=== PATIENT | female | born 1980 | race Caucasian/White ===

== ENCOUNTER → 2021-02-18 | Day surgery (SDC) | payer BC ==
[2011-12-23 09:42] VITALS: BP 127/77
--- NOTE | 2021-02-18 12:31 | RAD REPORT ---
EXAM DESCRIPTION: US - Breast Core BX w/US Guidance - 02/18/2021 10:53 am CLINICAL HISTORY: ICD N63.10, R92.8 COMPARISON: ultrasound February 14, 2021 TECHNIQUE: The risks, benefits alternatives to the procedure were explained to the patient and infor med consent obtained. Skin, subcutaneous and breast tissues anesthetized with lidocaine. Under sonographic guidance, two 14 gauge vacuum assisted core biopsies of the mass within the outer r ight breast performed. 2 centimeter specimens obtained. Tissue given to pathology. Subsequently a localizing clip was placed into the mass. Patient experienced no immediate complication IMPRESSION: Vacuum assisted core biopsies of the right breast mass
== END ==
LOC: DS 10:30
PROVIDERS: ATTEND Physician Assistant
DX: N63.10 Unspecified lump in the right breast, unspecified quadrant (principal); R92.8 Other abnormal and inconclusive findings on diagnostic imaging of breast
CPT/HCPCS: 19083; 88305

== ENCOUNTER 2022-03-30 14:25 | Emergency (ER) | payer BC, OTHER ==
--- OUTSIDE RECORDS SUMMARY | 2022-03-30 14:39 | XMS REPORT | Continuity of Care Document ---
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 times Medicin daily. e famotidine 2021-0 Yes [id number] 20mg Take 1 [facility] (PEPCID) 20 1-28 Tablet by Col lege MG tablet 00:00: mouth two of 00 times Medicin daily. e famotidine 2021-0 Yes [id number] 20mg Take 1 [facility] (PEPCID) 20 1-28 Tablet by Col lege MG tablet 00:00: mouth two of 00 times Medicin daily. e famotidine 2021-0 Yes [id number] 20mg Take 1 [facility] (PEPCID) 20 1-28 Tablet by Col lege MG tablet 00:00: mouth two of 00 times Medicin daily. e famotidine 2-0 Yes [id number] 20mg Take 1 [facility] (PEPCID) 20 1-28 Tablet by Col [facility]ge MG tablet 00:00: mouth two of 00 times Medicin daily. e famotidine 2-0 Yes [id number] 20mg Take 1 [facility] (PEPCID) 20 1-28 Tablet by Col [facility]ge MG tablet 00:00: mouth two of 00 times Medicin daily. e famotidine 2022-0 Yes [id number] 20mg Take 1 [facility] (PEPCID) 20 1-28 Tablet by Col lege MG tablet 00:00: mouth two of 00 times Medicin daily. e famotidine 2-0 Yes [id number] 20mg Take 1 [facility] (PEPCID) 20 1-28 Tablet by Col [facility]ge MG tablet 00:00: mouth two of 00 times Medicin daily. e famotidine Yes [id number] 20mg Take 1 [facility] (PEPCID) 20 - Tablet by Col lege MG tablet 00:00: mouth two of 00 times Medicin daily. e famotidine Yes [id number] 20mg Take 1 [facility] (PEPCID) 20 - Tablet by Col lege MG tablet 00:00: mouth two of 00 times Medicin daily. e venlafaxine 2021- No 50mg Take 1 [facility] (EFFEXOR) 1-28 -19 Tablet by [facility] 50 MG 00:00: 00:00 mouth 3 of tablet 00 :00 times Medicin daily. e venlafaxine Yes [id number] 37.5mg Take 1 [facility] (EFFEXOR) 1-26 Tablet by Colle ge 37.5 MG 00:00: mouth of tablet 00 daily. Medicin e venlafaxine Yes [id number] 37.5mg Take 1 [facility] (EFFEXOR) 1-26 Tablet by Colle ge 37.5 MG 00:00: mouth of tablet 00 daily. Medicin e Letrozole 2021- No TAKE 1 [facility] 2.5 MG TABS 1-18 06-27 TABLET BY Co llege 00:00: 00:00 MOUTH of 00 :00 EVERY DAY Medicin e Letrozole Yes TAKE 1 [facility] 2.5 MG TABS 1-13 TABLET BY Col lege 00:00: MOUTH of 00 EVERY DAY Medicin e Letrozole Yes TAKE 1 [facility] 2.5 MG TABS 1-13 TABLET BY Col lege 00:00: MOUTH of 00 EVERY DAY Medicin e Letrozole 2021-0 2021- No TAKE 1 [facility] 2.5 MG TABS 1-13 - TABLET BY Co llege 00:00: 00:00 MOUTH of 00 :00 EVERY DAY Medicin e VENLAFAXINE 2020-05 Yes [id number] 37.5mg TAKE 1 [facility] XR 37.5 mg 2-23 CAPSULE BY ity of 24 hr 00:00: MOUTH [place] capsule 00 DAILY WITH Medica l BREAKFAST. Branch VENLAFAXINE 2020-05 Yes [id number] 37.5mg TAKE 1 [facility] XR 37.5 mg 2-23 CAPSULE BY ity of 24 hr 00:00: MOUTH [place] capsule 00 DAILY WITH Medica l BREAKFAST. Branch VENLAFAXINE 2020-05 Yes [id number] 37.5mg TAKE 1 [facility] XR 37.5 mg 2-23 CAPSULE BY ity of 24 hr 00:00: MOUTH [place] capsule 00 DAILY WITH Medica l BREAKFAST. Branch VENLAFAXINE 2020-05 Yes [id number] 37.5mg TAKE 1 [facility] XR 37.5 mg 2-23 CAPSULE BY ity of 24 hr 00:00: MOUTH [place] capsule 00 DAILY WITH Medica l BREAKFAST. Branch VENLAFAXINE 2020-05 Yes [id number] 37.5mg TAKE 1 [facility] XR 37.5 mg 2-23 CAPSULE BY ity of 24 hr 00:00: MOUTH [place] capsule 00 DAILY WITH Medica l BREAKFAST. Branch VENLAFAXINE 2020-05 Yes [id number] 37.5mg TAKE 1 [facility] XR 37.5 mg 2-23 CAPSULE BY ity of 24 hr 00:00: MOUTH [place] capsule 00 DAILY WITH Medica l BREAKFAST. [place] Cyanocobala 2020-05 Yes Take by [facility] min 2-03 mouth. [place] (VITAMIN 13:54: of B12 OR) 59 Medicin e Cholecalcif 2020-05 Yes Take by [facility] nicol 2-03 mouth. [place] (VITAMIN 13:54: of D-3 OR) 59 Medicin e VITAMIN A 2020-05 Yes Take by [facility] [place] 2-03 mouth. [place] 13:54: of 59 Medicin e CRANBERRY 2020-[address] [facility] r OR 2-03 mouth. [place] 13:54: of 59 Medicin e Ascorbic 2020-05 Yes Take by [facility] Acid 2-03 mouth. [place] (VITAMIN C 13:54: of OR) 59 Medicin e Continuous 2020-05 Yes [facility] Blood Gluc 1-24 College Sensor 00:00: of (DEXCOM G6 00 Medicin SENSOR) e MISC Continuous 2020-05 Yes [facility] Blood Gluc 1-24 College Sensor 00:00: of (DEXCOM G6 00 Medicin SENSOR) e MISC Continuous 2020-05 Yes [facility] Blood Gluc 1-24 College Sensor 00:00: of (DEXCOM G6 00 Medicin SENSOR) e MISC Continuous 2020-05 Yes [facility] Blood Gluc 1-24 College Sensor 00:00: of (DEXCOM G6 00 Medicin SENSOR) e MISC Continuous 2020-05 Yes [facility] Blood Gluc 1-24 College Sensor 00:00: of (DEXCOM G6 00 Medicin SENSOR) e MISC Continuous 2020-05 Yes [facility] Blood Gluc 1-24 College Sensor 00:00: of (DEXCOM G6 00 Medicin SENSOR) e MISC Continuous 2020-05 Yes [facility] Blood Gluc 1-24 College Sensor 00:00: of (DEXCOM G6 00 Medicin SENSOR) e MISC Continuous 2020-05 Yes [facility] Blood Gluc 1-24 College Sensor 00:00: of (DEXCOM G6 00 Medicin SENSOR) e MISC Continuous 2020-05 Yes [facility] Blood Gluc 1-24 College Sensor 00:00: of (DEXCOM G6 00 Medicin SENSOR) e MISC Continuous 2020-05 Yes [facility] Blood Gluc 1-24 College Sensor 00:00: of (DEXCOM G6 00 Medicin SENSOR) e MISC Continuous 2020-05 Yes [facility] Blood Gluc 1-24 College Sensor 00:00: of (DEXCOM G6 00 Medicin SENSOR) e MISC Continuous 2020-05 Yes [facility] Blood Gluc 1-24 College Sensor 00:00: of (DEXCOM G6 00 Medicin SENSOR) e MISC Continuous 2020-05 Yes [facility] Blood Gluc 1-23 College Transmit 00:00: of (DEXCOM G6 00 Medicin TRANSMITTER e ) MISC Continuous 2020-05 Yes [facility] Blood Gluc 1-23 College Transmit 00:00: of (DEXCOM G6 00 Medicin TRANSMITTER e ) MISC Continuous 2020-05 Yes [facility] Blood Gluc 1-23 College Transmit 00:00: of (DEXCOM G6 00 Medicin TRANSMITTER e ) MISC Continuous 2020-05 Yes [facility] Blood Gluc 1-23 College Transmit 00:00: of (DEXCOM G6 00 Medicin TRANSMITTER e ) MISC Continuous 2020-05 Yes [facility] Blood Gluc 1-23 College Transmit 00:00: of (DEXCOM G6 00 Medicin TRANSMITTER e ) MISC Continuous 2020-05 Yes [facility] Blood Gluc 1-23 College Transmit 00:00: of (DEXCOM G6 00 Medicin TRANSMITTER e ) MISC Continuous 2020-05 Yes [facility] Blood Gluc 1-23 College Transmit 00:00: of (DEXCOM G6 00 Medicin TRANSMITTER e ) MISC Continuous 2020-05 Yes [facility] Blood Gluc 06-22 College Transmit 00:00: of (DEXCOM G6 00 Medicin TRANSMITTER e ) MISC Continuous 2020-05 Yes [facility] Blood Gluc 06-22 College Transmit 00:00: of (DEXCOM G6 00 Medicin TRANSMITTER e ) MISC Continuous 2020-05 Yes [facility] Blood Gluc 06-22 College Transmit 00:00: of (DEXCOM G6 00 Medicin TRANSMITTER e ) MISC Continuous 2020-05 Yes [facility] Blood Gluc 06-22 College Transmit 00:00: of (DEXCOM G6 00 Medicin TRANSMITTER e ) MISC Continuous 2020-05 Yes [facility] Blood Gluc 06-22 College Transmit 00:00: of (DEXCOM G6 00 Medicin TRANSMITTER e ) MISC Cyanocobala 2020-05 Yes Take by [facility] min 1-02 mouth. [place] (VITAMIN 13:28: of B12 OR) 38 Medicin e Cholecalcif 2020-05 Yes Take by [facility] nicol 1-02 mouth. [place] (VITAMIN 13:28: of D-3 OR) 38 Medicin e VITAMIN A 2020-05 Yes Take by [facility] OR 1-02 mouth. [place] 13:28: of 38 Medicin e CRANBERRY 2020-05 Yes Take by [facility] OR 1-02 mouth. [place] 13:28: of 38 Medicin e Ascorbic 2020-05 Yes Take by [facility] Acid 1-02 mouth. [place] (VITAMIN C 13:28: of OR) 38 Medicin e Cholecalcif 2020-05 Yes Take by [facility] nicol 0-15 mouth. [place] (VITAMIN 14:50: of D-3 OR) 13 Medicin e VITAMIN A 2020-05 Yes Take by [facility] OR 0-15 mouth. [place] 14:50: of 13 Medicin e CRANBERRY 2020-05 Yes Take by [facility] OR 0-15 mouth. [place] 14:50: of 13 Medicin e Ascorbic 2020-05 Yes Take by [facility] Acid 0-15 mouth. [place] (VITAMIN C 14:50: of OR) 13 Medicin e Cyanocobala 2020-05 Yes Take by [facility] min 0-15 mouth. [place] (VITAMIN 14:50: of B12 OR) 13 Medicin e Letrozole 2020-05 Yes 2.5mg Take 2.5 [facility] 2.5 MG TABS 0-15 mg by [place] 00:00: mouth of 00 daily. Medicin e Letrozole 2020-05 Yes 2.5mg Take 2.5 [facility] 2.5 MG TABS 0-15 mg by [place] 00:00: mouth of 00 daily. Medicin e Letrozole 2020-05 Yes 2.5mg Take 2.5 [facility] 2.5 MG TABS 0-15 mg by [place] 00:00: mouth of 00 daily. Medicin e Cyanocobala 2020-05 Yes Take by [facility] min 0-05 mouth. [place] (VITAMIN 14:56: of B12 OR) 39 Medicin e Cholecalcif 2020-05 Yes Take by [facility] nicol 0-05 mouth. [place] (VITAMIN 14:56: of D-3 OR) 39 Medicin e VITAMIN A 2020-05 Yes Take by [facility] OR 0-05 mouth. [place] 14:56: of 39 Medicin e CRANBERRY 2020-05 Yes Take by [facility] OR 0-05 mouth. [place] 14:56: of 39 Medicin e Ascorbic 2020-05 Yes Take by [facility] Acid 0-05 mouth. [place] (VITAMIN C 14:56: of OR) 39 Medicin e Cyanocobala 2020-05 Yes Take by [facility] min 0-05 mouth. [place] (VITAMIN 14:56: of B12 OR) 39 Medicin e Cholecalcif 2020-05 Yes Take by [facility] nicol 0-05 mouth. [place] (VITAMIN 14:56: of D-3 OR) 39 Medicin e VITAMIN A 2020-05 Yes Take by [facility] OR 0-05 mouth. [place] 14:56: of 39 Medicin e CRANBERRY 2020-05 Yes Take by [facility] OR 0-05 mouth. [place] 14:56: of 39 Medicin e Ascorbic 2020-05 Yes Take by [facility] Acid 0-05 mouth. [place] (VITAMIN C 14:56: of OR) 39 Medicin e famotidine 2020-05- No [id number] 20mg Take 1 [facility] (PEPCID) 20 0-05 10-05 Tablet by Co llege MG tablet 00:00: 00:00 mouth two of 00 :00 times Medicin daily. e metoprolol Yes TAKE 1 [facility] (TOPROL-XL) 8-01 TABLET BY Col [facility]ge 50 MG XL 00:00: MOUTH of tablet 00 EVERY DAY Medicin e metoprolol Yes TAKE 1 [facility] (TOPROL-XL) 8-01 TABLET BY Col [facility] 50 MG XL 00:00: MOUTH of tablet 00 EVERY DAY Medicin e metoprolol 0 Yes TAKE 1 [facility] (TOPROL-XL) 8-01 TABLET BY Col [facility] 50 MG XL 00:00: MOUTH of tablet 00 EVERY DAY Medicin e metoprolol Yes TAKE 1 [facility] (TOPROL-XL) 8-01 TABLET BY Col [facility] 50 MG XL 00:00: MOUTH of tablet 00 EVERY DAY Medicin e metoprolol Yes TAKE 1 [facility] (TOPROL-XL) 8-01 TABLET BY Col [facility]ge 50 MG XL 00:00: MOUTH of tablet 00 EVERY DAY Medicin e metoprolol Yes TAKE 1 [facility] (TOPROL-XL) 8-01 TABLET BY Col [facility] 50 MG XL 00:00: MOUTH of tablet 00 EVERY DAY Medicin e metoprolol Yes TAKE 1 [facility] (TOPROL-XL) 8-01 TABLET BY Col [facility] 50 MG XL 00:00: MOUTH of tablet 00 EVERY DAY Medicin e metoprolol Yes TAKE 1 [facility] (TOPROL-XL) 8-01 TABLET BY Col [facility] 50 MG XL 00:00: MOUTH of tablet 00 EVERY DAY Medicin e metoprolol Yes TAKE 1 [facility] (TOPROL-XL) 8-01 TABLET BY Col [facility] 50 MG XL 00:00: MOUTH of tablet 00 EVERY DAY Medicin e metoprolol Yes TAKE 1 [facility] (TOPROL-XL) 8-01 TABLET BY Col [facility] 50 MG XL 00:00: MOUTH of tablet 00 EVERY DAY Medicin e metoprolol 0 Yes TAKE 1 [facility] (TOPROL-XL) 8-01 TABLET BY Col [facility] 50 MG XL 00:00: MOUTH of tablet 00 EVERY DAY Medicin e metoprolol 0 Yes TAKE 1 [facility] (TOPROL-XL) 8-01 TABLET BY Col [facility] 50 MG XL 00:00: MOUTH of tablet 00 EVERY DAY Medicin e metoprolol Yes TAKE 1 [facility] (TOPROL-XL) 8-01 TABLET BY [facility] 50 MG XL 00:00: MOUTH of tablet 00 EVERY DAY Medicin e metoprolol Yes TAKE 1 [facility] (TOPROL-XL) 8-01 TABLET BY [facility] 50 MG XL 00:00: MOUTH of tablet 00 EVERY DAY Medicin e metoprolol Yes TAKE 1 [facility] (TOPROL-XL) 8-01 TABLET BY Col [facility] 50 MG XL 00:00: MOUTH of tablet 00 EVERY DAY Medicin e metoprolol Yes TAKE 1 [facility] (TOPROL-XL) 8-01 TABLET BY Col [facility] 50 MG XL 00:00: MOUTH of tablet 00 EVERY DAY Medicin e metoprolol Yes TAKE 1 [facility] (TOPROL-XL) 8-01 TABLET BY Col [facility] 50 MG XL 00:00: MOUTH of tablet 00 EVERY DAY Medicin e lisinopril Yes TAKE 1 [facility] (PRINIVIL, 7-28 TABLET BY [facility] ZESTRIL) 10 00:00: MOUTH of MG tablet 00 EVERY DAY Medic in e lisinopril Yes TAKE 1 [facility] (PRINIVIL, 7-28 TABLET BY [facility] ZESTRIL) 10 00:00: MOUTH of MG tablet 00 EVERY DAY Medic in e lisinopril Yes TAKE 1 [facility] (PRINIVIL, 7-28 TABLET BY [facility] ZESTRIL) 10 00:00: MOUTH of MG tablet 00 EVERY DAY Medic in e lisinopril Yes TAKE 1 [facility] (PRINIVIL, 7-28 TABLET BY [facility] ZESTRIL) 10 00:00: MOUTH of MG tablet 00 EVERY DAY Medic in e lisinopril Yes TAKE 1 [facility] (PRINIVIL, 7-28 TABLET BY [facility] ZESTRIL) 10 00:00: MOUTH of MG tablet 00 EVERY DAY Medic in e lisinopril Yes TAKE 1 [facility] (PRINIVIL, 7-28 TABLET BY [facility] ZESTRIL) 10 00:00: MOUTH of MG tablet 00 EVERY DAY Medic in e lisinopril Yes TAKE 1 [facility] (PRINIVIL, 7-28 TABLET BY [facility] ZESTRIL) 10 00:00: MOUTH of MG tablet 00 EVERY DAY Medic in e lisinopril Yes TAKE 1 [facility] (PRINIVIL, 7-28 TABLET BY [facility] ZESTRIL) 10 00:00: MOUTH of MG tablet 00 EVERY DAY Medic in e lisinopril Yes TAKE 1 [facility] (PRINIVIL, 7-28 TABLET BY [facility] ZESTRIL) 10 00:00: MOUTH of MG tablet 00 EVERY DAY Medic in e lisinopril Yes TAKE 1 [facility] (PRINIVIL, 7-28 TABLET BY [facility] ZESTRIL) 10 00:00: MOUTH of MG tablet 00 EVERY DAY Medic in e lisinopril Yes TAKE 1 [facility] (PRINIVIL, 7-28 TABLET BY [facility] ZESTRIL) 10 00:00: MOUTH of MG tablet 00 EVERY DAY Medic in e lisinopril Yes TAKE 1 [facility] (PRINIVIL, 7-28 TABLET BY [facility] ZESTRIL) 10 00:00: MOUTH of MG tablet 00 EVERY DAY Medic in e lisinopril Yes TAKE 1 [facility] (PRINIVIL, 7-28 TABLET BY [facility] ZESTRIL) 10 00:00: MOUTH of MG tablet 00 EVERY DAY Medic in e lisinopril Yes TAKE 1 [facility] (PRINIVIL, 7-28 TABLET BY [facility] ZESTRIL) 10 00:00: MOUTH of MG tablet 00 EVERY DAY Medic in e lisinopril Yes TAKE 1 [facility] (PRINIVIL, 7-28 TABLET BY [facility] ZESTRIL) 10 00:00: MOUTH of MG tablet 00 EVERY DAY Medic in e lisinopril Yes TAKE 1 [facility] (PRINIVIL, 7-28 TABLET BY [facility] ZESTRIL) 10 00:00: MOUTH of MG tablet 00 EVERY DAY Medic in e lisinopril Yes TAKE 1 [facility] (PRINIVIL, 7-28 TABLET BY [facility] ZESTRIL) 10 00:00: MOUTH of MG tablet 00 EVERY DAY Medic in e VENLAFAXINE Yes [id number] 37.5mg TAKE 1 [facility] XR 37.5 mg 6-29 CAPSULE BY ity of 24 hr 00:00: MOUTH [place] capsule 00 DAILY WITH Medica l BREAKFAST. Branch VENLAFAXINE 0 Yes [id number] 37.5mg TAKE 1 [facility] XR 37.5 mg 6-29 CAPSULE BY ity of 24 hr 00:00: MOUTH [place] capsule 00 DAILY WITH Medica l BREAKFAST. Branch VENLAFAXINE 0 Yes [id number] 37.5mg TAKE 1 [facility] XR 37.5 mg 6-29 CAPSULE BY ity of 24 hr 00:00: MOUTH [place] capsule 00 DAILY WITH Medica l BREAKFAST. Branch VENLAFAXINE 2020- No [id number] 37.5mg TAKE 1 [facility] XR 37.5 mg 6-29 12-23 CAPSULE BY it y of 24 hr 00:00: 00:00 MOUTH [place] capsule 00 :00 DAILY WITH Medica l BREAKFAST. Branch ergocalcife Yes [id number] Take 1 [facility] rol, 1-18 capsule by ity of vitamin d2, 00:00: mouth [place] 1,250 mcg 00 weekly. Medical (50,000 Branch unit) capsule ergocalcife 0 Yes [id number] Take 1 [facility] rol, 1-18 capsule by ity of vitamin d2, 00:00: mouth [place] 1,250 mcg 00 weekly. Medical (50,000 Branch unit) capsule calcium 0 Yes [id number] 500mg Take 1 [facility] carbonate 1-18 tablet by ity o f (CALCIUM 00:00: mouth [place] 500) 500 mg 00 daily. Medica l calcium Branch (1,250 mg) tablet ergocalcife 0 Yes [id number] Take 1 [facility] rol, 1-18 capsule by ity of vitamin d2, 00:00: mouth [place] 1,250 mcg 00 weekly. Medical (50,000 Branch unit) capsule calcium 0 Yes [id number] 500mg Take 1 [facility] carbonate 1-18 tablet by ity o f (CALCIUM 00:00: mouth [place] 500) 500 mg 00 daily. Medica l calcium Branch (1,250 mg) tablet ergocalcife 0 Yes [id number] Take 1 [facility] rol, 1-18 capsule by ity of vitamin d2, 00:00: mouth [place] 1,250 mcg 00 weekly. Medical (50,000 Branch unit) capsule calcium 2020-0 Yes [id number] 500mg Take 1 [facility] carbonate 1-18 tablet by ity o f (CALCIUM 00:00: mouth [place] 500) 500 mg 00 daily. Medica l calcium Branch (1,250 mg) tablet ergocalcife 2020-0 Yes [id number] Take 1 [facility] rol, 1-18 capsule by ity of vitamin d2, 00:00: mouth [place] 1,250 mcg 00 weekly. Medical (50,000 Branch unit) capsule calcium 2020-0 Yes [id number] 500mg Take 1 [facility] carbonate 1-18 tablet by ity o f (CALCIUM 00:00: mouth [place] 500) 500 mg 00 daily. Medica l calcium Branch (1,250 mg) tablet ergocalcife 2020-0 Yes [id number] Take 1 [facility] rol, 1-18 capsule by ity of vitamin d2, 00:00: mouth [place] 1,250 mcg 00 weekly. Medical (50,000 Branch unit) capsule calcium 2020-0 Yes [id number] 500mg Take 1 [facility] carbonate 1-18 tablet by ity o f (CALCIUM 00:00: mouth [place] 500) 500 mg 00 daily. Medica l calcium Branch (1,250 mg) tablet ergocalcife 2020-0 Yes [id number] Take 1 [facility] rol, 1-18 capsule by ity of vitamin d2, 00:00: mouth [place] 1,250 mcg 00 weekly. Medical (50,000 Branch unit) capsule calcium 2020-0 Yes [id number] 500mg Take 1 [facility] carbonate 1-18 tablet by ity o f (CALCIUM 00:00: mouth [place] 500) 500 mg 00 daily. Medica l calcium Branch (1,250 mg) tablet ergocalcife 1-0 Yes [id number] Take 1 [facility] rol, 1-18 capsule by ity of vitamin d2, 00:00: mouth [place] 1,250 mcg 00 weekly. Medical (50,000 Branch unit) capsule calcium 2021-0 Yes [id number] 500mg Take 1 [facility] carbonate 1-18 tablet by ity o f (CALCIUM 00:00: mouth [place] 500) 500 mg 00 daily. Medica l calcium Branch (1,250 mg) tablet ergocalcife 2020-0 Yes [id number] Take 1 [facility] rol, 1-18 capsule by ity of vitamin d2, 00:00: mouth [place] 1,250 mcg 00 weekly. Medical (50,000 Branch unit) capsule calcium 2020-0 Yes [id number] 500mg Take 1 [facility] carbonate 1-18 tablet by ity o f (CALCIUM 00:00: mouth [place] 500) 500 mg 00 daily. Medica l calcium Branch (1,250 mg) tablet ergocalcife 2020-0 Yes [id number] Take 1 [facility] rol, 1-18 capsule by ity of vitamin d2, 00:00: mouth [place] 1,250 mcg 00 weekly. Medical (50,000 Branch unit) capsule calcium 2020-0 Yes [id number] 500mg Take 1 [facility] carbonate 1-18 tablet by ity o f (CALCIUM 00:00: mouth [place] 500) 500 mg 00 daily. Medica l calcium Branch (1,250 mg) tablet ergocalcife 2020-0 Yes [id number] Take 1 [facility] rol, 1-18 capsule by ity of vitamin d2, 00:00: mouth [place] 1,250 mcg 00 weekly. Medical (50,000 Branch unit) capsule calcium 2020-0 Yes [id number] 500mg Take 1 [facility] carbonate 1-18 tablet by ity o f (CALCIUM 00:00: mouth [place] 500) 500 mg 00 daily. Medica l calcium Branch (1,250 mg) tablet ergocalcife 2020-0 Yes [id number] Take 1 [facility] rol, 1-18 capsule by ity of vitamin d2, 00:00: mouth [place] 1,250 mcg 00 weekly. Medical (50,000 Branch unit) capsule calcium 2020-0 Yes [id number] 500mg Take 1 [facility] carbonate 1-18 tablet by ity o f (CALCIUM 00:00: mouth [place] 500) 500 mg 00 daily. Medica l calcium Branch (1,250 mg) tablet venlafaxine 2019- Yes [id number] 37.5mg Take 1 [facility] XR 37.5 mg 2-23 capsule by ity of 24 hr 00:00: mouth [place] capsule 00 daily with Medica l breakfast. Branch venlafaxine 2019- Yes [id number] 37.5mg Take 1 [facility] XR 37.5 mg 2-23 capsule by ity of 24 hr 00:00: mouth [place] capsule 00 daily with Medica l breakfast. Branch venlafaxine 2019-05 Yes [id number] 37.5mg Take 1 [facility] XR 37.5 mg 2-23 capsule by ity of 24 hr 00:00: mouth [place] capsule 00 daily with Medica l breakfast. Branch venlafaxine 2019-05 Yes [id number] 37.5mg Take 1 [facility] XR 37.5 mg 2-23 capsule by ity of 24 hr 00:00: mouth [place] capsule 00 daily with Medica l breakfast. Branch venlafaxine 2019-05 Yes [id number] 37.5mg Take 1 [facility] XR 37.5 mg 2-23 capsule by ity of 24 hr 00:00: mouth [place] capsule 00 daily with Medica l breakfast. Branch venlafaxine 2019-05 Yes [id number] 37.5mg Take 1 [facility] XR 37.5 mg 2-23 capsule by ity of 24 hr 00:00: mouth [place] capsule 00 daily with Medica l breakfast. Branch venlafaxine 2019-05 Yes [id number] 37.5mg Take 1 [facility] XR 37.5 mg 2-23 capsule by ity of 24 hr 00:00: mouth [place] capsule 00 daily with Medica l breakfast. Branch venlafaxine 2019-05 Yes [id number] 37.5mg Take 1 [facility] XR 37.5 mg 2-23 capsule by ity of 24 hr 00:00: mouth [place] capsule 00 daily with Medica l breakfast. Branch venlafaxine 2019-05 Yes [id number] 37.5mg Take 1 [facility] XR 37.5 mg 2-23 capsule by ity of 24 hr 00:00: mouth [place] capsule 00 daily with Medica l breakfast. Branch venlafaxine 2019-05- No [id number] 37.5mg Take 1 [facility] XR 37.5 mg 2-23 -29 capsule by it y of 24 hr 00:00: 00:00 mouth [place] capsule 00 :00 daily with Medica l breakfast. Branch TRESIBA 2019-05 Yes 16U inject 16 Unive rs FLEXTOUCH 2-22 Units ity of U-100 100 00:00: under the [place] as unit/mL (3 00 skin Medical mL) InPn daily. Branch TRESIBA 2019-05 Yes 16U inject 16 Unive rs FLEXTOUCH 2-22 Units ity of U-100 100 00:00: under the [place] as unit/mL (3 00 skin Medical mL) InPn daily. Branch [facility] 2019-05 Yes 16U inject 16 Unive rs FLEXTOUCH 2-22 Units ity of U-100 100 00:00: under the [place] as unit/mL (3 00 skin Medical mL) InPn daily. Branch [facility] 2019-05 Yes 16U inject 16 Unive rs FLEXTOUCH 2-22 Units ity of U-100 100 00:00: under the [place] as unit/mL (3 00 skin Medical mL) InPn daily. Branch [facility] 16U inject 16 Unive rs FLEXTOUCH 2-22 Units ity of U-100 100 00:00: under the [place] as unit/mL (3 00 skin Medical mL) InPn daily. Branch [facility] 2019-05 Yes 16U inject 16 Unive rs FLEXTOUCH 2-22 Units ity of U-100 100 00:00: under the [place] as unit/mL (3 00 skin Medical mL) InPn daily. Branch [facility] 2019-05 Yes 16U inject 16 Unive rs FLEXTOUCH 2-22 Units ity of U-100 100 00:00: under the [place] as unit/mL (3 00 skin Medical mL) InPn daily. Branch [facility] 2019-05 Yes 16U inject 16 Unive rs FLEXTOUCH 2-22 Units ity of U-100 100 00:00: under the [place] as unit/mL (3 00 skin Medical mL) InPn daily. Branch [facility] Yes 16U inject 16 Unive rs FLEXTOUCH 2-22 Units ity of U-100 100 00:00: under the [place] as unit/mL (3 00 skin Medical mL) InPn daily. Branch [facility]05 Yes 16U inject 16 Unive rs FLEXTOUCH 2-22 Units ity of U-100 100 00:00: under the [place] as unit/mL (3 00 skin Medical mL) InPn daily. Branch [facility] 2019-05 Yes 16U inject 16 Unive rs FLEXTOUCH 2-22 Units ity of U-100 100 00:00: under the [place] as unit/mL (3 00 skin Medical mL) InPn daily. Branch [facility] Yes 16U inject 16 Unive rs FLEXTOUCH 2-22 Units ity of U-100 100 00:00: under the [place] as unit/mL (3 00 skin Medical mL) InPn daily. Branch TRESIBA 2019- Yes 16U inject 16 Unive rs FLEXTOUCH 2-22 Units ity of U-100 100 00:00: under the [place] as unit/mL (3 00 skin Medical mL) InPn daily. Branch TRESIBA 2019- Yes 16U inject 16 Unive rs FLEXTOUCH 2-22 Units ity of U-100 100 00:00: under the [place] as unit/mL (3 00 skin Medical mL) InPn daily. Branch TRESIBA 2019-05 Yes 16U inject 16 Unive rs FLEXTOUCH 2-22 Units ity of U-100 100 00:00: under the [place] as unit/mL (3 00 skin Medical mL) InPn daily. Branch DEXCOM G6 2019-05 Yes USE Univer s SENSOR Alelgra 2-11 DIRECTED ity of 00:00: TO CHECK [place] 00 BLOOD Medical SUGAR 4 Branch TIMES A DAY DEXCOM G6 2019-05 Yes USE Univer s SENSOR Allegra 2-11 DIRECTED ity of 00:00: TO CHECK [place] 00 BLOOD Medical SUGAR 4 Branch TIMES A DAY DEXCOM G6 2019-05 Yes USE Univer s SENSOR Allegra 2-11 DIRECTED ity of 00:00: TO CHECK [place] 00 BLOOD Medical SUGAR 4 Branch TIMES A DAY DEXCOM G6 2019-05 Yes USE Univer s SENSOR Allegra 2-11 DIRECTED ity of 00:00: TO CHECK [place] 00 BLOOD Medical SUGAR 4 Branch TIMES A DAY DEXCOM G6 2019-05 Yes USE Univer s SENSOR [place] 2-11 DIRECTED ity of 00:00: TO CHECK [place] 00 BLOOD Medical SUGAR 4 Branch TIMES A DAY DEXCOM G6 2019-05 Yes USE Univer s SENSOR [place] 2-11 DIRECTED ity of 00:00: TO CHECK [place] 00 BLOOD Medical SUGAR 4 Branch TIMES A DAY DEXCOM G6 2019-05 Yes USE Univer s SENSOR [place] 2-11 DIRECTED ity of 00:00: TO CHECK [place] 00 BLOOD Medical SUGAR 4 Branch TIMES A DAY DEXCOM G6 2019-05 Yes USE Univer s SENSOR [place] 2-11 DIRECTED ity of 00:00: TO CHECK [place] 00 BLOOD Medical SUGAR 4 Branch TIMES A DAY DEXCOM G6 2019-05 Yes USE Univer s SENSOR [place] 2-11 DIRECTED ity of 00:00: TO CHECK [place] 00 BLOOD Medical SUGAR 4 Branch TIMES A DAY DEXCOM G6 2020-1 Yes USE Univer s SENSOR [place] 2-11 DIRECTED ity of 00:00: TO CHECK [place] 00 BLOOD Medical SUGAR 4 Branch TIMES A DAY DEXCOM G6 2020-1 Yes USE Univer s SENSOR [place] 2-11 DIRECTED ity of 00:00: TO CHECK [place] 00 BLOOD Medical SUGAR 4 Branch TIMES A DAY DEXCOM G6 2020-1 Yes USE Univer s SENSOR [place] 2-11 DIRECTED ity of 00:00: TO CHECK [place] 00 BLOOD Medical SUGAR 4 Branch TIMES A DAY DEXCOM G6 2020-1 Yes USE Univer s SENSOR [place] 2-11 DIRECTED ity of 00:00: TO CHECK [place] 00 BLOOD Medical SUGAR 4 Branch TIMES A DAY DEXCOM G6 2020-1 Yes USE Univer s SENSOR [place] 2-11 DIRECTED ity of 00:00: TO CHECK [place] 00 BLOOD Medical SUGAR 4 Branch TIMES A DAY DEXCOM G6 2020-1 Yes USE Univer s SENSOR [place] 2-11 DIRECTED ity of 00:00: TO CHECK [place] 00 BLOOD Medical SUGAR 4 Branch TIMES A DAY DEXCOM G6 2020-1 Yes USE Univer s TRANSMITTER 0-14 DIRECTED ity of [place] 00:00: CHECK [place] 00 BLOOD Medical SUGAR FOUR Branch TIMES DAILY DEXCOM G6 2020-1 Yes USE Univer s TRANSMITTER 0-14 DIRECTED ity of [place] 00:00: CHECK [place] 00 BLOOD Medical SUGAR FOUR Branch TIMES DAILY DEXCOM G6 2020-1 Yes USE Univer s TRANSMITTER 0-14 DIRECTED ity of [place] 00:00: CHECK [place] 00 BLOOD Medical SUGAR FOUR Branch TIMES DAILY DEXCOM G6 2020-1 Yes USE Univer s TRANSMITTER 0-14 DIRECTED ity of [place] 00:00: CHECK [place] 00 BLOOD Medical SUGAR FOUR Branch TIMES DAILY DEXCOM G6 2020-1 Yes USE Univer s TRANSMITTER 0-14 DIRECTED ity of [place] 00:00: CHECK [place] 00 BLOOD Medical SUGAR FOUR Branch TIMES DAILY DEXCOM G6 2020-1 Yes USE Univer s TRANSMITTER 0-14 DIRECTED ity of [place] 00:00: CHECK [place] 00 BLOOD Medical SUGAR FOUR Branch TIMES DAILY DEXCOM G6 2020-1 Yes USE Univer s TRANSMITTER 0-14 DIRECTED ity of [place] 00:00: CHECK [place] 00 BLOOD Medical SUGAR FOUR Branch TIMES DAILY DEXCOM G6 2020-1 Yes USE Univer s TRANSMITTER 0-14 DIRECTED ity of [place] 00:00: CHECK [place] 00 BLOOD Medical SUGAR FOUR Branch TIMES DAILY DEXCOM G6 2019- Yes USE Univer s TRANSMITTER 0-14 DIRECTED ity of [place] 00:00: CHECK [place] 00 BLOOD Medical SUGAR FOUR Branch TIMES DAILY DEXCOM G6 2019- Yes USE Univer s TRANSMITTER 0-14 DIRECTED ity of [place] 00:00: CHECK [place] 00 BLOOD Medical SUGAR FOUR Branch TIMES DAILY DEXCOM G6 2019- Yes USE Univer s TRANSMITTER 0-14 DIRECTED ity of [place] 00:00: CHECK [place] 00 BLOOD Medical SUGAR FOUR Branch TIMES DAILY DEXCOM G6 2019- Yes USE Univer s TRANSMITTER 0-14 DIRECTED ity of [place] 00:00: CHECK [place] 00 BLOOD Medical SUGAR FOUR Branch TIMES DAILY DEXCOM G6 2019- Yes USE Univer s TRANSMITTER 0-14 DIRECTED ity of [place] 00:00: CHECK [place] 00 BLOOD Medical SUGAR FOUR Branch TIMES DAILY DEXCOM G6 2019- Yes USE Univer s TRANSMITTER 0-14 DIRECTED ity of [place] 00:00: CHECK [place] 00 BLOOD Medical SUGAR FOUR Branch TIMES DAILY DEXCOM G6 2019- Yes USE Univer s TRANSMITTER 0-14 DIRECTED ity of [place] 00:00: CHECK [place] 00 BLOOD Medical SUGAR FOUR Branch TIMES DAILY venlafaxine 2020-0 Yes [id number] 37.5mg Take 1 [facility] XR 37.5 mg 7-06 capsule by ity of 24 hr 00:00: mouth [place] capsule 00 daily with Medica l breakfast. [place] venlafaxine 2019-0 Yes [id number] 37.5mg Take 1 [facility] XR 37.5 mg 7-06 capsule by ity of 24 hr 00:00: mouth [place] capsule 00 daily with Medica l breakfast. [place] venlafaxine 2019-0 2020- No [id number] 37.5mg Take 1 [facility] XR 37.5 mg 7-06 12-23 capsule by it y of 24 hr 00:00: 00:00 mouth [place] capsule 00 :00 daily with Medica l breakfast. [place] venlafaxine 2020-0 Yes [id number] 37.5mg Take 1 [facility] XR 37.5 mg 4-07 capsule by ity of 24 hr 00:00: mouth [place] capsule 00 daily with Medica l breakfast. [place] venlafaxine 2019-0 2020- No [id number] 37.5mg Take 1 [facility] XR 37.5 mg 4-07 07-06 capsule by it y of 24 hr 00:00: 00:00 mouth [place] capsule 00 :00 daily with Medica l breakfast. [place] VENLAFAXINE 2018- Yes [id number] 37.5mg TAKE 1 [facility] XR 37.5 mg 2-16 CAPSULE BY ity of 24 hr 00:00: MOUTH [place] capsule 00 DAILY WITH Medica l BREAKFAST. [place] VENLAFAXINE 2018-05 2020- No [id number] 37.5mg TAKE 1 [facility] XR 37.5 mg 2-16 04-07 CAPSULE BY it y of 24 hr 00:00: 00:00 MOUTH [place] capsule 00 :00 DAILY WITH Medica l BREAKFAST. [place] venlafaxine 2019-0 Yes [facility] ([facility]) 11-28 [place] 37.5 MG 00:00: of tablet 00 Medicin e Insulin 2019-0 Yes daily. [facility]art 11-28 [place] (NOVOLOG 00:00: of FLEXPEN) 00 Medicin 100 UNIT/ML e SOPN Insulin 2019-0 Yes 10U Inject 10 Baylo r Degludec 7-01 Units into [place] (TRESIBA 00:00: the skin of FLEXTOUCH) 00 daily. Medicin 100 UNIT/ML e SOPN venlafaxine 2019-0 Yes [facility] ([facility]) 11-28 [place] 37.5 MG 00:00: of tablet 00 Medicin e Insulin 2019-0 Yes daily. [facility] Aspart 11-28 [place] (NOVOLOG 00:00: of FLEXPEN) 00 Medicin 100 UNIT/ML e SOPN Insulin 2019-0 Yes 10U Inject 10 Baylo r Degludec 7-01 Units into [place] (TRESIBA 00:00: the skin of FLEXTOUCH) 00 daily. Medicin 100 UNIT/ML e SOPN Insulin 2019-0 Yes daily. [facility] 11-28 [place] (NOVOLOG 00:00: of FLEXPEN) 00 Medicin 100 UNIT/ML e SOPN Insulin 2019-0 Yes 10U Inject 10 Baylo r Degludec 7-01 Units into [place] (TRESIBA 00:00: the skin of FLEXTOUCH) 00 daily. Medicin 100 UNIT/ML e SOPN Insulin 2019-0 Yes daily. [facility] 11-28 [place] (NOVOLOG 00:00: of FLEXPEN) 00 Medicin 100 UNIT/ML e SOPN Insulin 2019-0 Yes 10U Inject 10 Baylo r Degludec 7-01 Units into [place] (TRESIBA 00:00: the skin of FLEXTOUCH) 00 daily. Medicin 100 UNIT/ML e SOPN venlafaxine 2019-0 Yes [facility] ([facility]) 11-28 [place] 37.5 MG 00:00: of tablet 00 Medicin e Insulin 2019-0 Yes daily. [facility] Aspart 11-28 [place] (NOVOLOG 00:00: of FLEXPEN) 00 Medicin 100 UNIT/ML e SOPN Insulin 2019-0 Yes 10U Inject 10 Baylo r Degludec 7-01 Units into [place] (TRESIBA 00:00: the skin of FLEXTOUCH) 00 daily. Medicin 100 UNIT/ML e SOPN Insulin 2019-0 Yes daily. [facility] Aspart 11-28 [place] (NOVOLOG 00:00: of FLEXPEN) 00 Medicin 100 UNIT/ML e SOPN Insulin 2019-0 Yes 10U Inject 10 Baylo r Degludec 7-01 Units into [place] (TRESIBA 00:00: the skin of FLEXTOUCH) 00 daily. Medicin 100 UNIT/ML e SOPN Insulin 2019-0 Yes daily. [facility] Aspart 11-28 [place] (NOVOLOG 00:00: of FLEXPEN) 00 Medicin 100 UNIT/ML e SOPN Insulin 2019-0 Yes 10U Inject 10 Baylo r Degludec 7-01 Units into [place] (TRESIBA 00:00: the skin of FLEXTOUCH) 00 daily. Medicin 100 UNIT/ML e SOPN Insulin 2019-0 Yes daily. [facility] Aspart 11-28 [place] (NOVOLOG 00:00: of FLEXPEN) 00 Medicin 100 UNIT/ML e SOPN Insulin 2019-0 Yes 10U Inject 10 Baylo r Degludec 7-01 Units into [place]le ge (TRESIBA 00:00: the skin of FLEXTOUCH) 00 daily. Medicin 100 UNIT/ML e SOPN Insulin 2019-0 Yes daily. [facility] Aspart 11-28 [place] (NOVOLOG 00:00: of FLEXPEN) 00 Medicin 100 UNIT/ML e SOPN Insulin 2019-0 Yes 10U Inject 10 Baylo r Degludec 7-01 Units into [place] (TRESIBA 00:00: the skin of FLEXTOUCH) 00 daily. Medicin 100 UNIT/ML e SOPN Insulin 2019-0 Yes daily. [facility] Aspart 11-28 [place] (NOVOLOG 00:00: of FLEXPEN) 00 Medicin 100 UNIT/ML e SOPN Insulin 2019-0 Yes 10U Inject 10 Baylo r Degludec 7-01 Units into [place] (TRESIBA 00:00: the skin of FLEXTOUCH) 00 daily. Medicin 100 UNIT/ML e SOPN Insulin 2019-0 Yes daily. [facility] Aspart 11-28 [place] (NOVOLOG 00:00: of FLEXPEN) 00 Medicin 100 UNIT/ML e SOPN Insulin 2019-0 Yes 10U Inject 10 Baylo r Degludec 7-01 Units into [place] (TRESIBA 00:00: the skin of FLEXTOUCH) 00 daily. Medicin 100 UNIT/ML e SOPN Insulin 2019-0 Yes daily. [facility] Aspart 11-28 [place] (NOVOLOG 00:00: of FLEXPEN) 00 Medicin 100 UNIT/ML e SOPN Insulin 2019-0 Yes 10U Inject 10 Baylo r Degludec 7-01 Units into [place] (TRESIBA 00:00: the skin of FLEXTOUCH) 00 daily. Medicin 100 UNIT/ML e SOPN venlafaxine 2019-0 Yes [facility] ([place]) 11-28 [place] 37.5 MG 00:00: of tablet 00 Medicin e Insulin 2019-0 Yes daily. [facility] Aspart 11-28 [place] (NOVOLOG 00:00: of FLEXPEN) 00 Medicin 100 UNIT/ML e SOPN Insulin 2019-0 Yes 10U Inject 10 Baylo r Degludec 7-01 Units into [place] (TRESIBA 00:00: the skin of FLEXTOUCH) 00 daily. Medicin 100 UNIT/ML e SOPN Insulin 2019-0 Yes daily. [facility] Aspart 11-28 [place] (NOVOLOG 00:00: of FLEXPEN) 00 Medicin 100 UNIT/ML e SOPN Insulin 2019-0 Yes 10U Inject 10 Baylo r Degludec 7-01 Units into [place] (TRESIBA 00:00: the skin of FLEXTOUCH) 00 daily. Medicin 100 UNIT/ML e SOPN Insulin 2019-0 Yes daily. [facility] Aspart 11-28 [place] (NOVOLOG 00:00: of FLEXPEN) 00 Medicin 100 UNIT/ML e SOPN Insulin 2019-0 Yes 10U Inject 10 Baylo r Degludec 7-01 Units into [place] (TRESIBA 00:00: the skin of FLEXTOUCH) 00 daily. Medicin 100 UNIT/ML e SOPN Insulin 2019-0 Yes daily. [facility] Aspart 11-28 [place] (NOVOLOG 00:00: of FLEXPEN) 00 Medicin 100 UNIT/ML e SOPN Insulin 2019-0 Yes 10U Inject 10 Baylo r Degludec 7- Units into Colle ge (TRESIBA 00:00: the skin of FLEXTOUCH) 00 daily. Medicin 100 UNIT/ML e SOPN venlafaxine 2019-0 Yes [facility] ([place]) 11-28 [place] 37.5 MG 00:00: of tablet 00 Medicin e Insulin 2019-0 Yes daily. [facility] Aspart 11-28 [place] (NOVOLOG 00:00: of FLEXPEN) 00 Medicin 100 UNIT/ML e SOPN Insulin 2019-0 Yes 10U Inject 10 Baylo r Degludec 7- Units into [place] (TRESIBA 00:00: the skin of FLEXTOUCH) 00 daily. Medicin 100 UNIT/ML e SOPN omeprazole 2019-0 Yes TK 1 C PO Un [place] 40 mg 6-15 D ity of capsule 00:00: [place] [facility] omeprazole 2019-0 Yes TK 1 C PO Un gil[place] 40 mg 6-15 D ity of capsule 00:00: [place] [facility] omeprazole 2019-0 Yes TK 1 C PO Un [place] 40 mg 6-15 D ity of capsule 00:00: [place] [facility] omeprazole 2019-0 Yes TK 1 C PO Un [place] 40 mg 6-15 D ity of capsule 00:00: [place] [facility] omeprazole 2019-0 Yes TK 1 C PO Un [place] 40 mg 6-15 D ity of capsule 00:00: [place] [facility] omeprazole 2019-0 Yes TK 1 C PO Un [place] 40 mg 6-15 D ity of capsule 00:00: [place] [facility] omeprazole 2019-0 Yes TK 1 C PO Un [place] 40 mg 6-15 D ity of capsule 00:00: [place] [facility] omeprazole 2019-0 Yes TK 1 C PO Un [place] 40 mg 6-15 D ity of capsule 00:00: [address] omeprazole 2019-0 Yes TK 1 C PO Un [place] 40 mg 6-15 D ity of capsule 00:00: [place] [facility] omeprazole 2019-0 Yes TK 1 C PO Un [place] 40 mg 6-15 D ity of capsule 00:00: [place] [facility] omeprazole 2019-0 Yes TK 1 C PO Un [place] 40 mg 6-15 D ity of capsule 00:00: [place] [facility] omeprazole 2019-0 Yes TK 1 C PO Un [place] 40 mg 6-15 D ity of capsule 00:00: [place] [facility] omeprazole 2019-0 Yes TK 1 C PO Un [place] 40 mg 6-15 D ity of capsule 00:00: [address] omeprazole 2019-0 Yes TK 1 C PO Un [place] 40 mg 6-15 D ity of capsule 00:00: [place] [facility] omeprazole 2019-0 Yes TK 1 C PO Un [place] 40 mg 6-15 D ity of capsule 00:00: [address] omeprazole 2019-0 Yes TK 1 C PO Un [place] 40 mg 6-15 D ity of capsule 00:00: [place] [facility] omeprazole 2019-0 Yes TK 1 C PO Un [place] 40 mg 6-15 D ity of capsule 00:00: [place] [facility] omeprazole 2019-0 Yes TK 1 C PO Un [place] 40 mg 6-15 D ity of capsule 00:00: [place] [facility] omeprazole 2019-0 Yes TK 1 C PO Un [place] 40 mg 6-15 D ity of capsule 00:00: [place] [facility] omeprazole 2019-0 Yes TK 1 C PO Un [place] 40 mg 6-15 D ity of capsule 00:00: [place] [facility] omeprazole 2019-0 Yes TK 1 C PO Un [place] 40 mg 6-15 D ity of capsule 00:00: [address] omeprazole 2019-0 Yes TK 1 C PO Un [place] 40 mg 6-15 D ity of capsule 00:00: [place] [facility] omeprazole 2019-0 Yes TK 1 C PO Un [place] 40 mg 6-15 D ity of capsule 00:00: [place] [facility] omeprazole 2019-0 Yes TK 1 C PO Un [place] 40 mg 6-15 D ity of capsule 00:00: [place] 00 Medical Branch ONETOUCH 0 Yes daily. 1 Unive rs ULTRA TEST 9-22 to 2 times ity of strip 00:00: daily [place] [facility] ONETOUCH 0 Yes daily. 1 Unive rs ULTRA TEST 9-22 to 2 times ity of strip 00:00: daily [place] [facility] ONETOUCH 0 Yes daily. 1 Unive rs ULTRA TEST 9-22 to 2 times ity of strip 00:00: daily [place] [facility] ONETOUCH 0 Yes daily. 1 Unive rs ULTRA TEST 9-22 to 2 times ity of strip 00:00: daily [place] [facility] ONETOUCH 0 Yes daily. 1 Unive rs ULTRA TEST 9-22 to 2 times ity of strip 00:00: daily [place] [facility] ONETOUCH Yes daily. 1 Unive rs ULTRA TEST 9-22 to 2 times ity of strip 00:00: daily Medical Branch ONETOUCH 0 Yes daily. 1 Unive rs ULTRA TEST 9-22 to 2 times ity of strip 00:00: daily [place] [facility] ONETOUCH 0 Yes daily. 1 Unive rs ULTRA TEST 9-22 to 2 times ity of strip 00:00: daily [place] [facility] ONETOUCH Yes daily. 1 Unive rs ULTRA TEST 9-22 to 2 times ity of strip 00:00: daily [place] [facility] ONETOUCH 0 Yes daily. 1 Unive rs ULTRA TEST 9-22 to 2 times ity of strip 00:00: daily Medical Branch ONETOUCH 0 Yes daily. 1 Unive rs ULTRA TEST 9-22 to 2 times ity of strip 00:00: daily [place] [facility] ONETOUCH Yes daily. 1 Unive rs ULTRA TEST 9-22 to 2 times ity of strip 00:00: daily [place] [facility] ONETOUCH 0 Yes daily. 1 Unive rs ULTRA TEST 9-22 to 2 times ity of strip 00:00: daily [place] [facility] ONETOUCH 0 Yes daily. 1 Unive rs ULTRA TEST 9-22 to 2 times ity of strip 00:00: daily [place] [facility] ONETOUCH 0 Yes daily. 1 Unive rs ULTRA TEST 9-22 to 2 times ity of strip 00:00: daily [place] [facility] ONETOUCH 2014-0 Yes daily. 1 Unive rs ULTRA TEST 22 to 2 times ity of strip 00:00: daily [place] [facility] ONETOUCH 2014-0 Yes daily. 1 Unive rs ULTRA TEST 22 to 2 times ity of strip 00:00: daily [place] [facility] ONETOUCH 2014-0 Yes daily. 1 Unive rs ULTRA TEST 02-19 to 2 times ity of strip 00:00: daily [place] [facility] ONETOUCH 2014-0 Yes daily. 1 Unive rs ULTRA TEST 02-19 to 2 times ity of strip 00:00: daily [place] [facility] ONETOUCH 2014-0 Yes daily. 1 Unive rs ULTRA TEST 02-19 to 2 times ity of strip 00:00: daily [place] [facility] ONETOUCH 2014-0 Yes daily. 1 Unive rs ULTRA TEST 02-19 to 2 times ity of strip 00:00: daily Medical Branch ONETOUCH 2014-0 Yes daily. 1 Unive rs ULTRA TEST 02-19 to 2 times ity of strip 00:00: daily [place] [facility] ONETOUCH 2014-0 Yes daily. 1 Unive rs ULTRA TEST 02-19 to 2 times ity of strip 00:00: daily Medical Branch ONETOUCH 2014-0 Yes daily. 1 Unive rs ULTRA TEST 02-19 to 2 times ity of strip 00:00: daily Medical Branch metoprolol Yes 50mg Take 50 mg U nivers succinate 9-14 by mouth ity of XL (TOPROL 00:00: daily. [place] XL) 50 mg Medical 24 hr Branch tablet metoprolol Yes 50mg Take 50 mg U nivers succinate 9-14 by mouth ity of XL (TOPROL 00:00: daily. [place] XL) 50 mg Medical 24 hr Branch tablet metoprolol Yes 50mg Take 50 mg U nivers succinate 9-14 by mouth ity of XL (TOPROL 00:00: daily. [place] XL) 50 mg Medical 24 hr Branch tablet metoprolol Yes 50mg Take 50 mg U nivers succinate 9-14 by mouth ity of XL (TOPROL 00:00: daily. [place] XL) 50 mg Medical 24 hr Branch tablet metoprolol 2015-0 Yes 50mg Take 50 mg U nivers succinate 9-14 by mouth ity of XL (TOPROL 00:00: daily. [place] XL) 50 mg 00 Medical 24 hr Branch tablet metoprolol 2014-0 Yes 50mg Take 50 mg U nivers succinate 9-14 by mouth ity of XL (TOPROL 00:00: daily. [place] XL) 50 mg 00 Medical 24 hr Branch tablet metoprolol 0 Yes 50mg Take 50 mg U nivers succinate 9-14 by mouth ity of XL (TOPROL 00:00: daily. [place] XL) 50 mg 00 Medical 24 hr Branch tablet metoprolol 0 Yes 50mg Take 50 mg U nivers succinate 9-14 by mouth ity of XL (TOPROL 00:00: daily. [place] XL) 50 mg 00 Medical 24 hr Branch tablet metoprolol Yes 50mg Take 50 mg U nivers succinate 9-14 by mouth ity of XL (TOPROL 00:00: daily. [place] XL) 50 mg 00 Medical 24 hr Branch tablet metoprolol Yes 50mg Take 50 mg U nivers succinate 9-14 by mouth ity of XL (TOPROL 00:00: daily. [place] XL) 50 mg 00 Medical 24 hr Branch tablet metoprolol Yes 50mg Take 50 mg U nivers succinate 9-14 by mouth ity of XL (TOPROL 00:00: daily. [place] XL) 50 mg 00 Medical 24 hr Branch tablet metoprolol 0 Yes 50mg Take 50 mg U nivers succinate 9-14 by mouth ity of XL (TOPROL 00:00: daily. [place] XL) 50 mg 00 Medical 24 hr Branch tablet metoprolol 0 Yes 50mg Take 50 mg U nivers succinate 9-14 by mouth ity of XL (TOPROL 00:00: daily. [place] XL) 50 mg 00 Medical 24 hr Branch tablet metoprolol 0 Yes 50mg Take 50 mg U nivers succinate 9-14 by mouth ity of XL (TOPROL 00:00: daily. [place] XL) 50 mg 00 Medical 24 hr Branch tablet metoprolol 0 Yes 50mg Take 50 mg U nivers succinate 9-14 by mouth ity of XL (TOPROL 00:00: daily. [place] XL) 50 mg 00 Medical 24 hr Branch tablet metoprolol 2015-0 Yes 50mg Take 50 mg U nivers succinate 9-14 by mouth ity of XL (TOPROL 00:00: daily. [place] XL) 50 mg 00 Medical 24 hr Branch tablet metoprolol 2014-0 Yes 50mg Take 50 mg U nivers succinate 9-14 by mouth ity of XL (TOPROL 00:00: daily. [place] XL) 50 mg 00 Medical 24 hr Branch tablet metoprolol 0 Yes 50mg Take 50 mg U nivers succinate 9-14 by mouth ity of XL (TOPROL 00:00: daily. [place] XL) 50 mg 00 Medical 24 hr Branch tablet metoprolol 0 Yes 50mg Take 50 mg U nivers succinate 9-14 by mouth ity of XL (TOPROL 00:00: daily. [place] XL) 50 mg 00 Medical 24 hr Branch tablet metoprolol 0 Yes 50mg Take 50 mg U nivers succinate 9-14 by mouth ity of XL (TOPROL 00:00: daily. [place] XL) 50 mg 00 Medical 24 hr Branch tablet metoprolol Yes 50mg Take 50 mg U nivers succinate 9-14 by mouth ity of XL (TOPROL 00:00: daily. [place] XL) 50 mg 00 Medical 24 hr Branch tablet metoprolol 0 Yes 50mg Take 50 mg U nivers succinate 9-14 by mouth ity of XL (TOPROL 00:00: daily. [place] XL) 50 mg 00 Medical 24 hr Branch tablet metoprolol 0 Yes 50mg Take 50 mg U nivers succinate 9-14 by mouth ity of XL (TOPROL 00:00: daily. [place] XL) 50 mg 00 Medical 24 hr Branch tablet metoprolol 0 Yes 50mg Take 50 mg U nivers succinate 9-14 by mouth ity of XL (TOPROL 00:00: daily. [place] XL) 50 mg 00 Medical 24 hr Branch tablet BD Yes 100U inject 100 [facility] ULTRAFINE 8-10 Units ity of III MINI 00:00: [place] PEN 31 x 00 skin. Pen Medica l 3/16 " Ndle [facility] UF Br anch Mini 31X3/16 inch BD 2014-0 Yes 100U inject 100 [facility] ULTRAFINE 8-10 Units ity of III MINI 00:00: [place] PEN 31 x 00 skin. Pen Medica l 3/16 " Ndle [facility] UF Br anch Mini 31X3/16 inch BD Yes 100U inject 100 [facility] ULTRAFINE 8-10 Units ity of III MINI 00:00: [place] PEN 31 x 00 skin. Pen Medica l 3/16 " Ndle [facility] UF Shaan hendrix Mini 31X3/16 inch BD Yes 100U inject 100 [facility] ULTRAFINE 8-10 Units ity of III MINI 00:00: [place] PEN 31 x 00 skin. Pen Medica l 316 " Ndle Arco UF Shaan hendrix Mini 31X3/16 inch BD Yes 100U inject 100 [facility] ULTRAFINE 8-10 Units ity of III MINI 00:00: [place] PEN 31 x 00 skin. Pen Medica l 16 " Ndle Arco WILFREDO hendrix Mini 31X3/16 inch BD Yes 100U inject 100 [facility] ULTRAFINE 8-10 Units ity of III MINI 00:00: [place] PEN 31 x 00 skin. Pen Medica l 16 " Ndle [facility] WILFREDO hendrix Mini 31X3/16 inch BD Yes 100U inject 100 [facility] ULTRAFINE 8-10 Units ity of III MINI 00:00: [place] PEN 31 x 00 skin. Pen Medica l 16 " Ndle [facility] WILFREDO hendrix Mini 31X3/16 inch BD Yes 100U inject 100 [facility] ULTRAFINE 8-10 Units ity of III MINI 00:00: [place] PEN 31 x 00 skin. Pen Medica l 16 " Ndle [facility] WILFREDO hendrix Mini 31X3/16 inch BD Yes 100U inject 100 [facility] ULTRAFINE 8-10 Units ity of III MINI 00:00: [place] PEN 31 x 00 skin. Pen Medica l 16 " Ndle [facility] UF Shaan hendrix Mini 31X3/16 inch BD 2020- No 100U inject 100 Univer s ULTRAFINE 8-10 01-06 Units ity of III MINI 00:00: 00:00 under the [place] PEN 31 x 00 :00 skin. Pen Medica l 3/16 " Ndle [facility] UF Shaan hendrix Mini 31X3/16 inch BD 2020- No 100U inject 100 Univer s ULTRAFINE 8-10 01-06 Units ity of III MINI 00:00: 00:00 under the [place] PEN 31 x 00 :00 skin. Pen Medica l 3/16 " [facility] UF Shaan hendrix Mini 31X3/16 inch BD 2020- No 100U inject 100 Univer s ULTRAFINE 8-10 01-06 Units ity of III MINI 00:00: 00:00 under the [place] PEN 31 x 00 :00 skin. Pen Medica l 3/16 " Ndle [facility] UF Shaan hendrix Mini 31X3/16 inch BD 2020- No 100U inject 100 Univer s ULTRAFINE 8-10 01-06 Units ity of III MINI 00:00: 00:00 under the [place] PEN 31 x 00 :00 skin. Pen Medica l 3/16 " Ndle [facility] UF Shaan hendrix Mini 31X3/16 inch LANTUS Yes 100mL inject 100 Univ ers SOLOSTAR 8-07 mL under ity of 100 unit/mL 00:00: the skin [place] (3 mL) InPn 00 daily. Medica l Branch NOVOLOG Yes inject Univers FLEXPEN 100 8-07 under the ity of unit/mL 00:00: skin [place] injection 00 daily. Medical Branch LANTUS Yes 100mL inject 100 Univ ers SOLOSTAR 8-07 mL under ity of 100 unit/mL 00:00: the skin [place] (3 mL) InPn 00 daily. Medica l Branch NOVOLOG Yes inject Univers FLEXPEN 100 8-07 under the ity of unit/mL 00:00: skin [place] injection 00 daily. Medical Branch NOVOLOG Yes inject Univers FLEXPEN 100 8-07 under the ity of unit/mL 00:00: skin [place] injection 00 daily. Medical Branch LANTUS Yes 100mL inject 100 Univ ers SOLOSTAR 8-07 mL under ity of 100 unit/mL 00:00: the skin [place] (3 mL) InPn 00 daily. Medica l Branch NOVOLOG Yes inject Univers FLEXPEN 100 8-07 under the ity of unit/mL 00:00: skin [place] injection 00 daily. Medical Branch NOVOLOG Yes inject Univers FLEXPEN 100 8-07 under the ity of unit/mL 00:00: skin [place] injection 00 daily. Medical Branch NOVOLOG 2015-0 Yes inject Univers FLEXPEN 100 8-07 under the ity of unit/mL 00:00: skin [place] injection 00 daily. Medical Branch NOVOLOG 2014-0 Yes inject Univers FLEXPEN 100 8-07 under the ity of unit/mL 00:00: skin [place] injection 00 daily. Medical Branch NOVOLOG 2014-0 Yes inject Univers FLEXPEN 100 8-07 under the ity of unit/mL 00:00: skin [place] injection 00 daily. Medical Branch NOVOLOG 2014-0 Yes inject Univers FLEXPEN 100 8-07 under the ity of unit/mL 00:00: skin [place] injection 00 daily. Medical Branch NOVOLOG 2014-0 Yes inject Univers FLEXPEN 100 8-07 under the ity of unit/mL 00:00: skin [place] injection 00 daily. Medical Branch NOVOLOG 2014-0 Yes inject Univers FLEXPEN 100 8-07 under the ity of unit/mL 00:00: skin [place] injection 00 daily. Medical Branch NOVOLOG 0 Yes inject Univers FLEXPEN 100 8-07 under the ity of unit/mL 00:00: skin [place] injection 00 daily. Medical Branch LANTUS 0 Yes 100mL inject 100 Univ ers SOLOSTAR 8-07 mL under ity of 100 unit/mL 00:00: the skin [place] (3 mL) InPn 00 daily. Medica l Branch NOVOLOG 2014-0 Yes inject Univers FLEXPEN 100 8-07 under the ity of unit/mL 00:00: skin [place] injection 00 daily. Medical Branch NOVOLOG 0 Yes inject Univers FLEXPEN 100 8-07 under the ity of unit/mL 00:00: skin [place] injection 00 daily. Medical Branch NOVOLOG 2014-0 Yes inject Univers FLEXPEN 100 8-07 under the ity of unit/mL 00:00: skin [place] injection 00 daily. Medical Branch NOVOLOG 2014-0 Yes inject Univers FLEXPEN 100 8-07 under the ity of unit/mL 00:00: skin [place] injection 00 daily. Medical Branch NOVOLOG 2014-0 Yes inject Univers FLEXPEN 100 8-07 under the ity of unit/mL 00:00: skin [place] injection 00 daily. [facility] NOVOLOG 2014-0 Yes inject [facility] FLEXPEN 100 8-07 under the ity of unit/mL 00:00: skin [place] injection 00 daily. [facility] NOVOLOG 2014-0 Yes inject [facility] FLEXPEN 100 8-07 under the ity of unit/mL 00:00: skin [place] injection 00 daily. [facility] LANTUS Yes 100mL inject 100 Univ ers SOLOSTAR 8-07 mL under ity of 100 unit/mL 00:00: [place] (3 mL[place] InPn 00 daily. [facility] l Branch NOVOLOG Yes inject [facility] FLEXPEN 100 8-07 under the ity of unit/mL 00:00: skin [place] injection 00 daily. [facility] LANTUS Yes 100mL inject 100 Univ ers SOLOSTAR 8-07 mL under ity of 100 unit/mL 00:00: [place] (3 mL) InPn 00 daily. [facility] l Branch NOVOLOG Yes inject [facility] FLEXPEN 100 8-07 under the ity of unit/mL 00:00: skin [place] injection 00 daily. [facility] LANTUS Yes 100mL inject 100 Univ ers SOLOSTAR 8-07 mL under ity of 100 unit/mL 00:00: [place] (3 mL) InPn 00 daily. [facility] l Branch NOVOLOG Yes inject [facility] FLEXPEN 100 8-07 under the ity of unit/mL 00:00: skin [place] injection 00 daily. [facility] LANTUS Yes 100mL inject 100 Univ ers SOLOSTAR 8-07 mL under ity of 100 unit/mL 00:00: [place] (3 mL) InPn 00 daily. [facility] Branch NOVOLOG Yes inject Univers FLEXPEN 100 8-07 under the ity of unit/mL 00:00: skin [place] injection 00 daily. [facility] LANTUS Yes 100mL inject 100 Univ ers SOLOSTAR 8-07 mL under ity of 100 unit/mL 00:00: [place] (3 mL) [facility] FLEXPEN 100 8-07 under the ity of unit/mL 00:00: skin [place] injection 00 daily. [facility] Branch LANTUS 2020- No 100mL inject 100 Uni vers SOLOSTAR 8-07 01-06 mL under ity of 100 unit/mL 00:00: 00:00 [place] (3 mL) InPn 00 :00 daily. Medica l Branch LANTUS 2020- No 100mL inject 100 Uni vers SOLOSTAR 8 01-06 mL under ity of 100 unit/mL 00:00: 00:00 [place] (3 mL) InPn 00 :00 daily. Medica l Branch LANTUS 2020- No 100mL inject 100 Uni vers SOLOSTAR 8 01-06 mL under ity of 100 unit/mL 00:00: 00:00 [place] (3 mL) InPn 00 :00 daily. Medica l Branch LANTUS 2020- No 100mL inject 100 Uni vers SOLOSTAR 8-06 mL under ity of 100 unit/mL 00:00: 00:00 the [place] (3 mL) InPn 00 :00 daily. Medica l Branch lisinopril Yes 10mg Take 10 mg U nivers (PRINIVIL,Z 8-06 by mouth ity of ESTRIL) 10 00:00: daily. [place] mg tablet 00 [facility] lisinopril 0 Yes 10mg Take 10 mg U nivers (PRINIVIL,Z 8-06 by mouth ity of ESTRIL) 10 00:00: daily. [place] mg tablet 00 [facility] lisinopril 0 Yes 10mg Take 10 mg U nivers (PRINIVIL,Z 8-06 by mouth ity of ESTRIL) 10 00:00: daily. [place] mg tablet 00 [facility] lisinopril 0 Yes 10mg Take 10 mg U nivers (PRINIVIL,Z 8-06 by mouth ity of ESTRIL) 10 00:00: daily. [place] mg tablet 00 [facility] lisinopril 0 Yes 10mg Take 10 mg U nivers (PRINIVIL,Z 8-06 by mouth ity of ESTRIL) 10 00:00: daily. [place] mg tablet 00 [facility] lisinopril 2015-0 Yes 10mg Take 10 mg U nivers (PRINIVIL,Z 8-06 by mouth ity of ESTRIL) 10 00:00: daily. [place] mg tablet 00 [facility] lisinopril 0 Yes 10mg Take 10 mg U nivers (PRINIVIL,Z 8-06 by mouth ity of ESTRIL) 10 00:00: daily. [place] mg tablet 00 [facility] lisinopril 2015-0 Yes 10mg Take 10 mg U nivers (PRINIVIL,Z 8-06 by mouth ity of ESTRIL) 10 00:00: daily. [place] mg tablet 00 [facility] lisinopril 2015-0 Yes 10mg Take 10 mg U nivers (PRINIVIL,Z 8-06 by mouth ity of ESTRIL) 10 00:00: daily. [place] mg tablet 00 [facility] lisinopril 2015-0 Yes 10mg Take 10 mg U nivers (PRINIVIL,Z 8-06 by mouth ity of ESTRIL) 10 00:00: daily. [place] mg tablet 00 [facility] lisinopril 2014-0 Yes 10mg Take 10 mg U nivers (PRINIVIL,Z 8-06 by mouth ity of ESTRIL) 10 00:00: daily. [place] mg tablet 00 [facility] lisinopril 2014-0 Yes 10mg Take 10 mg U nivers (PRINIVIL,Z 8-06 by mouth ity of ESTRIL) 10 00:00: daily. [place] mg tablet 00 [facility] lisinopril 2014-0 Yes 10mg Take 10 mg U nivers (PRINIVIL,Z 8-06 by mouth ity of ESTRIL) 10 00:00: daily. [place] mg tablet 00 [facility] lisinopril 2014-0 Yes 10mg Take 10 mg U nivers (PRINIVIL,Z 8-06 by mouth ity of ESTRIL) 10 00:00: daily. [place] mg tablet 00 [facility] lisinopril 2014-0 Yes 10mg Take 10 mg U nivers (PRINIVIL,Z 8-06 by mouth ity of ESTRIL) 10 00:00: daily. [place] mg tablet 00 [facility] lisinopril 2014-0 Yes 10mg Take 10 mg U nivers (PRINIVIL,Z 8-06 by mouth ity of ESTRIL) 10 00:00: daily. [place] mg tablet 00 [facility] lisinopril 2015-0 Yes 10mg Take 10 mg U nivers (PRINIVIL,Z 8-06 by mouth ity of ESTRIL) 10 00:00: daily. [place] mg tablet 00 [facility] lisinopril 2015-0 Yes 10mg Take 10 mg U nivers (PRINIVIL,Z 8-06 by mouth ity of ESTRIL) 10 00:00: daily. [place] mg tablet 00 [facility] lisinopril 2014-0 Yes 10mg Take 10 mg U nivers (PRINIVIL,Z 8-06 by mouth ity of ESTRIL) 10 00:00: daily. [place] mg tablet 00 [facility] lisinopril 2014-0 Yes 10mg Take 10 mg U nivers (PRINIVIL,Z 8-06 by mouth ity of ESTRIL) 10 00:00: daily. [place] mg tablet 00 [facility] lisinopril 2014-0 Yes 10mg Take 10 mg U nivers (PRINIVIL,Z 8-06 by mouth ity of ESTRIL) 10 00:00: daily. [place] mg tablet 00 [facility] lisinopril 2014-0 Yes 10mg Take 10 mg U nivers (PRINIVIL,Z 8-06 by mouth ity of ESTRIL) 10 00:00: daily. [place] mg tablet 00 [facility] lisinopril 2014-0 Yes 10mg Take 10 mg U nivers (PRINIVIL,Z 8-06 by mouth ity of ESTRIL) 10 00:00: daily. [place] mg tablet 00 [facility] lisinopril 0 Yes 10mg Take 10 mg U nivers (PRINIVIL,Z 8-06 by mouth ity of ESTRIL) 10 00:00: daily. [place] mg tablet 00 [facility] medroxyPROG 2014-0 Yes 10mg Take 10 mg [facility] ESTERone 7-22 by mouth ity of (CYCRIN) 10 00:[place] 00 [facility] medroxyPROG 2014-0 Yes 10mg Take 10 mg [facility] ESTERone 7-22 by mouth ity of (CYCRIN) 10 00:[place] 00 [facility] medroxyPROG 2014-0 Yes 10mg Take 10 mg [facility] ESTERone 7-22 by mouth ity of (CYCRIN) 10 00:[place]: [place] 00 [facility] medroxyPROG 2014-0 Yes 10mg Take 10 mg [facility] ESTERone 7-22 by mouth ity of (CYCRIN) 10 00:[place] 00 [facility] medroxyPROG 2014-0 Yes 10mg Take 10 mg [facility] ESTERone 7-22 by mouth ity of (CYCRIN) 10 00:[place]: [place] 00 [facility] medroxyPROG Yes 10mg Take 10 mg [facility] ESTERone 7-22 by mouth ity of (CYCRIN) 10 00:[place] [facility] medroxyPROG Yes 10mg Take 10 mg [facility] ESTERone 7-22 by mouth ity of (CYCRIN) 10 00:[place] [facility] medroxyPROG Yes 10mg Take 10 mg [facility] ESTERone 7-22 by mouth ity of (CYCRIN) 10 00:[place] [facility] medroxyPROG Yes 10mg Take 10 mg [facility] ESTERone 7-22 by mouth ity of (CYCRIN) 10 00:[place] [facility] medroxyPROG 202- No 10mg Take 10 mg [facility] ESTERone 7-22 06-05 by mouth ity of (CYCRIN) 10 00:00: 00:00 daily. [place] tablet 00 :00 [facility] medroxyPROG 2020- No 10mg Take 10 mg Univers ESTERone 7-22 06-05 by mouth ity of (CYCRIN) 10 00:00: 00:00 daily. [place] mg tablet 00 :00 [facility] medroxyPROG 2020- No 10mg Take 10 mg Univers ESTERone 7-22 06-05 by mouth ity of (CYCRIN) 10 00:00: 00:00 daily. [place] mg tablet 00 :00 [facility] medroxyPROG 2020- No 10mg Take 10 mg [facility] ESTERone 7-22 06-05 by mouth ity of (CYCRIN) 10 00:00: 00:00 daily. [place] mg tablet 00 :00 [facility] omeprazole Yes [facility] (PRILOSEC) 7 [facility] 40 MG 00:00: of capsule Medicin e omeprazole Yes [facility] (PRILOSEC) 7 [place] 40 MG 00:00: of capsule 00 Medicin e omeprazole Yes [facility] (PRILOSEC) 7 [facility] 40 MG 00:00: of capsule Medicin e omeprazole Yes [facility] (PRILOSEC) 7 [employer] 40 MG 00:00: of capsule 00 Medicin e omeprazole Yes [facility] (PRILOSEC) 11-28 [facility] 40 MG 00:00: of capsule 00 Medicin e omeprazole 2022- No [facility] (PRILOSEC) 11-28 [facility] 40 MG 00:00: 00:00 of capsule 00 :00 Medicin e Immunizations Ordered Filled Immunization Date Status Comments Sour e Immunization Name Name Influenza 2020-12-29 Completed [facility] of Quadrivalent 3YRS+ 00:00:00 Medici ne Influenza 2020-12-29 Completed [facility] of Quadrivalent 3YRS+ 00:00:00 Medici ne Influenza 2020-12-29 Completed [facility] of Quadrivalent 3YRS+ 00:00:00 Medici ne Influenza 2020-12-29 Completed [facility] of Quadrivalent 3YRS+ 00:00:00 Medici ne Influenza 2020-12-29 Completed [facility] of Quadrivalent 3YRS+ 00:00:00 Medici ne Influenza 2020-12-29 Completed [facility] of Quadrivalent 3YRS+ 00:00:00 Medici ne Influenza 2020-12-29 Completed [facility] of Quadrivalent 3YRS+ 00:00:00 Medici ne Influenza 2020-12-29 Completed [facility] of Quadrivalent 3YRS+ 00:00:00 Medici ne Influenza 2020-12-29 Completed [facility] of Quadrivalent 3YRS+ 00:00:00 Medici ne Influenza 2020-12-29 Completed [facility] of Quadrivalent 3YRS+ 00:00:00 Medici ne Influenza 2020-12-29 Completed [facility] of Quadrivalent 3YRS+ 00:00:00 Medici ne Influenza 2020-12-29 Completed [facility] of Quadrivalent 3YRS+ 00:00:00 Medici ne Influenza 2020-12-29 Completed [facility] of Quadrivalent 3YRS+ 00:00:00 Medici ne Influenza 2020-12-29 Completed [facility] of Quadrivalent 3YRS+ 00:00:00 Medici ne Influenza 2020-12-29 Completed [facility] of Quadrivalent 3YRS+ 00:00:00 Medici ne Influenza 2020-12-29 Completed [facility] of Quadrivalent 3YRS+ 00:00:00 Medici ne Influenza 2020-12-29 Completed [facility] of Quadrivalent 3YRS+ 00:00:00 Medici ne Moderna SARS-CoV-2 2020-09-04 Completed [facility] Vaccination 00:00:00 Medicine Moderna SARS-CoV-2 2020-09-04 Completed [facility] Vaccination 00:00:00 Medicine Moderna SARS-CoV-2 2020-09-04 Completed [facility] Vaccination 00:00:00 Medicine Moderna SARS-CoV-2 2020-09-04 Completed [facility] Vaccination 00:00:00 Medicine Moderna SARS-CoV-2 2020-09-04 Completed [facility] Vaccination 00:00:00 Medicine Moderna SARS-CoV-2 2020-09-04 Completed [facility] Vaccination 00:00:00 Medicine Moderna SARS-CoV-2 2020-09-04 Completed [facility] Vaccination 00:00:00 Medicine Moderna SARS-CoV-2 2020-09-04 Completed [facility] Vaccination 00:00:00 Medicine Moderna SARS-CoV-2 2020-09-04 Completed [facility] Vaccination 00:00:00 Medicine Moderna SARS-CoV-2 2020-09-04 Completed [facility] Vaccination 00:00:00 Medicine Moderna SARS-CoV-2 2020-09-04 Completed [facility] Vaccination 00:00:00 Medicine Moderna SARS-CoV-2 2020-09-04 Completed [facility] Vaccination 00:00:00 Medicine Moderna SARS-CoV-2 2020-09-04 Completed [facility] Vaccination 00:00:00 Medicine Moderna SARS-CoV-2 2020-09-04 Completed [facility] Vaccination 00:00:00 Medicine Moderna SARS-CoV-2 2020-09-04 Completed [facility] Vaccination 00:00:00 Medicine Moderna SARS-CoV-2 2020-09-04 Completed [facility] Vaccination 00:00:00 Medicine Moderna .5mL 2020-09-[address] [facility] ge of SARS-CoV-2 00:00:00 Medicine Vaccination Moderna SARS-CoV-2 2020-06-29 Completed [facility] Vaccination 00:00:00 Medicine Moderna SARS-CoV-2 2020-06-29 Completed [facility] Vaccination 00:00:00 Medicine Moderna SARS-CoV-2 2020-06-29 Completed [facility] Vaccination 00:00:00 Medicine Moderna SARS-CoV-2 2020-06-29 Completed [facility] Vaccination 00:00:00 Medicine Moderna SARS-CoV-2 2020-06-29 Completed [facility] Vaccination 00:00:00 Medicine Moderna SARS-CoV-2 2020-06-29 Completed [facility] Vaccination 00:00:00 Medicine Moderna SARS-CoV-2 2020-06-29 Completed [facility] Vaccination 00:00:00 Medicine Moderna SARS-CoV-2 2020-06-29 Completed [facility] Vaccination 00:00:00 Medicine Moderna SARS-CoV-2 2020-06-29 Completed [facility] Vaccination 00:00:00 Medicine Moderna SARS-CoV-2 2020-06-29 Completed [facility] Vaccination 00:00:00 Medicine Moderna SARS-CoV-2 2020-06-29 Completed [facility] Vaccination 00:00:00 Medicine Moderna SARS-CoV-2 2020-06-29 Completed [facility] Vaccination 00:00:00 Medicine Moderna SARS-CoV-2 2020-06-29 Completed [facility] Vaccination 00:00:00 Medicine Moderna SARS-CoV-2 2020-06-29 Completed [facility] Vaccination 00:00:00 Medicine Moderna SARS-CoV-2 2020-06-29 Completed [facility] Vaccination 00:00:00 Medicine Moderna SARS-CoV-2 2020-06-29 Completed [facility] Vaccination 00:00:00 Medicine Moderna .5mL 2020-06-29 Completed [facility] of SARS-CoV-2 00:00:00 Medicine Vaccination Tdap 2020-06-05 Completed [facility] 00:00:00 Medicine Tdap 2020-06-05 Completed [facility] of 00:00:00 Medicine Tdap 2020-06-05 Completed [facility] of 00:00:00 Medicine Tdap 2020-06-05 Completed [facility] 00:00:00 Medicine Tdap 2020-06-05 Completed [facility] 00:00:00 Medicine Tdap 2020-06-05 Completed [employer] of 00:00:00 Medicine Tdap 2020-06-05 Completed [facility] of 00:00:00 Medicine Tdap 2020-06-05 Completed [facility] of 00:00:00 Medicine Tdap 2020-06-05 Completed [facility] of 00:00:00 Medicine Tdap 2020-06-05 Completed [facility] of 00:00:00 Medicine Tdap 2020-06-05 Completed [facility] of 00:00:00 Medicine Tdap 2020-06-05 Completed [facility] 00:00:00 Medicine Tdap 2020-06-05 Completed [facility] of 00:00:00 Medicine Tdap 2020-06-05 Completed [facility] 00:00:00 Medicine Tdap 2020-06-05 Completed [facility] 00:00:00 Medicine Tdap 2020-06-05 Completed [facility] 00:00:00 Medicine Tdap 2020-06-05 Completed [facility] 00:00:00 Medicine TDAP 2020-06-05 Completed [facility] of 00:00:00 [facility] TDAP 2020-06-05 Completed University of 00:00:00 [facility] TDAP 2020-06-05 Completed University of 00:00:00 [facility] TDAP 2020-06-05 Completed University of 00:00:00 [facility] TDAP 2020-06-05 Completed University of 00:00:00 [facility] TDAP 2020-06-05 Completed University of 00:00:00 [facility] TDAP 2020-06-05 Completed University of 00:00:00 [facility] TDAP 2020-06-05 Completed University of 00:00:00 [facility] TDAP 2020-06-05 Completed University of 00:00:00 [facility] TDAP 2020-06-05 Completed University of 00:00:00 [facility] TDAP 2020-06-05 Completed University of 00:00:00 [facility] TDAP 2020-06-05 Completed University of 00:00:00 [facility] TDAP 2020-06-05 Completed University of 00:00:00 [facility] TDAP 2020-06-05 Completed University of 00:00:00 [facility] TDAP 2020-06-05 Completed University of 00:00:00 [facility] Vital Signs Vital Name Observation Time Observation Value Comments Source Systolic blood 2022-03-24 18:24:00 129 mm[Hg] [facility] pressure Medicine Diastolic blood 2022-03-24 18:24:00 81 mm[Hg] [facility] Medicine Heart rate 2022-03-24 18:24:00 74 /min [facility] Body temperature 2022-03-24 18:24:00 36.11 [facility] Respiratory rate 2022-03-24 18:24:00 18 /min [facility] Body height 2022-03-24 18:24:00 165.1 cm [facility] Body weight 2022-03-24 18:24:00 [facility] BMI 2022-03-24 18:24:00 27.12 kg/m2 [facility] Systolic blood 2022-01-20 18:55:00 118 mm[Hg] [facility] pressure Medicine Diastolic blood 2022-01-20 18:55:00 81 mm[Hg] [facility] Medicine Heart rate 2022-01-20 18:55:00 70 /min [facility] Medicine Body temperature 2022-01-20 18:55:00 36.67 [facility] Body height 2022-01-20 18:55:00 165.1 cm [facility] Body weight 2022-01-20 18:55:00 [facility]308 [facility] BMI 2022-01-20 18:55:00 25.79 [facility]2 [facility] Systolic blood 2021-12-02 15:35:00 112 mm[Hg] [facility] pressure Medicine Diastolic blood 2021-12-02 15:35:00 78 mm[Hg] [facility] of pressure Medicine Heart rate 2021-12-02 15:35:00 85 /min [facility] Medicine Systolic blood 2021-11-25 19:58:00 120 mm[Hg] [facility] pressure Medicine Diastolic blood 2021-11-25 19:58:00 81 mm[Hg] [facility] pressure Medicine Heart rate 2021-11-25 19:58:00 88 /min [facility] of Medicine Body temperature 2021-11-25 19:58:00 36.11 [facility] Body height 2021-11-25 19:58:00 165.1 cm [facility] of Medicine Body weight 2021-11-25 19:58:00 68.947 kg [facility] of Medicine BMI 2021-11-25 19:58:00 25.29 kg/m2 [facility] of Medicine Systolic blood 2021-11-25 20:00:00 120 mm[Hg] [facility] pressure Medicine Diastolic blood 2021-11-25 20:00:00 81 mm[Hg] [facility] Medicine Heart rate 2021-11-25 20:00:00 88 /min [facility] Medicine Body temperature 2021-11-25 20:00:00 36.61 [facility] Body height 2021-11-25 20:00:00 165.1 cm [facility] Medicine Body weight 2021-11-25 20:00:00 68.947 kg [facility] Medicine BMI 2021-11-25 20:00:00 25.29 kg/m2 [facility] Medicine Systolic blood 2021-11-18 19:48:00 120 mm[Hg] [facility] Medicine Diastolic blood 2021-11-18 19:48:00 77 mm[Hg] [facility] Medicine Heart rate 2021-11-18 19:48:00 71 /min [facility] Medicine Body temperature 2021-11-18 19:48:00 36.72 [facility] Respiratory rate 2021-11-18 19:48:00 20 /min [facility] Body height 2021-11-18 19:48:00 165.1 cm [facility] Medicine Body weight 2021-11-18 19:48:00 68.811 kg [facility] Medicine BMI 2021-11-18 19:48:00 25.24 kg/m2 [facility] of Medicine Systolic blood 2021-11-04 20:32:00 128 mm[Hg] [facility] pressure Medicine Diastolic blood 2021-11-04 20:32:00 90 mm[Hg] [facility] Medicine Heart rate 2021-11-04 20:32:00 106 /min [facility] Medicine Body temperature 2021-11-04 20:32:00 36.89 [facility] Body height 2021-11-04 20:32:00 165.1 cm [facility] of Medicine Body weight 2021-11-04 20:32:00 71.215 kg [facility] Medicine BMI 2021-11-04 20:32:00 26.13 kg/m2 [facility] Medicine Systolic blood 2021-09-23 19:31:00 133 mm[Hg] [facility] pressure Medicine Diastolic blood 2021-09-23 19:31:00 90 mm[Hg] [facility] Medicine Heart rate 2021-09-23 19:31:00 74 /min [facility] Medicine Body height 2021-09-23 19:31:00 165.1 cm [facility] Medicine Body weight 2021-09-23 19:31:00 71.215 kg [facility] Medicine BMI 2021-09-23 19:31:00 26.13 kg/m2 [facility] Medicine Systolic blood 2021-09-16 19:12:00 118 mm[Hg] [facility] pressure Medicine Diastolic blood 2021-09-16 19:12:00 81 mm[Hg] [facility] Medicine Heart rate 2021-09-16 19:12:00 90 /min [facility] Medicine Body temperature 2021-09-16 19:12:00 36.72 [facility] Respiratory rate 2021-09-16 19:12:00 18 /min [facility] Systolic blood 2021-06-27 17:25:00 124 mm[Hg] [facility] pressure Medicine Diastolic blood 2021-06-27 17:25:00 86 mm[Hg] [facility] Medicine Heart rate 2021-06-27 17:25:00 78 /min [facility] Medicine Respiratory rate 2021-06-27 17:25:00 18 /min [facility] Body height 2021-06-27 17:25:00 165.1 cm [facility] Medicine Body weight 2021-06-27 17:25:00 72.576 kg [facility] Medicine BMI 2021-06-27 17:25:00 26.63 kg/m2 [facility] Systolic blood 2021-06-27 16:26:00 112 mm[Hg] [facility] of pressure Medicine Diastolic blood 2021-06-27 16:26:00 80 mm[Hg] [facility] Medicine Heart rate 2021-06-27 16:26:00 111 /min [facility] Medicine Body temperature 2021-06-27 16:26:00 36.56 [facility] Respiratory rate 2021-06-27 16:26:00 18 /min [facility] Body height 2021-06-27 16:26:00 165.1 cm [facility] Body weight 2021-06-27 16:26:00 72.576 kg [facility] BMI 2021-06-27 16:26:00 26.63 [facility] Oxygen saturation in 2021-06-27 16:26:00 97 /min [facility] Arterial blood by [facility] Pulse oximetry Systolic blood 2021-05-02 19:54:00 122 mm[Hg] [facility] pressure Medicine Diastolic blood 2021-05-02 19:54:00 80 mm[Hg] [facility] pressure Medicine Heart rate 2021-05-02 19:54:00 75 /min [facility] Medicine Body height 2021-05-02 19:54:00 165.1 cm [facility] Medicine Body weight 2021-05-02 19:54:00 71.124 kg [facility] Medicine BMI 2021-05-02 19:54:00 26.09 kg/m2 [facility] Medicine Diastolic blood 2021-04-01 18:28:00 65 mm[Hg] [facility] of pressure Medicine Heart rate 2021-04-01 18:28:00 70 /min [facility] Medicine Body temperature 2021-04-01 18:28:00 36.11 [facility] Body height 2021-04-01 18:28:00 165.1 cm [facility] Medicine Body weight 2021-04-01 18:28:00 73.029 kg [facility] Medicine BMI 2021-04-01 18:28:00 26.79 kg/m2 [facility] Medicine Systolic blood 2021-04-01 18:28:00 101 mm[Hg] [facility] Medicine Systolic blood 2021-03-14 19:47:00 127 mm[Hg] [facility] Medicine Diastolic blood 2021-03-14 19:47:00 75 mm[Hg] [facility] Medicine Heart rate 2021-03-14 19:47:00 92 /min [facility] Respiratory rate 2021-03-14 19:47:00 18 /min [facility] Body weight 2021-03-14 19:47:00 73.029 kg [facility] Medicine BMI 2021-03-14 19:47:00 26.79 kg/m2 [facility] Medicine Systolic blood 2021-03-04 19:36:00 121 mm[Hg] [facility] Medicine Diastolic blood 2021-03-04 19:36:00 78 mm[Hg] [facility] Medicine Heart rate 2021-03-04 19:36:00 84 /min [facility] Body temperature 2021-03-04 19:36:00 36.11 Estefanía [facility] Body height 2021-03-04 19:36:00 165.1 cm [facility] Body weight 2021-03-04 19:36:00 73.392 kg [facility] BMI 2021-03-04 19:36:00 26.92 kg/m2 [facility] Systolic blood 2020-06-05 19:51:00 122 mm[Hg] Hyun dickerson [facility] Diastolic blood 2020-06-05 19:51:00 78 mm[Hg] Unive rsity [facility] Heart rate 2020-06-05 19:51:00 88 /min [facility] Body temperature 2020-06-05 19:51:00 36.78 [facility] Res[facility] rate 2020-06-05 19:51:00 18 /min [facility] Body weight 2020-06-05 19:51:00 75.751 [facility] Oxygen saturation in 2020-06-05 19:51:00 99 /min [facility] Arterial blood by [facility] Pulse oximetry [place] Systolic blood 2021-11-12 15:00:00 110 mm[Hg] [facility] Diastolic blood 2021-11-12 15:00:00 71 mm[Hg] [facility] Heart rate 2021-11-12 15:00:00 68 /min [facility] Body temperature 2021-11-12 15:00:00 36.22 Estefanía [facility] Respiratory rate 2021-11-12 15:00:00 16 /min [facility] Oxygen saturation in 2021-11-12 15:00:00 96 /min [facility] Arterial blood by Medical Ce nter Pulse oximetry Body height 2021-11-12 06:57:00 165.1 cm [facility] Body weight 2021-11-12 06:57:00 66 kg [facility] BMI 2021-11-12 06:57:00 24.21 kg/m2 [facility] HEIGHT 2021-11-05 15:34:00 165.1 cm WEIGHT 2021-11-05 15:34:00 70.308 kg Procedures Procedure Date / Time Performing Clinician Source Performed POCT-GLUCOSE METER 2021-11-12 14:23:00 Zo Gutierrez [facility] POCT-GLUCOSE METER 2021-11-12 12:02:00 Zo Gutierrez [facility] POCT-GLUCOSE METER 2021-11-12 10:49:00 Zo Gutierrez [facility] POCT-GLUCOSE METER 2021-11-12 09:53:00 [facility] TISSUE EXAM 2021-11-12 08:48:00 [facility] LUMPECTOMY, BREAST 2021-11-12 08:00:00 [facility] EXCISIONAL BIOPSY, LYMPH 2021-11-12 08:00:00 [facility] NODE, SENTINEL [facility] MASTOPEXY 2021-11-12 08:00:00 Ernie [facility] MAMMOPLASTY, REDUCTION 2021-11-12 08:00:00 Ernie [facility] POCT , URINE 2021-11-12 07:26:00 Silvio Alejo [facility] POCT-GLUCOSE METER 2021-11-12 07:03:00 [facility] NM SENTINEL NODE STUDY 2021-11-11 15:05:00 [facility] (INJECTION ONLY) [facility] ECG 12-LEAD 2021-11-10 09:59:58 Unknown, Hl7 Doctor [facility] ECG 12-LEAD 2021-11-10 09:59:58 Marcela Cano devonte [facility] ECG 12-LEAD 2021-11-10 09:59:58 Unknown, Hl7 Doctor [facility] SARS-COV2/RT-PCR ([facility] & 2021-11-10 09:54:00 [facility] REF LABS) [facility] HEMOGLOBIN 2021-11-10 09:54:00 Marcela Cano [facility] BASIC METABOLIC PANEL 2021-11-10 09:54:00 Marcela Cano [facility] MR BREAST BIOPSY RIGHT 2021-10-07 13:40:00 [facility] BREAST BILATERAL WITH 2021-08-14 08:40:00 JENA Paiz [facility] & WITHOUT IV CONTRAST [facility] FSH + LH PROFILE 2021-06-27 12:01:00 [facility] ESTRADIOL 2021-06-27 12:01:00 [facility] AMB REF TO PLASTIC SURG 2021-06-27 11:48:56 [facility] ESTRADIOL 2021-05-03 12:53:52 Lashell Sousa [facility] FSH + LH PROFILE 2021-05-03 12:53:52 Lashell Sousa, [facility] FSH + LH PROFILE 2021-04-01 14:02:00 [facility] ESTRADIOL 2021-04-01 14:02:00 [facility] AMB REF TO INFUSION 2021-03-17 10:23:04 [facility] AMB REF TO INFUSION 2021-03-14 15:13:19 [facility] CBC W/AUTO DIFF WITH 2021-03-04 16:52:00 [facility] COMPREHENSIVE METABOLIC 2021-03-04 16:52:00 [facility] INSURANCE CORRESPONDENCE 2020-11-28 05:01:00 Doctor Unassigned, [facility] TDAP VACCINE, >11 YRS, IM 2020-06-05 20:21:24 Zachery Hanna [facility] ASSIGNMENT OF BENEFITS 2020-06-05 19:33:23 Doctor Unassigned, [facility] Name Medical Branch Plan of Care Planned Activity Planned Date Details Comments Source Future Scheduled 2030-06-05 DTAP/TDAP/TD VACCINES [facility] Test 00:00:00 (2 - Td or Tdap) [code Medic al Center = DTAP/TDAP/TD VACCINES (2 - Td or Tdap)] Future Scheduled 2030-06-05 DTAP/TDAP/TD VACCINES [facility] Test 00:00:00 (2 - Td or Tdap) [code Medic al Center = DTAP/TDAP/TD VACCINES (2 - Td or Tdap)] Future Scheduled 2030-06-05 DTAP/TDAP/TD VACCINES [facility] Test 00:00:00 (2 - Td or Tdap) [code Medic al Center = DTAP/TDAP/TD VACCINES (2 - Td or Tdap)] Future Scheduled 2022-03-24 Pneumococcal Combined [facility] Test 14:19:34 (1 - PCV) [code = of Medicin e Pneumococcal Combined (1 - PCV)] Future Scheduled 2022-03-[address] UP PLAN [facility] Test 14:19:34 [code = BMI FOLLOW UP of Med icine PLAN] Future Scheduled 2022-03-24 Hepatitis C screening [facility] Test 14:19:34 (procedure) [code = of Medic ine [id number]] Future Scheduled 2022-03-24 COVID-19 Vaccine (3 - Ba [facility] Test 14:19:34 Booster for Moderna of Medic ine series) [code = COVID-19 Vaccine (3 - Booster for Moderna series)] Future Scheduled 2022-03-24 FLU VACCINE > 6 MONTHS B [facility] Test 14:19:34 [code = FLU VACCINE > of Med icine 6 MONTHS] Future Scheduled 2022-03-24 Diabetic foot Postponed from [facility] Test 14:19:34 examination 2000 of Medicine (regime/therapy) [code (Postpone Reason: = [id number]] Other) Future Scheduled 2022-03-24 Hemoglobin A1c Postponed from [facility] Test 14:19:34 measurement 12/03/2020 of Medicine (procedure) [code = (Postpone Reason: [id number]] Other) Future Scheduled 2022-03-24 ANNUAL DIABETIC [facility] Test 14:19:34 RETINOPATHY SCREENING of Med icine [code = ANNUAL DIABETIC RETINOPATHY SCREENING] Future Scheduled 2022-03-24 Screening for [facility] Test 14:19:34 malignant neoplasm of of Med icine cervix (procedure) [code = 446948778] Future Scheduled 2022-03-24 TETANUS SHOT (ADULT) [facility] Test 14:19:34 [code = TETANUS SHOT of Medi cine (ADULT)] Future Scheduled 2022-01-29 INFLUENZA VACCINE (#1) [facility] 00:[facility]00 [code = INFLUENZA Medical Ce nter VACCINE (#1)] Future Scheduled 2022-01-29 INFLUENZA VACCINE (#1) [facility] Test 00:00:00 [code = INFLUENZA Medical Ce nter VACCINE (#1)] Future Scheduled 2022-01-29 INFLUENZA VACCINE (#1) [facility] 00:00:00 [code = INFLUENZA Medical Ce nter VACCINE (#1)] Future Scheduled 2022-01-28 HEPATITIS B [facility]ACCINES [facility] 12:50:29 (1 of 3 - 3-dose Hospital series) [code = HEPATITIS B VACCINES (1 of 3 - 3-dose series)] Future Scheduled 2022-01-28 COVID-19 VACCINE (#1) [facility] 12:50:29 [code = COVID-19 Hospital VACCINE (#1)] Future Scheduled 2022-01-28 Screening for [facility] Test 12:50:29 malignant neoplasm of Hospit al cervix (procedure) [code = 002257775] Future Scheduled 2022-01-28 INFLUENZA VACCINE Method [facility] Test 12:50:29 [code = INFLUENZA Hospital VACCINE] Future Scheduled 2022-01-28 INFLUENZA VACCINE Method [facility] Test 12:50:29 [code = INFLUENZA Hospital VACCINE] Future Scheduled 2022-01-28 HEPATITIS B VACCINES [facility] 12:50:29 (1 of 3 - 3-dose Hospital series) [code = HEPATITIS B VACCINES (1 of 3 - 3-dose series)] Future Scheduled 2022-01-28 COVID-19 VACCINE (#1) [facility] 12:50:29 [code = COVID-19 Hospital VACCINE (#1)] Future Scheduled 2022-01-28 [facility] Test 12:50:29 malignant neoplasm of Hospit al cervix (procedure) [code = 695715528] Future Scheduled 2022-01-28 INFLUENZA VACCINE [facility] Test 12:50:29 [code = INFLUENZA Hospital VACCINE] Future Scheduled 2022-01-28 HEPATITIS B VACCINES [facility] 12:50:29 (1 of 3 - 3-dose Hospital series) [code = HEPATITIS B VACCINES (1 of 3 - 3-dose series)] Future Scheduled 2022-01-28 COVID-19 VACCINE (#1) [facility] 12:50:29 [code = COVID-19 Hospital VACCINE (#1)] Future Scheduled 2022-01-28 [facility] Test 12:50:29 malignant neoplasm of Hospit al cervix (procedure) [code = 565545612] Future Scheduled 2022-01-28 INFLUENZA VACCINE Method ist Test 12:50:29 [code = INFLUENZA Hospital VACCINE] Future Scheduled 2022-01-28 HEPATITIS B VACCINES [facility] 12:50:29 (1 of 3 - 3-dose Hospital series) [code = HEPATITIS B VACCINES (1 of 3 - 3-dose series)] Future Scheduled 2022-01-28 COVID-19 VACCINE (#1) [facility] 12:50:29 [code = COVID-19 Hospital VACCINE (#1)] Future Scheduled 2022-01-28 Scre[facility] for [facility] Test 12:50:29 malignant neoplasm of Hospit al cervix (procedure) [code = 142102064] Future Scheduled 2022-01-20 Pneumococcal Combined [employer] Test 14:22:51 (1 - PCV) [code = of Medicin e Pneumococcal Combined (1 - PCV)] Future Scheduled 2022-01-[address]AN [facility] Test 14:22:51 [code = BMI FOLLOW UP of Med icine PLAN] Future Scheduled 2022-01-20 Hepatitis C screening [employer] Test 14:22:51 (procedure) [code = of Medic ine 222541724] Future Scheduled 2022-01-20 COVID-19 Vaccine (3 - [facility] [employer] Test 14:22:51 Booster for Moderna of Medic ine series) [code = COVID-19 Vaccine (3 - Booster for Moderna series)] Future Scheduled 2022-01-20 FLU VACCINE > 6 MONTHS [facility] 14:22:51 [code = FLU VACCINE > of Med icine 6 MONTHS] Future Scheduled 2022-01-20 Diabetic foot Postponed from [facility] Test 14:22:51 examination 2000 of Medicine (regime/therapy) [code (Postpone Reason: = [id number]] Other) Future Scheduled 2022-01-20 Hemoglobin A1c Postponed from [facility] Test 14:22:51 measurement 12/03/2020 of Medicine (procedure) [code = (Postpone Reason: [id number]] Other) Future Scheduled 2022-01-20 ANNUAL DIABETIC [facility] Test 14:22:51 RETINOPATHY SCREENING of Med icine [code = ANNUAL DIABETIC RETINOPATHY SCREENING] Future Scheduled 2022-01-20 Screening for [facility] Test 14:22:51 malignant neoplasm of of Med icine cervix (procedure) [code = 038437627] Future Scheduled 2022-01-20 TETANUS SHOT (ADULT) [employer] Test 14:22:51 [code = TETANUS SHOT of Medi cine (ADULT)] Future Scheduled 2021-12-02 Pneumococcal Combined [employer] Test 10:35:45 (1 - PCV) [code = of Medicin e Pneumococcal Combined (1 - PCV)] Future Scheduled 2021-12-02 BMI FOLLOW UP PLAN [employer] Test 10:35:45 [code = BMI FOLLOW UP of Med icine PLAN] Future Scheduled 2021-12-02 Hepatitis C screening Ba [facility] Test 10:35:45 (procedure) [code = of Medic ine 251646077] Future Scheduled 2021-12-02 COVID-19 Vaccine (3 - Ba or [facility] Test 10:35:45 Booster for Moderna of Medic ine series) [code = COVID-19 Vaccine (3 - Booster for Moderna series)] Future Scheduled 2021-12-02 FLU VACCINE > 6 MONTHS B [facility] Test 10:35:45 [code = FLU VACCINE > of Med icine 6 MONTHS] Future Scheduled 2021-12-02 Diabetic foot Postponed from [facility] Test 10:35:45 examination 2000 of Medicine (regime/therapy) [code (Postpone Reason: = [id number]] Other) Future Scheduled 2021-12-02 Hemoglobin A1c Postponed from [facility] Test 10:35:45 measurement 12/03/2020 of Medicine (procedure) [code = (Postpone Reason: [id number]] Other) Future Scheduled 2021-12-02 ANNUAL DIABETIC [facility] Test 10:35:45 RETINOPATHY SCREENING of Med icine [code = ANNUAL DIABETIC RETINOPATHY SCREENING] Future Scheduled 2021-12-02 Screening for [facility] Test 10:35:45 malignant neoplasm of of Med icine cervix (procedure) [code = 547116593] Future Scheduled 2021-12-02 TETANUS SHOT (ADULT) [employer] Test 10:35:45 [code = TETANUS SHOT of Medi cine (ADULT)] Future Scheduled 2021-11-25 Pneumococcal Combined [employer] Test 16:21:52 (1 - PCV) [code = of Medicin e Pneumococcal Combined (1 - PCV)] Future Scheduled 2021-11-[address] UP [address]AN [facility] [place] Test 16:21:52 [code = BMI FOLLOW UP of Med icine PLAN] Future Scheduled 2021-11-25 Hepatitis C screening [facility] Test 16:21:52 (procedure) [code = of Medic ine 180949006] Future Scheduled 2021-11-25 COVID-19 Vaccine (3 - Ba [facility] Test 16:21:52 Booster for Moderna of Medic ine series) [code = COVID-19 Vaccine (3 - Booster for Moderna series)] Future Scheduled 2021-11-25 FLU VACCINE > 6 MONTHS B [facility] Test 16:21:52 [code = FLU VACCINE > of Med icine 6 MONTHS] Future Scheduled 2021-11-25 Diabetic foot Postponed from [facility] Test 16:21:52 examination 2000 of Medicine (regime/therapy) [code (Postpone Reason: = [id number]] Other) Future Scheduled 2021-11-25 Hemoglobin A1c Postponed from [facility] Test 16:21:52 measurement 12/03/2020 of Medicine (procedure) [code = (Postpone Reason: [id number]] Other) Future Scheduled 2021-11-25 ANNUAL DIABETIC [facility] Test 16:21:52 RETINOPATHY SCREENING of Med icine [code = ANNUAL DIABETIC RETINOPATHY SCREENING] Future Scheduled 2021-11-25 Screening for [facility] Test 16:21:52 malignant neoplasm of of Med icine cervix (procedure) [code = 713251717] Future Scheduled 2021-11-25 TETANUS SHOT (ADULT) [facility] Test 16:21:52 [code = TETANUS SHOT of Medi cine (ADULT)] Future Scheduled 2021-11-25 [facility] [place] [facility] 16:21:52 (1 - PCV) [code = of Medicin e Pneumococcal Combined (1 - PCV)] Future Scheduled 2021-11-[address] [facility] Test 16:21:52 [code = BMI FOLLOW UP of Med icine PLAN] Future Scheduled 2021-11-25 Hepatitis C screening [facility] Test 16:21:52 (procedure) [code = of Medic ine 384288545] Future Scheduled 2021-11-25 COVID-19 Vaccine (3 - Ba [facility] Test 16:21:52 Booster for Moderna of Medic ine series) [code = COVID-19 Vaccine (3 - Booster for Moderna series)] Future Scheduled 2021-11-25 FLU VACCINE > 6 MONTHS B [facility] Test 16:21:52 [code = FLU VACCINE > of Med icine 6 MONTHS] Future Scheduled 2021-11-25 Diabetic foot Postponed from [facility] Test 16:21:52 examination 2000 of Medicine (regime/therapy) [code (Postpone Reason: = [id number]] Other) Future Scheduled 2021-11-25 Hemoglobin A1c Postponed from [facility] Test 16:21:52 measurement 12/03/2020 of Medicine (procedure) [code = (Postpone Reason: [id number]] Other) Future Scheduled 2021-11-25 ANNUAL DIABETIC [facility] Test 16:21:52 RETINOPATHY SCREENING of Med icine [code = ANNUAL DIABETIC RETINOPATHY SCREENING] Future Scheduled 2021-11-25 Screening for [facility] Test 16:21:52 malignant neoplasm of of Med icine cervix (procedure) [code = 603864727] Future Scheduled 2021-11-25 TETANUS SHOT (ADULT) [facility] Test 16:21:52 [code = TETANUS SHOT of Medi cine (ADULT)] Future Scheduled 2021-11-18 Pneumococcal Combined [facility] Test 15:15:35 (1 - PCV) [code = of Medicin e Pneumococcal Combined (1 - PCV)] Future Scheduled 2021-11-18 BMI FOLLOW UP PLAN [facility] Test 15:15:35 [code = BMI FOLLOW UP of Med icine PLAN] Future Scheduled 2021-11-18 Hepatitis C screening [facility] Test 15:15:35 (procedure) [code = of Medic ine 140176896] Future Scheduled 2021-11-18 [facility] Booster for Moderna of Medic ine series) [code = COVID-19 Vaccine (3 - Booster for Moderna series)] Future Scheduled 2021-11-18 FLU VACCINE > 6 MONTHS B [facility] Test 15:15:35 [code = FLU VACCINE > of Med icine 6 MONTHS] Future Scheduled 2021-11-18 Diabetic foot Postponed from [facility] Test 15:15:35 examination 2000 of Medicine (regime/therapy) [code (Postpone Reason: = [id number]] Other) Future Scheduled 2021-11-18 Hemoglobin A1c Postponed from [facility] Test 15:15:35 measurement 12/03/2020 of Medicine (procedure) [code = (Postpone Reason: [id number]] Other) Future Scheduled 2021-11-18 ANNUAL DIABETIC [facility] Test 15:15:35 RETINOPATHY SCREENING of Med icine [code = ANNUAL DIABETIC RETINOPATHY SCREENING] Future Scheduled 2021-11-18 Screening for [facility] Test 15:15:35 malignant neoplasm of of Med icine cervix (procedure) [code = 064808193] Future Scheduled 2021-11-18 TETANUS SHOT (ADULT) [facility] Test 15:15:35 [code = TETANUS SHOT of Medi cine (ADULT)] Future Scheduled 2021-11-04 Pneumococcal Combined [facility] Test 15:35:08 (1 - PCV) [code = of Medicin e Pneumococcal Combined (1 - PCV)] Future Scheduled 2021-11-[address] [facility] Test 15:35:08 [code = BMI FOLLOW UP of Med icine PLAN] Future Scheduled 2021-11-04 Hepatitis C screening [facility] Test 15:35:08 (procedure) [code = of Medic ine 987681745] Future Scheduled 2021-11-04 COVID-19 Vaccine (3 - Ba [facility] Test 15:35:08 Booster for Moderna of Medic ine series) [code = COVID-19 Vaccine (3 - Booster for Moderna series)] Future Scheduled 2021-11-04 FLU VACCINE > 6 MONTHS B [facility] Test 15:35:08 [code = FLU VACCINE > of Med icine 6 MONTHS] Future Scheduled 2021-11-04 Diabetic foot Postponed from [facility] Test 15:35:08 examination 2000 of Medicine (regime/therapy) [code (Postpone Reason: = [id number]] Other) Future Scheduled 2021-11-04 Hemoglobin A1c Postponed from [facility] Test 15:35:08 measurement 12/03/2020 of Medicine (procedure) [code = (Postpone Reason: [id number]] Other) Future Scheduled 2021-11-04 ANNUAL DIABETIC [facility] Test 15:35:08 RETINOPATHY SCREENING of Med icine [code = ANNUAL DIABETIC RETINOPATHY SCREENING] Future Scheduled 2021-11-04 Screening for [facility] Test 15:35:08 malignant neoplasm of of Med icine cervix (procedure) [code = 152647994] Future Scheduled 2021-11-04 TETANUS SHOT (ADULT) [facility] Test 15:35:08 [code = TETANUS SHOT of Medi cine (ADULT)] Future Scheduled 2021-09-29 Pneumococcal Combined [facility] Test 11:22:35 (1 of 2 - PPSV23) of Medicin e [code = Pneumococcal Combined (1 of 2 - PPSV23)] Future Scheduled 2021-09-[address] [facility] Test 11:22:35 [code = BMI FOLLOW UP of Med icine PLAN] Future Scheduled 2021-09-29 Hepatitis C screening [facility] Test 11:22:35 (procedure) [code = of Medic ine 644407918] Future Scheduled 2021-09-29 COVID-19 Vaccine (3 - Ba [facility] Test 11:22:35 Booster for Moderna of Medic ine series) [code = COVID-19 Vaccine (3 - Booster for Moderna series)] Future Scheduled 2021-09-29 FLU VACCINE > 6 MONTHS B [facility] Test 11:22:35 [code = FLU VACCINE > of Med icine 6 MONTHS] Future Scheduled 2021-09-29 [facility] examination 2000 of Medicine (regime/therapy) [code (Postpone Reason: = [id number]] Other) Future Scheduled 2021-09-29 Hemoglobin A1c Postponed from [facility] Test 11:22:35 measurement 12/03/2020 of Medicine (procedure) [code = (Postpone Reason: [id number]] Other) Future Scheduled 2021-09-29 ANNUAL DIABETIC [facility] Test 11:22:35 RETINOPATHY SCREENING of Med icine [code = ANNUAL DIABETIC RETINOPATHY SCREENING] Future Scheduled 2021-09-29 Screening for [facility] Test 11:22:35 malignant neoplasm of of Med icine cervix (procedure) [code = 458034437] Future Scheduled 2021-09-29 TETANUS SHOT (ADULT) [facility] Test 11:22:35 [code = TETANUS SHOT of Medi cine (ADULT)] Future Scheduled 2021-09-23 CTA ABDOMEN AND PELVIS 1 Occurrences [facility] Test 15:42:26 W WO CONTRAST [code = starting of Med icine 26863] 09/23/2021 until 09/23/2022 Future Scheduled 2021-09-23 Pneumococcal Combined Ba [facility] Test 14:33:22 (1 of 2 - PPSV23) of Medicin e [code = Pneumococcal Combined (1 of 2 - PPSV23)] Future Scheduled 2021-09-23 BMI FOLLOW UP PLAN [facility] Test 14:33:22 [code = BMI FOLLOW UP of Med icine PLAN] Future Scheduled 2021-09-23 Hepatitis C screening Ba [facility] Test 14:33:22 (procedure) [code = of Medic ine 646774006] Future Scheduled 2021-09-23 COVID-19 Vaccine (3 - Ba [facility] Test 14:33:22 Booster for Moderna of Medic ine series) [code = COVID-19 Vaccine (3 - Booster for Moderna series)] Future Scheduled 2021-09-23 FLU VACCINE > 6 MONTHS B [facility] Test 14:33:22 [code = FLU VACCINE > of Med icine 6 MONTHS] Future Scheduled 2021-09-23 Diabetic foot Postponed from [facility] Test 14:33:22 examination 2000 of Medicine (regime/therapy) [code (Postpone Reason: = [id number]] Other) Future Scheduled 2021-09-23 Hemoglobin A1c Postponed from [facility] Test 14:33:22 measurement 12/03/2020 of Medicine (procedure) [code = (Postpone Reason: [id number]] Other) Future Scheduled 2021-09-23 ANNUAL DIABETIC [facility] Test 14:33:22 RETINOPATHY SCREENING of Med icine [code = ANNUAL DIABETIC RETINOPATHY SCREENING] Future Scheduled 2021-09-23 Screening for [facility] Test 14:33:22 malignant neoplasm of of Med icine cervix (procedure) [code = 320469335] Future Scheduled 2021-09-23 TETANUS SHOT (ADULT) [facility] Test 14:33:22 [code = TETANUS SHOT of Medi cine (ADULT)] Future Scheduled 2021-09-16 Pneumococcal Combined [employer] Test 16:21:55 (1 of 2 - PPSV23) of Medicin e [code = Pneumococcal Combined (1 of 2 - PPSV23)] Future Scheduled 2021-09-[address] UP [address]AN [facility] Test 16:21:55 [code = BMI FOLLOW UP of Med icine PLAN] Future Scheduled 2021-09-16 Hepatitis C screening [facility] Test 16:21:55 (procedure) [code = of Medic ine 057067282] Future Scheduled 2021-09-16 COVID-19 Vaccine (3 - Ba [facility] Test 16:21:55 Booster for Moderna of Medic ine series) [code = COVID-19 Vaccine (3 - Booster for Moderna series)] Future Scheduled 2021-09-16 FLU VACCINE > 6 MONTHS B [facility] [employer] Test 16:21:55 [code = FLU VACCINE > of Med icine 6 MONTHS] Future Scheduled 2021-09-16 Diabetic foot Postponed from [facility] ollege Test 16:21:55 examination 2000 of Medicine (regime/therapy) [code (Postpone Reason: = [id number]] Other) Future Scheduled 2021-09-16 Hemoglobin A1c Postponed from [facility] Test 16:21:55 measurement 12/03/2020 of Medicine (procedure) [code = (Postpone Reason: [id number]] Other) Future Scheduled 2021-09-16 ANNUAL DIABETIC [facility] ollege Test 16:21:55 RETINOPATHY SCREENING of Med icine [code = ANNUAL DIABETIC RETINOPATHY SCREENING] Future Scheduled 2021-09-16 Screening for [facility] [employer] Test 16:21:55 malignant neoplasm of of Med icine cervix (procedure) [code = 153302268] Future Scheduled 2021-09-16 TETANUS SHOT (ADULT) [facility] Test 16:21:55 [code = TETANUS SHOT of Medi cine (ADULT)] Future Scheduled 2021-06-27 Pneumococcal Combined [employer] [facility] [employer] Test 18:13:41 (1 of 2 - PPSV23) of Medicin e [code = Pneumococcal Combined (1 of 2 - PPSV23)] Future Scheduled 2021-06-27 BMI FOLLOW UP PLAN [employer] Test 18:13:41 [code = BMI FOLLOW UP of Med icine PLAN] Future Scheduled 2021-06-27 Hepatitis C screening [employer] [facility] [employer] Test 18:13:41 (procedure) [code = of Medic ine 547995302] Future Scheduled 2021-06-27 COVID-19 Vaccine (3 - Ba [facility] Test 18:13:41 Booster for Moderna of Medic ine series) [code = COVID-19 Vaccine (3 - Booster for Moderna series)] Future Scheduled 2021-06-27 Diabetic foot Postponed from [facility] ollege Test 18:13:41 examination 2000 of Medicine (regime/therapy) [code (Postpone Reason: = [id number]] Other) Future Scheduled 2021-06-27 Hemoglobin A1c Postponed from [facility] Test 18:13:41 measurement 11/28/2020 of Medicine (procedure) [code = (Postpone Reason: [id number]] Other) Future Scheduled 2021-06-27 ANNUAL DIABETIC [facility] C [employer]lege Test 18:13:41 RETINOPATHY SCREENING of Med icine [code = ANNUAL DIABETIC RETINOPATHY SCREENING] Future Scheduled 2021-06-27 Screening for [facility] [employer] Test 18:13:41 malignant neoplasm of of Med icine cervix (procedure) [code = 970056089] Future Scheduled 2021-06-27 TETANUS SHOT (ADULT) [facility] Test 18:13:41 [code = TETANUS SHOT of Medi cine (ADULT)] Future Scheduled 2021-06-27 HEPATITIS C REFLEX QNT Ordered: B [facility] Test 18:08:32 [code = NOCPT] 06/27/2021 of Medicine Future Scheduled 2021-06-27 VITAMIN A [code = Ordered: [facility] Test 18:07:10 2923-1] 06/27/2021 of Medicine Future Scheduled 2021-06-27 VITAMIN E [code = Ordered: [facility] Test 18:07:10 1823-4] 06/27/2021 of Medicine Future Scheduled 2021-06-27 VITAMIN K [code = Ordered: [facility] Test 18:07:10 97982] 06/27/2021 of Medicine Future Scheduled 2021-06-27 VITAMIN B1 [code = Ordered: [facility] Test 18:07:10 58434-4] 06/27/2021 of Medicine Future Scheduled 2021-06-27 FOLATE [code = 2284-8] Ordered: B [facility] Test 18:07:10 06/27/2021 of Medicine Future Scheduled 2021-06-27 ZINC [code = 5763-8] Ordered: [facility] Test 18:07:10 06/27/2021 of Medicine Future Scheduled 2021-06-27 COPPER, SERUM [code = Ordered: [facility] Test 18:07:10 29717] 06/27/2021 of Medicine Future Scheduled 2021-06-27 SELENIUM SERUM [code = Ordered: [facility] Test 18:07:10 09483] 06/27/2021 of Medicine Future Scheduled 2021-06-27 IRON+TIBC+%SAT [code = Ordered: [facility] Test 18:07:10 NOCPT] 06/27/2021 of Medicine Future Scheduled 2021-06-27 FERRITIN [code = Ordered: [facility] Test 18:07:10 14004-4] 06/27/2021 of Medicine Future Scheduled 2021-06-27 VITAMIN B12 [code = Ordered: [facility] Test 18:07:10 2132-9] 06/27/2021 of Medicine Future Scheduled 2021-06-27 VITAMIN D 25 HYDROXY Ordered: [facility] Test 18:07:10 [code = 1989-3] 06/27/2021 of Medicine Future Scheduled 2021-06-27 FSH + LH PROFILE [code Ordered: [facility] Test 11:46:59 = 22041-3] 06/27/2021 of Medicine Future Scheduled 2021-06-27 ESTRADIOL [code = Ordered: [facility] Test 11:46:59 2243-4] 06/27/2021 of Medicine Future Scheduled 2021-06-27 Pneumococcal Combined [facility] Test 11:26:58 (1 of 2 - PPSV23) of Medicin e [code = Pneumococcal Combined (1 of 2 - PPSV23)] Future Scheduled 2021-06-27 Diabetic foot [facility] [employer] Test 11:26:58 examination of Medicine (regime/therapy) [code = 832950381] Future Scheduled 2021-06-27 ANNUAL DIABETIC [facility] C [employer] Test 11:26:58 RETINOPATHY SCREENING of Med icine [code = ANNUAL DIABETIC RETINOPATHY SCREENING] Future Scheduled 2021-06-[address] UP [address]AN [facility] r College Test 11:26:58 [code = BMI FOLLOW UP of Med icine PLAN] Future Scheduled 2021-06-27 Hepatitis C screening [employer] Test 11:26:58 (procedure) [code = of Medic ine 910992644] Future Scheduled 2021-06-27 Human immunodeficiency B [facility] [employer] Test 11:26:58 virus screening of Medicine (procedure) [code = 475343376] Future Scheduled 2021-06-27 Hemoglobin A1c [facility] [employer] Test 11:26:58 measurement of Medicine (procedure) [code = 62181357] Future Scheduled 2021-06-27 COVID-19 Vaccine (3 - [employer] Test 11:26:58 Booster for Moderna of Medic ine series) [code = COVID-19 Vaccine (3 - Booster for Moderna series)] Future Scheduled 2021-06-27 Screening for [facility] [employer] Test 11:26:58 malignant neoplasm of of Med icine cervix (procedure) [code = 828780415] Future Scheduled 2021-06-27 TETANUS SHOT (ADULT) [facility] Test 11:26:58 [code = TETANUS SHOT of Medi cine (ADULT)] Diagnostic Test 2021-06-27 MRI BREAST BILATERAL W Expected: [facility] [employer] Pending 00:00:00 WO CONTRAST [code = 06/27/2021, of Medic ine 79570] Expires: 12/25/2022 Future Scheduled 2021-05-[address] [facility] Test 00:00:00 (12+) [code = Medical Center DEPRESSION SCREENING (12+)] Future Scheduled 2021-05-[address] [facility] Test 00:00:00 (12+) [code = Medical Center DEPRESSION SCREENING (12+)] Future Scheduled 2021-05-[address] [facility] Test 00:00:00 (12+) [code = Medical Center DEPRESSION SCREENING (12+)] Future Scheduled 2021-05-13 Pneumococcal Combined [employer] Test 09:30:51 (1 of 2 - PPSV23) of Medicin e [code = Pneumococcal Combined (1 of 2 - PPSV23)] Future Scheduled 2021-05-13 Diabetic foot [facility] [employer] Test 09:30:51 examination of Medicine (regime/therapy) [code = 755599700] Future Scheduled 2021-05-13 ANNUAL DIABETIC [facility] C [employer] Test 09:30:51 RETINOPATHY SCREENING of Med icine [code = ANNUAL DIABETIC RETINOPATHY SCREENING] Future Scheduled 2021-05-[address] [facility] Test 09:30:51 [code = BMI FOLLOW UP of Med icine PLAN] Future Scheduled 2021-05-13 Hepatitis C screening [facility] Test 09:30:51 (procedure) [code = of Medic ine 980755933] Future Scheduled 2021-05-13 Human immunodeficiency B [facility] Test 09:30:51 virus screening of Medicine (procedure) [code = 706355311] Future Scheduled 2021-05-13 Screening for [facility] [employer] Test 09:30:51 malignant neoplasm of of Med icine cervix (procedure) [code = 042252939] Future Scheduled 2021-05-13 TETANUS SHOT (ADULT) [facility] Test 09:30:51 [code = TETANUS SHOT of Medi cine (ADULT)] Future Scheduled 2021-05-02 FSH + LH PROFILE [code Every 4 Weeks for [facility] Test 15:05:30 = 85702-4] 10 Occurrences of Medicine starting 05/02/2021 until 05/02/2022, 1 completed Future Scheduled 2021-05-02 ESTRADIOL [code = Every 4 Weeks for B [facility] Test 15:05:30 2243-4] 10 Occurrences of Medicine starting 05/02/2021 until 05/02/2022, 1 completed Diagnostic Test 2021-05-02 MAMMO STEREOTACTIC Expected: [facility] Pending 00:00:00 BREAST BIOPSY RIGHT 05/02/2021, of Thu coreas [code = 68133-1] Expires: 10/31/2022 Future Scheduled 2021-04-01 FSH + LH PROFILE [code Ordered: B [facility] Test 13:35:00 = 96394-3] 04/01/2021 of Medicine Future Scheduled 2021-04-01 ESTRADIOL [code = Ordered: [facility] Test 13:35:00 2243-4] 04/01/2021 of Medicine Future Scheduled 2021-04-01 Diabetic foot [facility] [employer] Test 13:28:26 examination of Medicine (regime/therapy) [code = 620570665] Future Scheduled 2021-04-01 ANNUAL DIABETIC [facility] [employer] Test 13:28:26 RETINOPATHY SCREENING of Med icine [code = ANNUAL DIABETIC RETINOPATHY SCREENING] Future Scheduled 2021-04-01 BMI FOLLOW UP PLAN [employer] Test 13:28:26 [code = BMI FOLLOW UP of Med icine PLAN] Future Scheduled 2021-04-01 Hepatitis C screening [employer] Test 13:28:26 (procedure) [code = of Medic ine 565766851] Future Scheduled 2021-04-01 Human immunodeficiency [employer] Test 13:28:26 virus screening of Medicine (procedure) [code = 563852400] Future Scheduled 2021-04-01 Screening for [facility] [employer] Test 13:28:26 malignant neoplasm of of Med icine cervix (procedure) [code = 677324181] Future Scheduled 2021-04-01 TETANUS SHOT (ADULT) [employer] Test 13:28:26 [code = TETANUS SHOT of Medi cine (ADULT)] Future Scheduled 2021-03-18 Diabetic foot [facility] [employer] Test 09:47:10 examination of Medicine (regime/therapy) [code = 035128242] Future Scheduled 2021-03-18 ANNUAL DIABETIC [facility] [employer] Test 09:47:10 RETINOPATHY SCREENING of Med icine [code = ANNUAL DIABETIC RETINOPATHY SCREENING] Future Scheduled 2021-03-18 BMI FOLLOW UP PLAN [employer] Test 09:47:10 [code = BMI FOLLOW UP of Med icine PLAN] Future Scheduled 2021-03-18 Hepatitis C screening [employer] Test 09:47:10 (procedure) [code = of Medic ine 347439434] Future Scheduled 2021-03-18 Human immunodeficiency [employer] Test 09:47:10 virus screening of Medicine (procedure) [code = 359821944] Future Scheduled 2021-03-18 Screening for [facility] Test 09:47:10 malignant neoplasm of of Med icine cervix (procedure) [code = 675903931] Future Scheduled 2021-03-18 TETANUS SHOT (ADULT) [employer] Test 09:47:10 [code = TETANUS SHOT of Medi cine (ADULT)] Future Scheduled 2021-03-04 Diabetic foot [facility] [employer] Test 17:36:39 examination of Medicine (regime/therapy) [code = 824839125] Future Scheduled 2021-03-04 ANNUAL DIABETIC [facility] [employer] Test 17:36:39 RETINOPATHY SCREENING of Med icine [code = ANNUAL DIABETIC RETINOPATHY SCREENING] Future Scheduled 2021-03-04 BMI FOLLOW UP PLAN [employer] Test 17:36:39 [code = BMI FOLLOW UP of Med icine PLAN] Future Scheduled 2021-03-04 Hepatitis C screening [employer] Test 17:36:39 (procedure) [code = of Medic ine 508968046] Future Scheduled 2021-03-04 Human immunodeficiency [employer] Test 17:36:39 virus screening of Medicine (procedure) [code = 796976634] Future Scheduled 2021-03-04 Screening for [facility] [employer] Test 17:36:39 malignant neoplasm of of Med icine cervix (procedure) [code = 304756868] Future Scheduled 2021-03-04 TETANUS SHOT (ADULT) [employer] Test 17:36:39 [code = TETANUS SHOT of Medi cine (ADULT)] Future Scheduled 2021-03-04 CT PET SKULL-BASE 1 Occurrences [employer] Test 16:50:02 MID-THIGH (79564) starting of Medicin e [code = 50559] 03/04/2021 until 03/04/2022 Future Scheduled 2021-03-04 CBC W/AUTO DIFF WITH Ordered: [employer] Test 16:42:08 PLATELETS [code = 03/04/2021 of Medicin e 14587-5] Future Scheduled 2021-03-04 COMPREHENSIVE Ordered: [facility] [employer] Test 16:42:08 METABOLIC PANEL [code 03/04/2021 of Med icine = 09535-7] Future Scheduled 2021-03-04 CT PET BREAST INITIAL 1 Occurrences [employer] Test 16:42:07 STAGING [code = 81533] starting of Me dicine 03/04/2021 until 03/04/2022 Future Scheduled 2021-03-04 Diabetic foot [facility] [employer] Test 14:38:11 examination of Medicine (regime/therapy) [code = 484832196] Future Scheduled 2021-03-04 ANNUAL DIABETIC [facility] [employer] Test 14:38:11 RETINOPATHY SCREENING of Med icine [code = ANNUAL DIABETIC RETINOPATHY SCREENING] Future Scheduled 2021-03-04 Hepatitis C screening [employer] Test 14:38:11 (procedure) [code = of Medic ine 347474932] Future Scheduled 2021-03-04 Human immunodeficiency [employer] Test 14:38:11 virus screening of Medicine (procedure) [code = 317874112] Future Scheduled 2021-03-04 Screening for [facility] [employer] Test 14:38:11 malignant neoplasm of of Med icine cervix (procedure) [code = 740816335] Future Scheduled 2021-03-04 TETANUS SHOT (ADULT) [facility] Test 14:38:11 [code = TETANUS SHOT of Medi cine (ADULT)] Diagnostic Test 2021-03-04 MRI BREAST BILATERAL W Expected: [facility] Pending 00:00:00 WO CONTRAST [code = 03/04/2021, of Medic ine 40801] Expires: 09/02/2022 Diagnostic Test 2021-03-04 ECHOCARDIOGRAM Expected: [facility] Pending 00:00:00 TRANSTHORACIC [code = 03/04/2021, of Med icine 48763] Expires: 03/04/2022 Future Scheduled 2021-02-04 COVID-19 VACCINE (3 - [facility] Test 00:[facility]:00 Booster for Moderna [facility] series) [code = COVID-19 VACCINE (3 - Booster for Moderna series)] Future Scheduled 2021-02-04 COVID-19 VACCINE (3 - [facility] Test 00:00:00 Booster for [facility]a [facility] series) [code = COVID-19 VACCINE (3 - Booster for Moderna series)] Future Scheduled 2021-02-04 COVID-19 VACCINE (3 - [facility] Test 00:00:00 Booster for Moderna [facility] series) [code = COVID-19 VACCINE (3 - Booster for Moderna series)] Future Scheduled 2003-09-[address] [facility] Test 00:00:00 malignant neoplasm of Medica l Center cervix (procedure) [code = 854592445] Future Scheduled 2003-09-[address] [facility] [facility] Test 00:00:00 malignant neoplasm of Medica l Center cervix (procedure) [code = 296491722] Future Scheduled 2003-09-[address] [facility] Test 00:00:00 malignant neoplasm of Medica l Center cervix (procedure) [code = 742346483] Future Scheduled 2000 HEPATITIS C [facility]CREENING [facility] Test 00:00:00 [code = HEPATITIS C Medical Center SCREENING] Future Scheduled 2000 HEPATITIS C [facility] Test 00:00:00 [code = HEPATITIS C Medical Center SCREENING] Future Scheduled 2000 HEPATITIS C SCREENING [facility] Test 00:00:00 [code = HEPATITIS C Medical Center SCREENING] Encounters Start End Encounter Admission Attending Care Care Encounter Source Date/Time Date/Time Type Type Clinicians Facility Department ID 2022-03-24 2022-03-24 [facility] [id number] [facility] 13:11:50 15:39:52 Visit NÉSTOR Cesar 350.1.13.21 Co llege 0.2.7.2.686 of [id number] Medi lashae 500 e 2022-03-17 2022-03-17 Outpatient BC BC [id number] [facility] 14:12:13 23:59:00 Colleg e of Medicin e 2022-02-17 2022-02-17 Outpatient BCM BCM [id number] [facility] 13:20:21 23:59:00 Colleg [facility] Medicin e 2022-01-20 2022-01-20 Outpatient BC BC [id number] [facility] 13:23:09 23:59:00 Colleg e of Medicin e 2022-01-20 2022-01-20 Office PRADEEP KRUSE [facility] [id number] [facility] 13:32:15 14:53:10 Visit Cesar 350.1.13.21 Co llege 0.2.7.2.686 of [id number] Medi lashae 500 e 2022-01-14 2022-01-14 Rubin Hanna [facility] [id number] Univers 00:00:00 00:00:00 Zachery LYN 350.1.13.10 i ty andres IBRAHIM 4.2.7.2.686 Ab CARDONA [id number] Sd dical NAL [address] [place] [address] 2021-12-29 2021-12-29 Procedure Rno [facility] [id number] [facility] 14:[facility] 15[facility]00 [facility] 2021-12-29 2021-12-29 Procedure Ron [facility] [id number] [facility] 14:00:00 15:00:00 visit [facility] 2021-12-23 2021-12-23 Outpatient BCM [facility] [id number] [facility] 13:39:48 23:59:00 [facility] [employer] [employer] 2021-12-15 2021-12-15 Procedure Hamstra, [facility] [id number] 14:00:00 15:00:00 visit [facility] 2021-12-15 2021-12-15 Procedure Hamstra, [facility] [id number] [facility] 14:00:00 15:00:00 visit [facility] 2021-12-02 2021-12-02 Office AXEL [facility] [id number] [facility] 10:02:21 11:33:40 Visit BRONWYN AMBULATOR 350.1.13.21 College NATAN Y 0.2.7.2.686 of [id number] Medi lashae 800 e 2021-11-25 2021-11-25 Outpatient BCM BC [id number] [facility] 13:39:03 23:59:00 Colleg [employer]in e 2021-11-25 2021-11-25 Office Matt [facility] [id number] [facility] 14:45:00 15:42:19 Visit Zo Powell McNair 350.1.13.21 College 0.2.7.2.686 of [id number] Medi lashae 510 e 2021-11-25 2021-11-25 Office Pradeep Kruse [facility] [id number] [facility] 15:00:00 15:20:00 Visit Cesar 350.1.13.21 Co llege 0.2.7.2.686 of [id number] Medi lashae 500 e 2021-11-18 2021-11-18 Office Axel [facility] [id number] [facility] 14:30:00 15:28:52 Visit Bronwyn, AMBULATOR 350.1.13.21 College Natan Ermias Y 0.2.7.2.686 andres Mccarthy [id number] Medi lashae 800 e 2021-11-12 2021-11-12 Outpatient BCM [facility] [id number] [facility] 06:28:00 23:59:00 Lisa richardson of Medicin e 2021-11-12 2021-11-12 [facility] [id number] 06:28:00 17:05:00 Encounter [facility] 2021-11-12 2021-11-12 [facility] [id number] 06:28:00 17:05:00 Encounter [facility] 2021-11-12 2021-11-12 [facility] [id number] 08:00:00 12:30:00 [facility] 2021-11-12 2021-11-12 [facility] [id number] 08:00:00 12:30:00 [facility] 2021-11-12 2021-11-12 [facility] [id number] [facility] 08:00[facility]00 12:03:00 [facility]-12 2021-11-12 [facility] [id number] [facility] 08:00:00 12:03:00 Event Ady, [facility] 2021-11-11 2021-11-11 [facility] [id number] 14:00:00 23:59:00 Encounter [facility] 2021-11-11 2021-11-11 [facility] [id number] 14:00:00 23:59:00 Encounter [facility] 2021-11-11 2021-11-11 Outpatient BCM [facility] [id number] [facility] 11:26:38 11:26:38 [facility] [employer] [employer] 2021-11-10 2021-11-10 [facility] [id number] 09:15:21 23:59:00 Encounter [facility] 2021-11-10 2021-11-10 [facility] [id number] 09:15:21 23:59:00 Encounter [facility] 2021-11-10 2021-11-10 Outpatient BCM BCM [id number] [facility] 00:00:00 23:59:00 [facility] [employer] 2021-11-10 2021-11-10 Outpatient BCM BCM [id number] [facility] 07:27:00 11:26:36 [facility] [employer] 2021-11-10 2021-11-10 Outpatient BCM [facility] [id number] [facility] 07:25:16 10:06:27 [facility] [employer] [facility] 2021-11-10 2021-11-10 Orders [facility] [id number] 00:00:00 00:00:00 Only [facility] 2021-11-10 2021-11-10 Orders [facility] [id number] 00:00:00 00:00:00 Only [facility] 2021-11-05 2021-11-05 [facility] [id number] 15:24:44 23:59:00 Encounter [facility] 2021-11-05 2021-11-05 [facility] [id number] 15:24:44 23:59:00 Encounter [facility] 2021-11-05 2021-11-[address] [facility] [id number] [facility] 00:[facility]:00 00:00:00 [facility] 2021-11-05 2021-11-[address] [facility] [id number] [facility] 00:00[facility]00 00:00:00 [facility] 2021-11-04 2021-11-04 Office Axel [facility] [id number] [facility] 15:30:00 16:15:33 Visit Bronwyn, AMBULATOR 350.1.13.21 Henryetta Natan Ermias Alvarenga 0.2.7.2.686 of Fabio [id number] Medi lashae 800 e 2021-10-28 2021-10-28 Outpatient [facility] [id number] [facility] 12:52:23 23:59:00 [facility] 2021-10-21 2021-10-21 [facility] [id number] [facility] 00:00:00 00:00:00 Zachery LYN 350.1.13.10 i ty [place] [id number] Sd dical NAL 044 [facility] 2021-10-17 2021-10-17 Outside [facility] [id number] 00:00:00 00:00:00 Orders [facility] 2021-10-17 2021-10-17 Outside [facility] [id number] 00:00:00 00:00:00 Orders [facility] 2021-10-10 2021-10-10 Refill [facility] [id number] Univers 00:00:00 00:00:00 Zachery LYN 350.1.13.10 i ty [place] [id number] Sd dical NAL 044 [facility] 2021-10-07 2021-10-07 [facility] [id number] [facility] 11:31:56 23:59:00 Encounter 3, [facility] 2021-10-07 2021-10-07 [facility] [id number] [facility] 11:31:56 23:59:00 [facility], [facility] 2021-10-07 2021-10-07 Outpatient [facility] [id number] [facility] 13:54:14 15:30:55 [facility] [employer] [facility] [employer] 2021-10-01 2021-10-01 Outside [facility] [id number] 00:00:00 00:00:00 Orders aee, [facility] 2021-10-01 2021-10-01 Outside [facility] [id number] 00:00:00 00:00:00 Orders aee, [facility] 2021-09-30 2021-09-30 Outpatient [facility] [id number] [facility] 13:00:29 23:59:00 [facility] [employer] 2021-09-23 2021-09-23 Office REYNA [facility] [id number] [facility] 14:15:54 15:18:13 Visit BRONWYN, AMBULATOR 350.1.13.21 College NATAN Y 0.2.7.2.686 of [id number] Medi lashae 800 e 2021-09-16 2021-09-16 [facility] [id number] [facility] 14:06:52 15:41:21 Visit ZO Guerrero 350.1.13.21 College 0.2.7.2.686 of [id number] Medi lashae 510 e 2021-09-16 2021-09-16 Office SHAFAEE, [facility] [id number] [facility] 14:26:32 15:10:05 Visit SHELBI Cesar 350.1.13.21 Co llege 0.2.7.2.686 of [id number] Medi lashae 500 e 2021-09-02 2021-09-02 Outpatient [facility] [id number] [facility] 12:55:31 23:59:00 [facility] [employer]in [employer] 2021-08-25 2021-08-25 Outside [facility] [id number] 00:00:00 00:00:00 Orders Cristina Blanchard [facility] 2021-08-25 2021-08-25 [facility] [id number] 00:00:00 00:00:00 Orders Cristina Blanchard [facility] [facility] 2021-08-14 2021-08-14 [facility] [id number] [facility] 07[facility]45[facility]17 23:59:00 Encounter 3, [facility] 2021-08-14 2021-08-14 [facility] [id number] [facility] 07[facility]17 23:59:00 Encounter 3, [facility] 2021-08-14 2021-08-14 Outpatient [facility] [id number] SLE 00:00:00 00:00:00 SHELBI PLATA 2021-08-04 2021-08-04 Outside [facility] [id number] 00:[facility] 00:00:00 Orders alicia [facility] 2021-08-04 2021-08-04 Outside [facility] [id number] 00:[facility]00 00:00:00 Orders alicia [facility] 2021-07-25 2021-07-25 Outpatient [facility] [id number] [facility] 12:57:14 23:59:00 [facility] 2021-06-27 2021-06-27 Outpatient [facility] [id number] [facility] 12:10:31 23:59:00 [facility] 2021-06-27 2021-06-27 Office [facility] 1.2.840.114 [id number] [facility] 11:09:08 15:00:19 Visit SHELBI Guerrero 350.1.13.21 Co llege 0.2.7.2.686 of [phone] Medi lashae 500 e 2021-06-27 2021-06-27 Office Tristen [facility] 1.2.840.114 [id number] [facility] 10:15:00 14:37:57 Visit Shayne AMBULATOR 350.1.13.21 [facility] 0.2.7.2.686 of [phone] Medi lashae 300 e 2021-06-18 2021-06-18 [facility] 1.2.840.114 [id number] Univers 00:00:00 00:00:00 Zachery LYN 350.1.13.10 i [place] [phone] Sd dical NAL [address] [place] [address] 2021-06-14 2021-06-14 [facility] 1.2.840.114 [id number] Univers 00:00:00 00:00:00 Zachery LYN 350.1.13.10 i [place] [phone] Sd dical NAL [address] [place] [address] 2021-06-13 2021-06-13 [facility] [id number] [facility] 00:00:00 00:00:00 SHELBI [facility] 2021-05-29 2021-05-29 Outpatient [facility] [id number] [facility] 15:01:02 23:59:00 [facility] 2021-05-29 2021-05-29 Outpatient [facility] [id number] [facility] 14:44:12 15:26:08 [facility] 2021-05-29 2021-05-29 Outpatient [facility] [id number] [facility] 00:00:00 00:00:00 [facility] 2021-05-29 2021-05-29 Outpatient [facility] [id number] [facility] 00:00:00 00:00:00 [facility] 2021-05-29 2021-05-29 Outpatient [facility] [id number] [facility] 00:00:00 00:00:00 [facility] 2021-05-22 2021-05-22 Rubin Hanna [facility] 1.2.840.114 [id number] Univers 00:00:00 00:00:00 Zachery LYN 350.1.13.10 i ty of [facility] 4.2.7.2.686 Ab hall PROFESSIO [phone] Me dical NAL [address] [facility] 2021-05-02 2021-05-02 Outpatient [facility] [id number] [facility] 15:13:04 23:59:00 [facility] 2021-05-02 2021-05-02 Office [facility] 1.2.840.114 [id number] [facility] 13:38:41 15:01:48 Visit Cesar SOUSA 350.1.13.21 C blanca MARIO 0.2.7.2.686 of [phone] Medi lashae 500 e 2021-04-01 2021-04-01 Outpatient [facility] [id number] [facility] 14:10:52 23:59:00 [facility]in [facility] 2021-04-01 2021-04-01 Office [facility] 1.2.840.114 [id number] [facility] 13:10:20 14:47:22 Visit SHELBI CassidyNair 350.1.13.21 Co llege 0.2.7.2.686 of [id number] Medi lashae 500 e 2021-03-14 2021-03-14 Office [facility] 1.2.840.114 [id number] [facility] 14:42:49 15:15:42 Visit SHELBI CassidyNair 350.1.13.21 Co llege 0.2.7.2.686 of [phone] Medi lashae 500 e 2021-03-07 2021-03-07 Outpatient [facility] [id number] [facility] 10:47:14 13:23:07 [facility]in [facility] 2021-03-04 2021-03-04 Office [facility] 1.2.840.114 [id number] [facility] 16:52:24 16:52:44 Visit SHELBI Guerrero 350.1.13.21 Co llege 0.2.7.2.686 of [id number] [facility] lashae 500 e 2021-03-04 2021-03-04 Office MATT, [facility] 1.2.840.114 [id number] [facility] 14:00:37 15:01:17 Visit ZO Guerrero 350.1.13.21 [place] 0.2.7.2.686 of [id number] [facility] lashae 510 e 2021-03-04 2021-03-04 Outpatient TRISTEN [facility] [id number] [facility] 10:07:21 10:44:50 SHAYNE Gonzalez e of Medicin e 2021-01-09 2021-01-09 Letter Doctor MARCELA 1.2.840.114 [id number] Univers 00:00:00 00:00:00 (Out) Unassigned, DIAMANTE 350.1.13.10 ity of [facility] 4.2.7.2.686 Jerald as [phone] [facility] [address] 2020-11-28 2020-11-28 Orders Doctor MARCELA 1.2.840.114 [id number] Univers 00:00:00 00:00:00 Only Unassigned, DIAMANTE 350.1.13.10 ity of [facility] 4.2.7.2.686 Jerald as [phone] [facility] [address] 2020-11-22 2020-11-22 Refill [facility] 1.2.840.114 [id number] Univers 00:00:00 00:00:00 Zachery Lyn 350.1.13.10 [place] [phone] [facility] [address] [facility] 2020-06-18 2020-06-18 Telephone [facility] 1.2.840.114 [id number] Univers 00:00:00 00:00:00 Zachery Lyn 350.1.13.10 [place] [phone] Sd dical [facility] 044 [facility] 2020-06-05 2020-06-05 [employer]ured [employer] Supervisor 2, Adc Lab [facility] 1.2.840.114 [id number] Univers 14:37:59 14:52:59 Visit Zachery Hanna 350.1.13.10 [place] [phone] [facility] 353 [facility] 2020-06-05 2020-06-05 Office [facility] 1.2.840.114 [id number] Univers 13:35:47 14:35:44 Visit Zachery Lyn 350.1.13.10 [place] [phone] [address] 2020-06-05 2020-06-05 [id number] Univers 13:40:00 13:40:00 ZACHERY [facility] 2020-06-05 2020-06-05 Letter Doctor MARCELA 1.2.840.114 [id number] Univers 00:00:00 00:00:00 (Out) Unassigned, DIAMANTE 350.1.13.10 ity of [place] [facility] 4.2.7.2.686 Jerald as [phone] [address] 2020-06-05 2020-06-05 Orders Doctor MARCELA 1.2.840.114 [id number] Univers 00:00:00 00:00:00 Only Unassigned, DIAMANTE 350.1.13.10 ity of [place] [facility] 4.2.7.2.686 Jerald as [phone] [address] 2020-05-21 2020-05-21 [facility] 1.2.840.114 [id number] Univers 00:00:00 00:00:00 Zachery Lyn 350.1.13.10 [place] [phone] [address] 2020-03-14 2020-03-14 [facility]phone [facility] 1.2.840.114 [id number] Univers 00:00:00 00:00:00 Zachery Lyn 350.1.13.10 [place] [phone] [address] 2019-12-04 2019-12-04 [facility] [id number] Univers 11:00:00 11:00:00 ZACHERY [facility] 2019-12-04 2019[facility]12-[facility] 1.2.840.114 [id number] Univers 08:23:28 08:43:28 ne Visit Zachery Lyn 350.1.13.10 [place] [phone] [address] 2019-09-05 2019-09-05 [facility] [id number] Univers 14:40:00 14:40:00 ZACHERY [facility] 2019-09-05 2019-09-05 [facility] 1.2.840.114 [id number] Univers 07:18:17 07:38:17 ne Visit Zachery Lyn 350.1.13.10 [place] [phone] [address] 2019 2019 Telephone [facility] 1.2.840.114 [id number] Univers 00:00:00 00:00:00 Zachery Lyn 350.1.13.10 [place] [phone] [address] 2019-08-28 2019-08-28 Stefano Ashby [facility] 1.2.840.114 [id number] Univers 00:00:00 00:00:00 Zach Lyn 350.1.13.10 [place] [phone] Me dical nal [address] Building Results Test Description Test Time Test Comments Results Result Comments Source Tissue Exam 2021-11-18 15:33:13 Test Item Value Reference Range Interpretation Comme nts Case Report (test code = 104) Surgical Pathology Report Case: [id number] Authorizing Provider: Zo Gutierrez, Collected: 11/12/2021 08:48 AM Ordering Location: [facility] Received: 11/12/2021 09:07 AM SERVICES Pathologist: Sisi Amador MD Specimens: A) - Breast, Right, Right breast skin B) - Breast, Right, Right breast lumpectomy 10 o'clock, long stitch-lateral, short stitch-superior, ink is deep, for inspection of margins C) - Breast, Left, Left breast tissue D) - Lymph Node, Stirling, Right Axilla, Number 1, count- 586 E) - Breast, Right, Right breast new superior-posterior margin, stitch montalvo new margin ADDENDUM (test code = 3381) e2dmmVGzQQNbiPA9RoBbPCAak3gal5IiqRGlmWT yX QqylPUdbuGnbg60mHK8oV34PK0dPEOkDvQ4KIOkbq T3Gos5HWSkQQUliZQcG369w4iwo7khwsForFW0pRr sEIPokiojByO4QZfeWSPgsovrVRy0MUebVZBvkWV0 KOWlwNPkV5ZwMXWiQZ5xubp2VKK8DSqdVPKnBaU3A WCwpUFtBWJloOzgSDyek786FEW9JvLlRYSooxRbnC caoZ2vZwGgDNNAMGNMN43oWw5TTKGYSHOZUNLGPlK FSmCOYTREMaGtBtcQKZYKG4NIMlJYIATDTFBSULPd fbloLEPoMqnGBYQJJ2LPUgXMMFSKS3ZEXQEdS18gZ 9JJSIzJInGAFRAcWHQcaqMBG4NUN4qSJeEQARDGQL HEDwhuKZ1RHWWKXrPkgVDdTJOvl6YxfxOem40vg5N zcrS3ZSZfFDoiJQUzWX81FU7cqHW4DMXfl3CbYeDm JnWmtNCwGOETZE2PGur7ROa0TJVGA7UJVVcWRImhX 1TWW73HKWqHNXCGW5jSGHRpTEvfJDAfyIJhWBDBY1 fCU1ZFZj5MSWXAKPOZQNBPZkqrOI6TA3JTNWVDFQG kzdAMpc1lw9R7bD7pXGMvq4FmNfMhEfEabRJlEXfe dMSct7d6wIOqV30pCSknGJ0eJKHzwpGTCO5QPOWFO eJ9DYXvIO7IKBDYZoVxFJbHNExtBS5AZC5FUCXKQJ JnuichVXBjMMAVYMJkI4XGDx4FURZKWIBJAP8ICbY VDEcFQMhWRDFlA2JOSzU9MAVvHWqyHOBdyKHeDHvr RfkjDQYnf6zbZcOwKCIwk65mwTDjw8IyLYyoQWVTY aPKZEPBEJWiVSftiOXuw1NhWOCeXKuqcKZdOZHdyq gpISJuJ8IRXHLFX8TPLKOIX080YENGJWhIPGpDZqH CEC5KKIYFDwZSAH8JAJNOKJEYUDHXX9PIB92UEcJr qXMkJJKfgRyiC9Rmq60fXKF3BZNazkAmmQhpLCxyK KZkKZPgQDHpAPVzPd1fYJ7qPEVbBfAnNXR5XNqJE1 ceFVFpSSyaH3KgVVvbWVRabBS0tVPoEZXqbNPkJT3 nUCSbaTE6FWRiIMK5SjU1EnAoXpN8AFP8AmSaYQQV PYXdahCUBS6snuTlNVWrk84kEa1yjTEcjC4sOCW7O SBhbmQgdGltZTogMDYvMTcvMjAyMjsgMTMzMCBIUl [file] Acc7PjkV3dcKE5RVF5kD3qLiNqzUZctT== DIAGNOSIS (test code = 3220) p3luqSOwCYRgc2yjETJhpJZvAyAiEgRzPwFrRq pcd WMxIHtccnRmMVxlcGljOTYwMlxhbnNpXHNwbHRwZ3 WxyswuZOojRK1gHQ2quJtioTHayHSsRCUlXfXwp0h mw798kFWwb3srXIQOkdedoOs4jTbdP70ur2J6Auqp I94yqCVyUYZ8SSNcOGNydZGsTJFkOVT4WOVbyGEoU 4mnPFBtCV2lttslXBagCKwxRNCrvSQ4FLVjeRDtB9 JvWEEaEAhcVTPnqae7NrQdHn3qlKSvaYlbYRzdZVN yUQJmACegQIFeIxDlVX1wInXKGKCHGGBZGLzPXAZN K6yDHRTKLBMBL3aYRzhwDNRkCFKySGLbPXAvGB2qM 0bAPnexOuUHOFQHJxRgLy4BMPLHCoPUVz2TEKevEX NaqEVzVCCwSONZTOFDATtjByiYCPOrI8FKMBPLC76 HBLJUEKoRUNHbKEAUNATXMW8FDLrlMCUsHPByGDEj ESNzHK3vYA1QXOuBUaMCDU4WEZwDZgFMDURxP8PCB 5lEY75IVRVMQMYDVDOWGXhpNxUWDHTPHKBRVHTPUU YXOIVbjvMxBYSdIFTcOCVqWEQnDPChQGMuTT4mP3D YBKMNR2SpCSEVWn5IH60PJHLaEQpLW1HTFVTKGLQZ GVJMKLKLQGR0YRBlVI4dhCMeIJIrCAOkLOQvXJKaK KWpUGTnWAXaSQXZJLXQB9tOX5fYNXxZSRZSLDvwIz 4kSLaeNHzoNnXfWAFgBYYNKPRDAbQzH6CJLCPBBFU ccGFyICAgICAgICAgICAgICAgICAgICAgLSBNSVRP DHrCGJKDEV9EUYjpVZ1gCN2MKM9EWNKxOKLWVEXqD EhQRidTXHBhciAgICAgICAgICAgICAgICAgICAgIC 4sMIgWKFeMCRhUIHcXLgDJKE0EJWrVFCMEUYHXMmT ccGFyICAgICAgICAgICAgICAgICAgICAgLSBOTyBU TU3QFdIVWvHUFEWIQOMOMdufOIhJTZiYB8uYZNUxa GFyICAgICAgICAgICAgICAgICAgICAgLSBTVVJHSU KJJEMLSEEPKY3LSGjyYR4FXGMPDcAgiODkRWAfDCS dTLWeADOnFUBvSGPsFOQeTEVcBVHiYLIfRR1kDD3E TVROUF2LDX8oQ6IRUBOQY3LkNhIQU3NCJJmDGHccF x8PCYcVFJpqSOUlFTRdZEMbCJGmXCEtWKUlELYlMJ UvMDRwUYEnAJClRLGbMLTfFMNvWI6qI8SQZAPDOuG qCVRDP3ToRghKDMabFN4NAOMOCH9NAG2eQ6OQAVRD R9ClfVXeOLHtLJIwPAPlRBTeUBHjIVIiGNKqIGJiV UKsOQZfEP5fOL8VCXYZI1QhNyPBTFAOUfXMYZqzNC 02VQ1btVXyNTRgVLYxBGZfJOMqFWUsYANgPHLmSAY fVBOmALClNS0yRWPYNAGJEOkxPH20MU3ziLXlEMOf NGPzIQBbKRGcQDJpSROcCTTlDJWpUHAeHZOiAS0tR U2VEIZXO8ReAfA1II6dfICbCFFbVEWgTGBbEZOlMW MQF7TZSRACDCLDVCVHTT3XVTRqPTMAOAUsKFPwXND CMYQKPDaQZCESGAPfzwWmZLMuEGKzFVSsIEKGZ9SW MYJLRLNBXpVBUk5SVYXZUoUJFPFVTGDjmfWcHHScN JBiUUQeISQDEDmRACGLBTFHP1CNPFPPJQlEPGUVSY uET7cQWRQxdwRtMSYgDNHlHCEzSDKYOD8TO61dSaQ FWQUJFNCNM5ZPOUzwKCQtSWZvPSQdXKGcWU7wIfgB RPZWA5FZSgGJQlPvAIOMYVaFT2xfPPGayIDoVIQsX DZWEBVCEPcuZCZJCIcvAEnUICNPW16tfLRxAGMgBU NjLMPxJFErJJHTDdyURwUBVuMCC9FvRCpJV7OVOFQ filXeRANhUHDkGOMkVATWFD5UF18nN5oCEdsiEWFf eAUhHTFqNIfDOAANRZ2IXEQeYSDXN2iJWQAVRuYDJ vSDZCLsGLNSL7NFXFI2IODgJNANI9CHZMqsRZQhAT ApJCNpMJQkYA4zU79VZQgLNLLVXH8BUJOaK3dYMIK BUPPAN4NKCVuWQHEVHcUKBq0NZJMzCV6zUSawLXHs NNCtGGWlGTDfKPFlDRZdSOKtYHNsDX5EMIFKUXVJE IFdUp7CXPDoEnUiIq8KSCImedFiWWQsRXGlXYNyFM AyFYMnIEYgAT7dUm8DQEvkXIhTLpUFL0JIKBVDDTK PFeCPA89vSXDBE3OAODgxCOPpjGPaXKAiPTJOITSJ UZbxVjnCHPYaPnRMTLZHTDOQHA5MKK7qFB0FYPDJI X2RGG4MTfcGJrraYIpABEGBX78leAVaGLXbHYQuUV CsRSXrBUHRJaIXApJNYKfoFcEEEPDGSJLCO6RQCUb fRJIbBZLtYERkAJKlWD4lHmEZXNOOLbBvBb8KXJJB AkkYCu3YVSTmkHXgxXvqymXfSAhdn7SdJBkcAPTvL O3zpDkgIJSoVG6wPBHoX4fdqB8acbp8BkAfBROqBi N5TWGzheZ8Mhk2RDNsQXuqj8wcl1CgAFGrBJl5lAh aZrOlXLMlw1unqmZmRqLeVWKqFXDcNCMidPJlV180 n8jnc5kdfhVhuRV9XEMhBHW1MTulooPqewF4UJhga VEmSzD1JXhyatYdIEzgzaUsxjUbZfs9MXJeN897GH Y1sYhpw7baCME1QOFeGWUvAsSwSr7bbHDfH244WYI dZITNXJTisXz8DUAkxxAjmoAuvEPZx654D931p3bm RQAeuuCjzQsMrbdva2nsN254GIEutFHipbMhDrOiX NXpcOArmSB0FLIrSF2oxwotRHhoRDcrCYEumwL6YI VnaMTpJ8HaYMLzDI3klrkaTVS7LVtoRMHjLZS6RyL uDANga6Gnhst1YySpxx5guw71BVI5a0RjwBpbULL0 NDI0NfFgNg3huRUaWHJzHY3wQgUeoRGsZEEflg24i GajUAawDKG5JDRnezSro5Xfj8ghRoFxahMsB2vxS2 ZoVLRkJSKmWTIrOaSrmtUpx7Qbu9LrdSRecEa6i1y nQMIlFGVkpNzvk9nbZPC7THDpaZDuI3xonL0hLOFi DL9zppfed7aoGDxnLTmpCJWiiHO2fzF3YZKxoDKwK 2XwqZ8tIWUvTAfcRHLpzix3MjHcEi7ioCLwkLeeAX xzYmtwYWdlXHBnbmNvbnRccGduZGVjXHBsYWluXHB sYWluXGYwXGZzMjRccWxcbGFuZzEwMzNcaGljaFxm VQvhTxGlGRShEQjvG1gkTwUvMfXjKcm9STTwbNLoS OFmHdz7BRYdrGJzWGEPfOjhmY8bKQWyfGdrhD3krJ B5GXVbnsVeqLQFzV8iOHUDhZ2zTiP9XjUkXuZ3QJW 6GRSyhAMdvR4= COMMENT (test code = 3359) j6fjvMPbBVPssWP4IhUhMVCcn8sri0DpaKPlmINa X RggoRBpltXcfk24lTO2lM55HY4sNWZtPoX5BUGpgp F0Msy7NOYyYMHagBHhJ364g9ele8pzkjZjhFO4nYz sQXJlhvdtSgT1AEupTVQelcyiMKq2JNjjUQFqyHS9 BTQexQMhI2EiVLIxCU3moxe4UYW0QFqiZKBvDpC6D NJbyFBqNKOmpUgvTCrwe868WGZ6AdTjCNExueUtjH bkgA3nKsXwJLXFEJ4QHvWHQKKHXN3HRKkQPIRDX7t NM8duIECxKTKPSG1XJFlFXdYLMPWEXtOUGNeMZh4Z TkFMIFRIRVJBUFlccGFyIEFuYXRvbWljIHNpdGUgb 2YchSAlk6DuDmXDTKoOJDCiifBfi1PokRCzUBomp0 BqnD2wrKIooNgvJCK0VSgmJxassSYfbZleXyNuy2Q 5eKHeFUNsgpRpws1qMWijoNFhbSsccOv2PINhbiiy ryFfyWvuHSffIXTpNYuayT0hl6hvCoOfzoUqTUF2J FrxGPJst9PhtaV5RTt7KNSnLzJdvrRamHnyqOOpBL KnwrRYcU3jvhAfvXtnOUbeLKNwcNxzYCDoZISdsDP tcQE5zT9vhpItDJilTfI9dDLrNSrdOYSxKUvppAga bv9kFBJjIlwuGrR9xA2qPHFsjkMKCJTbhD5aPFnuO zXoUECbwfOaoNIsMGWygphvRVQvIOpKSPnwVm1SQG GZIC3THMCLUPBzhiVJp3TawUOvEN9kDDZwakWdflB jOWt5qBJxHZ8iJACeMCygCVqeRPFvZX92FUsdRdCf IlCwj51oz7BusLkuYPjrhYugcXfgud7xTNTuBpVuN PZpqbFLh3MjoJFsYS5tHOBob0c7cJJqGHQyfiGlym YjNMb7tWIcEX7vNBWcOUzdILmtIDExfPHdrY== SYNOPTIC REPORT (test code = 5765) INVASIVE CARCINOMA OF THE BREAST : ResectionINVASIVE CARCINOMA OF THE BREAST: COMPLETE EXCISION - All Sof[employer]ly Edition - Protocol posted: 05/16/2021 SPECIMEN Procedure: Excision (less than total mastectomy) Specimen Laterality: Right TUMOR Histologic Type: Invasive lobular carcinoma Histologic Grade (Timpson Histologic Score): Glandular (Acinar) / Tubular Differentiation: Score 3 Nuclear Pleomorphism: Score 2 Mitotic Rate: Score 1 Overall Grade: Grade 2 (scores of 6 or 7) Tumor Size: Greatest dimension of largest invasive focus (Millimeters): 41 mm Tumor Focality: Single focus of invasive carcinoma Ductal Carcinoma In Situ (DCIS): Not identified Lymphovascular Invasion: Present Treatment Effect in the Breast: Probable or definite response to presurgical therapy in the invasive carcinoma Treatment Effect in the Lymph Nodes: No definite response to presurgical therapy in metastatic carcinoma MARGINS Margin Status for Invasive Carcinoma: All margins negative for invasive carcinoma Distance from Invasive Carcinoma to Closest Margin: 0.5 mm Closest Margin(s) to Invasive Carcinoma: Lateral REGIONAL LYMPH NODES Regional Lymph Node Status: : Tumor present in regional lymph node(s) Number of Lymph Nodes with Macrometastases: 1 Number of Lymph Nodes with Micrometastases: 0 Size of Largest Nay Metastatic Deposit: 12 mm Extranodal Extension: Present, 2 mm or less Total Number of Lymph Nodes Examined (sentinel and non-sentinel): 1 Number of Stirling Nodes Examined: 1 DISTANT METASTASIS PATHOLOGIC STAGE CLASSIFICATION (pTNM, AJCC 8th Edition) Reporting of pT, pN, and (when applicable) pM categories is based on information available to the pathologist at the time the report is issued. As per the AJCC (Chapter 1, 8th Ed.) it is the managing physician s responsibility to establish the final pathologic stage based upon all pertinent information, including but potentially not limited to this pathology report. TNM Descriptors: y (post-treatment) pT Category: pT2 Regional Lymph Nodes Modifier: (sn): Stirling node(s) evaluated. pN Category: pN1a CPT Code(s) (test code = 3357) w8oggCNwRNVyeKV7ZmArZYLkv1wad6DdpXOb cGFyX IqocNFicvAdzq44uLG1kT09WT5xQRAlKbX5YOMauu H5Kpl5YACbUZVnfYSbG713p4vng1ujtxOlfCS6yGf oVAUdnkvoPbY1ZGkhPVIhcltlPXs0IGvlYBBenKX0 KBSzhJOpP9FeQOEuTH0gbxg8MBY1SKjqWDXeAnB1R GBnrHRsYMHzqWjeXBhcf086GZK6VgNgUEStgqDmuS weiZ1fEpWhOVDDEqI2NWUmFkA8DAWvlGJgSYCzBNz 4TnG3BExqQPjnXVhmPcvjiGXiLpU3RCL7FEE1DTB7 REo8HJl3GAhtCYezJQDgGt5bSRloKWMpkJRgLPKsn aYKDxX2ZJYpHzV3SSSvwCYmHDBrVIj2WnG8TYaoWD xwYXJ9 CLINICAL HISTORY (test code = 3356) c7eylXLkVHKclTT5PeItBPJii8viw0X sdHBncGFyX KyxzPXchuYmkw56mJD4rY29BW7mMUYaJvF0NSIbml U5Pla9TCMbKXGrxUHwY672z5qnv2eidoHunYB8zDy yCPJqmevvEbE9CJghSHOqwhihWCr8LOuhNNBkkTU1 BVSjsTTmQ2QhFJMvBQ3ibyq3YIO8ZJhvDRYwGgP3A KQhlLOsZBCxgXknTBjdh231HGP1SbFhCKFwbcDgpK ckrB8yJwWrTVHNlMwvsUCnpoVzs7NvA8ZkR7XrAPN mb3Klx2vvqcMxWNWknDKmaqWcr8HuyXg9XBmxLWE4 SPECIMEN SOURCE (test code = 3377) k6ougCYzPLIpsSF5TvAoNLQbt6aai7Sx dHBncGFyX UjzaWJrlzKfci53fXC3yS94PQ7yKUFzDnV5HFTrwx G9Lsm1JNWfIZAnkVQmW465r9rcz2olqwCquHP5kNi jVESpsfxnXzP6GYzuLABtrfflFVw3DEovCUMepJU9 BDUggJVvR1AhHZFpFG4qqsv8PRO4UKufABKiRtM6F IIdnHXlPVTydMurGLfdl103JWO3BnGyZFJvjcOtlL xzjR7cSdYoBSXHQlBDciWvo1IdUCWeK6z2XCCgtF2 mcPDfZJToGKZaZJFjcCbyogbrwRYdgKElrTBfzB4c mOozINZvWf1aTtIgTZI4KSBgEKJ3KACkd0A6GJzdA GJqIW3sMPsvvGglnu9nMQoxgfnweQBel2OqmZvbDL hztUOfKFGdOXJeMJYvhKznegufbSUiclF7QPL6zRD rnA7kNZ8eqC0xcOTizB5gUG9crfxfckusNWA8 GROSS DESCRIPTION (test code = r0mqoVMwHOKzjYA1NfMbLLTuc5olx6WquHBd cGFyX [id number]) [file] UY9yhKmdGYT3 INTRAOPERATIVE CONSULTATION (test code c2jzwCTsYQQogCV 0MzHgABQin4wtt2UwnLImoVKfR = [id number]) PuljYXckoZjnu50dRY1iG46VV9cQQTzDqJ8PGIowb Q3Huy7GPYgSLFvdQBnU306w6sva9duwcUhaPZ5uYb eZREvulabMoN7RCffGGNpkcozSEr3EVvkWRQxfVW4 IXXncCPmZ7EeRTGfEI6ugep0CJS5YSdkTFClRqP4D EGuuIMsWVPrfPlnSVxro856BFK4ElUxETEscaK1BO ivXBTjA5XgH8CoHAojQCI2DREvOOGoARXrJOGnURE jRTkbteU7m1wkWIEpbFRvHXX3UIugwKVoOGIrYHLk HUpnKiQTYmNzIaDiFCO2KOw1DpY3ZJu7EBUCRnDwZ gBgLqt8RcU3AQXqFJq8QYy9LMkEBgI1RNX8WLNaKf GrTRJnVYGpOKr0NWJbQVxexRMdSNAbZISxGGjzZIy cL45bjAdzoV3iWdDrZVBYWzRKbdRnn6PhPPIgM5h0 GtznYRYkUgEnYZALNaFXP6QpXTFKL5eZEWKGIrclF 6JRWNBnN9KLBZQWRIwWDUKUE0VZFDs8QOnuykIvQO QUZH4GIKKUQDpZWHnuOLETAYKPRA4BLB6MBTCVFCR XZFOHQ2WRDHCKDMBYUEEUDU2WOTMVPTZJK7MBCCEO C3YzATUHLWMfeBhhHMokuJ5lFJPigI2mjZVoUKL4M KUtFfBWVDpgQDXtJPDwZtOFc60mDeSjCD1uECQlZI RlBlWtRqkeNMUaHZftTn13MPYmaVSqDVA4ZV7hgIy sHVRnJ5HzV0TsxgY5HDPkwl3= MICROSCOPIC DESCRIPTION (test code = h8kyhENyBAYjzXJ6SxUbGDMkp0q gg0HymYSxiBNoW 3371) BqqxKPgupWyqc91tUF3kC15JK2cBNQsUxL6UEEhwr R1Zyz1OEKwIAGphKYsM802x8wke3bcoiBogRG1cOh tAGEwrxpqOdD5SZwhHNPahuofXGc3CMpfVEXtqNZ6 KKBzdKTbN8ExLCXeZW1lxyb1EYB5LPeoSDOrZsC6H EJikWFbICNbtOdsYGxmw956IMN7XzMqSBBasrEdqM muvJ7sQuLkFBKHLABcRPUgpiUwco7oQG0amVPvsL= = SPECIAL STUDIES (test code = 3376) r7qvwKUiKUCtw4raQBUjoKSeSzOyWeWg ZnRuYmpcd [file] 5WsqB4lHnfrlDRolwevFYrxxfPkIOltsereSDJjMT bpD7dnXiWgQGYztSkmFAdgw3MxFDHxVVQaJczvsaZ qPBg5ufBaNAHnavwyAQZvxJatcS1vAtEySrRoIbut WK2cWLTjX7ovjNOfVBJlFNUwC9elXqDfjL8fzDecJ DlyCrKeBcPnVyDTw021ms5lZVBoiFUllpYYpPPqzD 7lZFqqPSoiQEoycLKqDMuaj2biPJZmd6i3sPVgVCG akeGsy7sgYAjwhaJaBKNuxOBftKNaBZPsf42qXTzy hExmdIqkJQNir1ThmEgzk5LiZpRpFOtss5BzM00yq CGlhRErxYyuDCWtjhVnOOMzg06mr1lrPZZxCdE9cL WleHD9qRWfmBBwt7IfaNuqXUFhd1bvSXIjff3zexp lmYKsh5VsoO9akjgaXFrhiTErdsSuQZCsw0h8qAAa GKBoYLYsURcodAy2MDHpw188wz9jhjI3dHBuNLD6Z WlsYWJsZSBhcmUgZXZhbHVhdGVkXHBsYWluXGYxXG ZzMjJcbGFuZzEwMzNcaGljaFxmMVxkYmNoXGYxXGx bK8idOoFpM9KvOTLtLoVhtMUmR3zobWFeJKJtAKhy XGYxXGZzMjJcbGFuZzEwMzNcaGljaFxmMVxkYmNoX JUbOIfeX3jeAfPvG1IcGACbPbJaZGgtxMNtzyopLG dsjiJbCLxixlfgHQKtCMclS9syGoWmKRThwAxnWSm sz5RgLTVgXHMuZkxayfPrIEy0sdRqQTDhhwkffCYa bqrpCQlnywCcMAqltsqhYJQcYVnzW9beZgWdVTIvj GpfKLpua4ErNEOaFGCrUcbrwmVbBFkugWCdr9ugs5 MwI5staDxsuFJ5LKMcA9oimADflJO1PBG0yC0mZYj atwRwHWEvn0DlUKFaPOWvXlW2oK6tKGL9XdCTdGfv XHBsYWluXGYxXGZzMjJcbGFuZzEwMzNcaGljaFxmM JhmJoDuYYAgPMnzR9lnVqJoU1MtHOGxLiExxNbrNU azHPs3AikwbQOtqyngQVascqNlKKmdojhmJNIeJMw fC2zvLsEkMPIgqQbmSZixg9TuEPTmOMTiMntxjkMa ZZZjKQMwwDKorHZSJH65XBEwCIQwyPdwdW7cxCHKF DBuycK2e5C7AAwnPAJdUNb5LKjmysQlBWAkdL8vCH EnWC0aJNe1kdRtKTEia5VeTC8yEBTdmTZdTXX8IXP iq1XeU0Dzd8CxCWXuSLMbop3kolCoPwOIzUOyZLQl xu73RZVjEN5pH7kmYCLdAAKdihBldEUlb7DaINUkw LH4lGLuHH1IWqSDr78hYLLhGCSNbjYsRULieEmbcC Q7nzU6yE3yAmDFbBVvYyPFBGwazyCwYMPetp6rsrK pHVVpUQSpo2WpfJDylIPigyQyG8Gqi5ZwCOTnzu94 RGdmfFMatd38ZZ9pX6Bcw6VzkN7pHMzjGPYir9Ryz ZFcyVWoSYKua3XvV5wzxuhjUNzbqJQzvH1nIJQcPD d1IOJxw9KjJHTtm6JkTzQzavBhVUJkZWUfETMfdU3 5ADQ5gThdzNteraFcFY8pKOIldrDwHRZsAGCzwA6j HDbkksLqYVVatvK0a8E7JRirRWFejlPuCclcRLH0r qSehdC4hTZgS8tgdjbbWRivBEYcn6DjgK6kxEMRaG Nwh8QtkMFghKGOvMKtEO1dxvKqVZ8pHYM8VRvqYNV MUJBsXAqhHUFhEWI1OGidBzlqTWM0poGuFUHeo1Wu RSldN5lgX57yvKpmkRy5kYMvrZsyoVPkxJKuXTFwg wI1t9K6BAUxt0VvtdnsDPZaOFxhSYExJMWiMnNcyK ZzMgGaDxVkzBrkgAssRnadGmYeCMZhDKeeY2klMcB pDqKeVbycSOK2yI== Gross assessment was performed at [facility], (test code = 2777) Department of Pathology, [address] [place] [id number], Technical component was performed at [facility], (test code = 2778) Department of Pathology, [address] [place] [id number], Professional component was performed [facility], at (test code = 2779) Department of Pathology, [address] [place] [id number], [id number] 15:33:13 Test Item Value Reference Range Interpretation Comments Case Report (test Surgical Pathology code = 104) Report Case: [id number] Authorizing Provider: Zo Gutierrez, Collected: 11/12/2021 08:48 AM Ordering Location: [facility] PERI[facility] Received: 11/12/2021 09:07 AM SERVICES Pathologist: Sisi Amador MD Specimens: A) - Breast, Right, Right breast skin B) - Breast, Right, Right breast lumpectomy 10 o'clock, long stitch-lateral, short stitch-superior, ink is deep, for inspection of margins C) - Breast, Left, Left breast tissue D) - Lymph Node, [place], Right Axilla, Number 1, count- 586 E) - Breast, Right, Right breast new superior-posterior margin, stitch montalvo new margin ADDENDUM (test code = [id number] 3381) w1srq7YkiFHurJUhCSykbDFl bqDivl92nIE2uM09DZ0vDEVv QsQ3GOPljnG7Vzk3UHMvTSTt iVIfN420w8ofk4xizrLcqRW1 fPxcWWTkplqyLtX3AIukHPJx izmoUSw1VKnkIDLqiTJ8ZHSa yMBtV4CtPTBiJB5wcwl9SIC7 VKvjSNQkMqP7JWToqPJkTHQe pLcxAKvpk580APG4JiBfHYIx rnTqdVhlzY5xCvMxCAIZFKLF K78iTb9GIQKLNTTNSKXRZhKG EvIRGXNODuAyMrvNXNQWT2FF UyBSRVNVTFRTXHBhclxwYXIg VmxPDQZME5UXPeCGRAIMJ0HE BVPnE33vE4HGXDpUAxSVUNXh UELvegYBI8YBW2gZRsIIMCLS OYZPGurhTW4DHRZNAlAndQSi VNHmx0FjbvNqc16ey6UepmX2 PWHsQYnuCCFkQR42QF9daMZ0 FIEdk2GjKyLdQpVldOEhJUCN HK9ZHhf5HFb2QBYVR2DAQRiT LJpkL9TFX48HRXfEWRRHM2lD FCPkJMpxODDjrDFrIGWUZ8vL Z6NFZh3FEVIAHRDKMKYQPjwl KL9YX2ZKKPBKPWEyoeTHoy8i t6G4fN8kAPWxq9EuGnUgPeTj xZEmXAzosNFio3m7mJHrA09f SGluTT0jAATzmyDSEM8AKBKB NwJ4RDXfQX7ZNUOAJvIkHDhK RTrjQN6UZE2YQTGIJTVpoaae OXUeNPVYPXZyD8LZVd8EBBNA UETNID1CDqJVLAyNEOgKTFJk E4AHQzX5EYNpECqsFWLrmQTe ZOsnYfgcWBNro9gaVfVpESKw y30pxKOgf7KsIRieNCKLPxPL BVGGRPCnPCxvgURyt7CkKMXc EIicoYRnMMViwsstPXQwJ9ZJ JPPKX3GTNYXXM631FFMLBVcJ JJwJBvXUDW1MHFFDAtSDXK0D PTSQHNKPVUAZG4BJV73LIeJp cHXoAUJhyVpsV2Ihl40fLXF4 ZSBhbmQgdGltZTogICAgICAg KDLaNAQnRr5sPR3vUKGoPmLi FCD7RCdXQ7inUFZtLJdfZ0Kz JQovENIqnQS1lPLiDSUshASi PI6cFDWhpLK7DOHbZUL6MhR8 KsGyHfT5DVB1XtVfKULWTLBj asHMGW8vioKqLFYnv98gKb6o zQPmbV6nSIG0APHmwkLqdGtk ZTogMDYvMTcvMjAyMjsgMTMz MCBIUlNccGFyXHBhclxwYXIg HUR9zS7un8jzO1o8IMZzroTN tIvuzMavonN6oMRfJFHnFJZx CB7ddEr8EVSbs3Y2GLV8YSLk Ycq4CSKncB3jKMKlBE3caOZo JEdyMrWqZhMeXYPsDg0zbWBu wQ7wRg1xDUWgzKljfD7trKZn UiYekROwSFNbmIY9AIbliYNw UTXeXZQrq2HhiF6iI9GkLRRq FU1sOsXdcD71tdKkBJGfcfzy UINjWZ68uTZpOGunOS8hORJe c8B7IB0nwJlwYN6si5d5GqYA zoPpLy0qoKQkRVVlhbTCUbrx UGdSLCBIZXIyIGFuZCBLaTY3 IHdlcmUgYXNzZXNzZWQgdXNp zqiqN7rlqxYnUJYMGKkkGZUz OWN4JgKhSMJYJHGTlYOii2Lp WAARVM67WK1yKXLetIr8LXkn CKQcEDCuCL42IVIch6EmO2Pg mkLujDR2yJldiLhkgiqmyYjv WPRunRRzEsgfqjHYeno8EMKe YWwgREFCIERldGVjdGlvbiBL mPSzFnUwcCAUYP99PS3jAMJ3 R1AotvdeLRlaSYZuzwavKADh C92wxSSlxFLFlWqyTNRvZYye oYacNXU8MRhuAQcxkBCgJDuy k2idAYFLUNWPMdvcUJQTMxBl azTiX5x5CgXib2WaiKy1VVXu l270wv3fvqG3SQElIYX5OXz4 DZDzMNHlcX0zOkF1yFArDFWb c2QaiDkup4NuAwAFuGLiVBKb s190pm5oTUBpvFKmmfHhnV4o ZNrqeylvzOEqLQ3oTNYlTVFo MZUlYJ64xiQpIB8doAVhm2fp xmTfsDEvn1AagZK0KWXaaCJa joekAm6vdKIeMLDbxdSDnyLo axPvMIWgoqOpY1PxgJCzhYH0 IFRoZSBzdGFpbmluZyByZXN1 dRBkNPGgSKQtT4LyynRuyhwc oL1pwXnfNZILL26aD9JMGVq7 wHTnuFecEYZyEi2nKAzUNmKz FGPrDVYYi3idAoHRNafgPVZy zB2oXYDDZGdlUHLaxRhqh42o M6crASO7SIJvAeQGNMEiDeLF GEV5aC1cFVwwEFUqCVVrcDLC GG9qYUM6ARDLO40kK2SZEIEk Y9McPPXjJRDpDQZwImEInwPn IFBhdGhvbCBMYWIgTWVkLiAy CDM3LvN3NkddBCx7RWC0DR6z CqhjFxAew6y4HQStNDl1NG2r izKoFbWkFMxsHQydJw6SFDpt AP7uUMGBT5QERKexBHFbELpp qTTxvtUZUUfbFANxjV5vXWOL WMvmTFIxy5MjyALvKUjqMWXb YWwuIEVSIGFuZCBQUiBUZXN0 eM5hSQjqYBWgGQRskMSYSP9u KYJ7RNHEN12yM5IZIMi8qTHm rOnrNNCStZSvqYFcPLvtH1wr liXIsqLmjX1fMoDmEDbdZCkn Aoh9NKT3Yt3bItI3HaCcd6y3 GGBuYQIgLB1GK29gRQizTKGw WEufUelzSUKnyQXmDQY0UHKT R28gE9DIZEu3lCRvgLcoDLAy IEVSIGFuZCBQUiBcdTgyMjAg NEp8X0Uoo6p0oVVySFZ3TyCy UCccEBHnvsPiiFzqFTHlT4Yl KGAoltCdlxGxrOSlqLJ7skFi XNB3nP0phpGtXDkftxVpiC04 zJ7iSK92H1efROZog1FapE1q joawSKH4eD1yJYFsm0syoxex TKLiOIErXENipKGrj5SeO9Um aQGqt1FtpY4nhpjnAm4hGGLW XJEiUVDfWUGrR34jlPMzZTYx PBKqJZ43AMYcx3o8vCCvMj6a cGFyXHBhciBIRVIgMiBuZXUg DKI9UaGoFOzbITXpk4WotZg4 FIs1AOOdBAYnAzw1BNtuSwfd wnCyqTtwICZeP3ydE1UeElPs IW34rYMsCJ3udDReIN3jRFW1 NPbgmW8vSXArPZSchAFyY17z oXgtjAVeVJ8cVQnjoXAnf8Ax b1a5mZbaLP9acoVrnBycpwNi NVPxw9IvcSasXAetapUzkDRe DUS7iD5lASUcoTjhPhHWENMq OoQvVDNnDhFbjDu7d1RlfIMp WAQpWVNrYIV0dVTzlzNfn80h aKK6YSLtBV5rlvOwUMBdoJWt ezpaAoH3vER8JLpnNGixRWax ZxCwl9VbjnQ8VMk6GYudbENu h0UerG7cCwZiFNFfEpRbdbHa g3j3PGJ7nH7diyWvBRfmhj3o PNTBTWDkywD3HPOeCVccjEc9 BXQbUTTsGJJcAJO8gENrvbUn bmNvbXBsZXRlLCBmYWludCBt QT9wnbGwUYLbgEUjgizzYmRo Sergio+SDOjIS3eXFmvrfRsnZOb KYQ0nK7nZIXaeRfkMMAbMLVZ PURsGjNdHDRoQr1cS1E6vLNq QeRxNOyeuiDhpLamUYQgxh5b r7TpbU1mhmelg0AsFuSgtjOm zD6at16aiNM8GLMkCF3umjDg HDWmpWXtczjiAkNqglT6QOLl YTNan3AgjO40IBHpfpUwjDMj h2KuF8PqcKEnEVOvyxqtLFFo FRpaVHETS1QKIGZql6YgduEt b03oA2TxroJmdM8soPMptDYr YIHgKIZfyp0hd5I6yG2qUL7a TNYjf2w4mGHqTVX6RHfnnJ8v UVY2xN8lZTCdvNmiDIsvWT3q ub0bIKosSLE6RXPxYBFvXeOx LN1kHJ7yCCUyXS6mFFgeGiW9 QN1nHqOvCEPjHewbJAD4AG2r RwKoPf2ePkP8KnMsOtXhRuCK fXNoqF47NT5byKG3NOUrd2Dq ULcdCXtbJPBbsmM8eKUqFMEd iwVcLMOnjmPezgCotXsjr0Si tC6poQDzgaXtr8HcwB0ebkqf dBQmc6RfB1WpnIRtALYhHMLo c72eHhLvOI6lo1KkefhyXdD2 BIsrkZNskONhqZF6AAdzSiY4 HBO2cv3xAunzDBBtvtB7dWHh fGVuuL2dRQBaCzSkVXHsygqc AzGbwX5nzCOdddOzYSO8gSHt jRLmhT3jwNbsxaOsbiCnpG43 XH7olCO3NTGwx3UnpxL0PDGr JRStQGXpVEXeUJ9bmYQsecPk YOOcpOJiNTEpa2NtTXrsPE7z ZSAwLTgpLiBFUiBhbmQgUGdS YBTdd8AqaAn2CQQoTCJrlLRc HTDxg0ZsTS3xBTK1KYIdPWVe HwmtBXKdoS0ht3U8PElzmxHb g4RnSTyqyQpcKgGMDLXghG13 HPdvt0WcpfPtPLsyvRrqV2nf znxoGWozw7K7L34lBMSoqfWc CEVvOX41zyQwZBIgeYYdxpli rQ5qhD6cBXhyfZgprsEmsAVs w3TmNxDGa1Yqfh6hIQF3uS4d XNSbGnO9KNhaFIg9ZVtlJrYO eDreUI6aP39pEIS5NiW1LjEv FDP5RHf0SHyayANQAZCheyJw vbW4LPxkQIHqTJVjDMR5YHRv QHXljKADWK0qEIYaPrVjXXQx FQU0ABg8KlNoIdekViY0MlWw XSwgMjAwMikuXHBhclxwYXIg OG3efL5iqWzkgE1wdTEdqOK0 tymlp5BzMSFocxVsuo6tSRRh deMcDFBcIfComeDqZWV2cF1n dyNrOuHusuGyv1DruVnkn3Te TWGlfmS5wSQgAlMobG3rcyEg jEK2BCRxJWZyUJTerG51tu7v dGFpbmluZyBzaWduYWxzIHdl oxCjCTgvwfBxk5VyWMPpLRIm k9MrrtRfDASwXKHbydUqxlhw sJpfPGUppSgkXUVcQFKfzy8s b0K8zZ6uOSBeQRGgsdKitrGe nBkhz7UqnG2agKDdiqJnqXRk d8PaJ5SwjYBeFIQdyLSvpGVh NMMmGYLqu1l8nWJhRENfYPQu GLytvTi3CQUur597bp7nduM5 PFJoSQqaA3y9DIOhIRcqJEDr IPDdvvKghGP8yA5jLkgjKCDo eKIlUGFDQL5DTgXsnOIvJJAM QZnewmSnl7DsdGd2VMAgCGRo PUEePCQpx3u9vGPwWIVpAKKa XWMeEI0bLYLnlD6naGiozlDu OZ1chZEtbLFjDYZiqZ81GSis oeBvBMpsCOzgljOcc9htCEUj JTGnVxWDZqIzxFFyXUGfsX7l VYL1WZzSNu0dWJesfwZfGUSz HCjfqPb7UXUyBEB8NQQexwN1 wROsv7HeivHpxATqCR5kYvg9 GL4iUIFiLB7rqfalYZZ0oMSe UXJaBCXnWu7eVCRasHqievEv MDamhMrguP19IFekiqXoTNfr CYwekfMih7wjSHWzAJBSWrZl mQBpSFJqhQ0kRKHfmGAxjRsn rGMlzHHhPK61kSyam1BlJ5Ms aCZih0RvcJUhYXGgYX9yUuw6 PGVtoyEnHDXwFD38noSnfhRt H71hy7gqDEWeGGPznYfyaJAz YOOuv7RfZS1wj5QlfS4bHLWz KWT1wUSemG2iMVmqedIuMUXw IGRhdGEgdGhhdCBzdWdnZXN0 IGludmFzaXZlIGNhbmNlcnMg m8y9wQZ5zUTmAQKrVWK4oXJx RYVdXBAuHZLlgi3mLA9hd1Av JHarTHVplKuqOwHkLNYya8Ab GS9hEFIns7vsO4nnLV8bWJ2a bISpOMkezlHxZ7PqOHEedHCd DDYlxO8hCJYxo4CanVXwQN2g jmPyr3vqmTbfsvQ0aaUBHc2h WNkedKx4WNZxWM5fXACeDipr AMEprGSmLTOORKeqRZ1zASHw RBBfOZPqhbXoexBzhj4qgHLt b806pz3uVN9xYj7yeK05RRNo MThzE77qbKLkzJVpATTxUZWz VMOalsGmDWI6rPJmvDXcdl3e tADyu453hf4mehCxlfSjSFBt el9bdcnfyRRbgMHtt2PrbVy3 RG1mTWKznqZkGWNsGQT4OBV0 qD9fUOWdz1SgFRSok0FoN6mj IK2ovJozbCKek012VRilggPr iaEypd6dnSGsm807vm9prwMw TAydJqXgr9JbqmMohFHrWHBw xqJiw83hsBEmEEVkj46en7Nt UFWrz2TltMCzNtuoAGOwpLLi OXsxdRLdv0qcu5ZkZ2ynnXmw bRN8CSYlZ2edhKRguHX0NYD6 wH5bVCvtveXcOQIhf7JpENFc UTIgVlY8cO0mLDJ1AuGBgTmz EEU0QjY9AIvrERKgCZ5cFDsb XDnrT5IftUYwSJCOXJLdr8cs L0skQSFrc0LdjZ0vsIJ8uIYo OSBrgBF8GIVhDPE7IKutgGVo HDTjNQUzcSPmbRTwWr3xbSMy J1TwB1duhlKvqHMazSX3bXWz WTqdwwGdQYP9XJBufV0jFV9t MHMfsTLcOR5dmOYgJVCsHUIb IFRiADHap9LwZXHyxh26RDCm DcmtwGgcBASbNx9tYy3yPMRh tfOmSLK5SnTTIC2jxtrzkHBg xTrpra1nJAidDMRZLJRbUIHt BFC6ZNHgcT0eTMI5xFB9UWW3 J5pfA6pyPUAtrlEiLV1eSAMr zPOslsAzCQdsJX3veSWjGAFp s8SrrvhsVNFhPRR2GUM6GOyg MZRfMTFrIp7lNXFarH6bF1Jh ICI2dfIlb2CuXuTSfSCxpY26 dSManh55EFStFVXkX6YiUFSl IDTqLSyfhqGfrDwbLLOmz58k pUPfyiYyy3QasaBiDIJzH0az SDEzoUSjdLWoj6RiyG3gfEHt gwKyOHE0gJPmQYVtzF2xWJCo hYcxGYEkzS5iE3HtXBsqXn3q NAIkcvatXP0sjl46ZI8iaoHf HJ6hhiZtGL86ycZbNpUxCPp4 BPoNLTeAPLd8NZAqoaWlwFWu mDGeJXLwwX7rsJHuYi6zuMRx vFzgWUAhdGFcHVcplGufT2ea lcdsEZhcaLWpi4CthM3jmWE3 QTV7aB0sAiDzgAGcyY== DIAGNOSIS (test code s2mktFYgNQByz3qsQRXspHUw = 3220) ZzEwMzNcZnRuYmpcdWMxIHtc cnRmMVxlcGljOTYwMlxhbnNp LIUriEGkE3CjwiabYFufKO6y GT7ksFlsgAWirAQtCGPhImCe m1kiv327tODyw1nrSRCIjkxh hYg5sJyzE40jt6H4OowsF12x tNNcWZR4HUBcXFLmrQCxCXGg MUE9NRAxzGNgV3yoAVGaNV8w nwyyFYrnLEsxEHLeeXE3FYNw kIQgA7NpPGEpNMlhJRTosie4 ZaHkSa8siYTggXueQJdbTQVl TDVcWNaqUQQkHeGuHQ9nGgJZ DCOJYYACDVeKDABVK8fXDBNS TDKSV1bSLhdhDLHsBVIfIIXm PKFxXV9lD7yUVtvxNpSPMETF FnCbEq7CTEPNDeLGBn1NCGqn YXJccGFyIEIuIEJSRUFTVCwg HohJVOPaH8ENXPTWF15NFVEQ YHzNPQUeIGDFMATJWS3PAWnx FXIdDQOqPYQaVLUpKE6xGG1X DQbDSfGCSQ8BHSxIAeDFMFJn T2AYN1fRC97NWSATPUVBHPAV TFkgVkFSSUFOVCBTVUJUWVBF XHBhciAgICAgICAgICAgICAg KRKmUXIlQD4fX7ARUMUBL7Yl QPZBQs1WK33DZYAjWAxOC4PM BQHCJCWCFLYHNKFYDWQ5RBBu VE6cpGZmZWQtKUKySLDoCORb AUYhJWTiCZQmZWZOGVEKG2mI B1hNLZeOJTGWPOrbEb8pSCqg ICsgMiArIDEpIEJZIEVTQlIg Q8VPBJRTEGCcpULnNOUzWDNo ICAgICAgICAgICAgICAgLSBN OKRFOXlGBXJVXK8TSOjhFG6g LN3MBY0ZJUXtORHMWIFqOEvB RidTXHBhciAgICAgICAgICAg OJWbZUMwGTZfBY0wHZlWKEwU NIqXXEpOBqTSRB3MPDgOIMLV RVNFTlRccGFyICAgICAgICAg ICAgICAgICAgICAgLSBOTyBU YA8DZpYGWpEBZCJIDXPKZpju YKsHLDkDC2tQRYPkgXVfIKDq ICAgICAgICAgICAgICAgICAg ACGCCKMPJMAJIIHTFYCOHV3E PDgvIP4FPMPMEmOgqLBhLYCr ICAgICAgICAgICAgICAgICAg SLGaLCIwOXKfZX0uFK5MCJCH FC6VOP1wD5OAUFAMW6LiQzKO F9QIIFuZJMsjUw2HJBeSPNet YXIgICAgICAgICAgICAgICAg ICAgICAgICAgICAgICAgICAg XOZxEECyNR4wQ4KONVUDOlPj MKIID5HwDvbYJZslNC5IILRO WQ2UGI9fK9XDTZVKV4JjxNQv ICAgICAgICAgICAgICAgICAg VLIbHSKhGDShNAIcRP6bKP1G LNFNI2LnYcTPDWYOYgPNBMwo KX23BB8qmENzRJPjLSKaRZEp ICAgICAgICAgICAgICAgICAg PEXkAA4kCIUATGYPEGuyOB32 AJ1jgWLkONNjKVZvERSzDBYu ICAgICAgICAgICAgICAgICAg FK2bTE6DGPEKH5LtQtH3ZQ6b cGFyICAgICAgICAgICAtIEJJ Q3OVTVGDGKHFEZYKSL4QXJSt KENMSVAgWCAxKSBJREVOVElG SUVEXHBhciAgICAgICAgICAg JPUNC9KDOCCOHEWQQrUHKs2N QSBJTiBTSVRVXHBhciAgICAg ICAgICAgLSBBVFlQSUNBTCBM R0RXGTBSHQcOEFPFIMzLN3fR XHBhciAgICAgICAgICAgLSBC EH8WT69uZvWZAEWVERBQF0EI DHibDUXvISTiCYVkNIArMV2q QamXVXYKC8TRSoYHUcMbSQML TXdCH4eoAQSohQXqROFjWZSA RUFTVCwgTEVGVCwgRVhDSVNJ F65lkQAuOXYyJIFrVTRmQUPm ESFPCpiOFgUGUpAHC7TkXAqU C0UZKUTnjxAyPVGmMUWiACHw SUUDDB0EP46aG1rDCpmnGDZx pAIuFJQiZEiZHHZKLK1REEAi JLDWL5xKYKGGBwEHKeXVWQJc DVTZX3MEJWU0VCLpEDYYQ1SC DPzpCHWdRPCcHPOqRYFfIV6n P80GNOwDIPACMS4WEOUsW6zT IEOHSEKWI6CYQEhHQCBSIuHA Oe2XILFyZS5nCTiwSMUzHBCm ICAgICAgICAgICAgICAgICAt VI8IKWBNFLSAXTUsYi1GLHOa QxQnAe1LZYJwobMxWTAlJVTe DFZqJZVuORMxABDdBT6zQw9D XDlxCSwPYqNAB1FGFYMIFKBU VdNYR22gLBVZB9JTZAnlFGFi cGFyIEUuIEJSRUFTVCwgUklH JUGzFgNXAWKNXBRWLI7XKZ3y WX3RACPLPD8TMU1SLkmCReie UAaTRFJTI30lmVJqJGQdZACo ICAgICAtIEZJQlJPRkFUVFkg OfTDHWKHFVNAC2BKMOblMLGm XJEzSCWiIRNqTM5vBeHYXWFO AlGcYz1RUKYCKvbNJa9AQHZb dDRpoRfahqRmBVpym4VdDFbb EEVkBW7lyUrvFOZhFP4pUZXy Z3bnxK3jubl4NqGoPKZvWuV2 YVRyatA0Ajd9TGLpOIaif0aw e3DtFLQcUCy5uYzcKlHgRVDi b5bxrbEnHrEgTUSjXZHyUUBl hWAqH718v7ppu5dcicRwcAM5 BXRwAPJ1PAonwiVmtaE3ZJwd fLCkZcJ3EGqbjpJjUDqpapYv xjFpFio2QAJrB698OXX4iNof m4enZXL1KSXbATZaXuLnXb4i dSWvS696XHSdBOILXCHcaNl5 QGJdmrHesmHugCVMl853M608 r5lkPVCgukCurUkGphupy7ca J893DQOohAUhkbTdHgUmUGGg mUPepCG5TYPnQW9ncngbLUik VCazZFFtgxA4AVCtdITjH2Wq MUAhZN7myurnYWV9GPyjEGTd RIO0HoDmRSTyl6Yaffw8IyZd ox9ocq90EMX7s0HpgLwpGFR9 TSZ9YlNfUj0rqKMmLGUfYL0d FlIavEJuDYEvwv75wJteDAqe CFC1EPSfbsDtb6Bpe8csXaYh caTeM3jaH0PvPAKjDPHzUUAk TnAlcxHtg0Ddo4MbmADmsDq2 r5ntOWRyXWVygGcyw8qxWAU4 LSDgoZRpD1vyiH5dBIFvXI7g uaoec4iwXYtdLPktCLEolUB8 bwV3LIOjqDLdR2YpaH9gJWLs UYlmVDNsyyp4IcVeJx7gdTXz eTcyMFxzYmtwYWdlXHBnbmNv bnRccGduZGVjXHBsYWluXHBs YWluXGYwXGZzMjRccWxcbGFu ZzEwMzNcaGljaFxmMVxkYmNo IZCeNVcdL5cqMjEjNtIcWhu4 YNFgdJAgKQPcMjj1GZCwbOGj KGKYrBwntV6pOJHwkGgnfJ3h mLB6HVKyoiXvbNOGoA5oSWPH oK2oJcV3LzOlRbE1MDB5SBFt cGFyfX0= COMMENT (test code = d4uebNBrBBXufIL8SeNbTLZq 3359) b0cvq0QgrJDwwFXxIShweSOf loYmwk04pRN9qJ10JH1nYQIe UbD4QBHhjuY5Nun3AGAwLABs lDHrM505w8wtr0zdvnFdtNL2 zAotFRVyyklcYwQ6CJfoLWMz qmzcMBh0PEppEDZneTI0BVEk rCPtS3KyRAUfLQ6xuwc9ANP7 PYzfNSGiFwT6NRYppSIoCUIc bKuwSZyyy366LDB8NnCkSWHf ckNepAozpB9tVpGsGVVAON5K XsRLWEDNOL8ZURrXDUFHP8iF P6kkBVOmKNRETN9WUIsWLeAN VHXDTtWMDAbGFs1GFuMFPJDI RVJBUFlccGFyIEFuYXRvbWlj RDKezNYnv4FwyCGqj7CxQfPF JZuRVTBeajJer2RlvMAvAQnz a9IfgB2quADbbHshWBW4ZGpp FxhnxIBucHrwRnDry2H8bQCo KMIpbhHuey9tWPmksVXhzEfd nYv4SGVqmghdcgLblTteDVhv KPNiRLuxeU5wp0uiKvDjibKk DDO3HBcoNZYwl0HmjzJ5PUd0 IGRpZmZlcmVudGlhdGVkXHBh srEXzQ6xztJzlInzWMusOMDj pGemMSIxTXRpkEOohTA5jL0m jrFcUMriRfN6bBWfTLvnNGGq ZVaceXkcgo7fIKPzYfboXcI5 qA5dURKomiVAKADgjR8oLJkm TmVnYXRpdmVccGFyXHBhclxw JXQgEJaYXMeqSq5VMHPWPS2M ZXRYPDHgqhQTq4YewGYnXP6v WSAvtaNzsyDrAFn7eSDoRI5z XAXsFFlhPIreWFLnQG76KXcs OqOrZhBgd42fj1VfwIjgLKab eZrpzArdce3eXIViCzZvHDHz bqURu0PctBIfQY9tSVCnb4l8 fLNdRJOwltVsfxWyMPy8fGTs NS7hSJSyKUdyDQgxAFWwgLRc fQ== SYNOPTIC REPORT (test INVASIVE CARCINOMA OF code = 5765) THE BREAST: ResectionINVASIVE CARCINOMA OF THE BREAST: COMPLETE EXCISION - All [id number] Edition - Protocol posted: 05/16/2021 SPECIMEN Procedure: Excision (less than total mastectomy) Specimen Laterality: Right TUMOR Histologic Type: Invasive lobular carcinoma Histologic Grade (Timpson Histologic Score): Glandular (Acinar) / Tubular Differentiation: Score 3 Nuclear Pleomorphism: Score 2 Mitotic Rate: Score 1 Overall Grade: Grade 2 (scores of 6 or 7) Tumor Size: Greatest dimension of largest invasive focus (Millimeters): 41 mm Tumor Focality: Single focus of invasive carcinoma Ductal Carcinoma In Situ (DCIS): Not identified Lymphovascular Invasion: Present Treatment Effect in the Breast: Probable or definite response to presurgical therapy in the invasive carcinoma Treatment Effect in the Lymph Nodes: No definite response to presurgical therapy in metastatic carcinoma MARGINS Margin Status for Invasive Carcinoma: All margins negative for invasive carcinoma Distance from Invasive Carcinoma to Closest Margin: 0.5 mm Closest Margin(s) to Invasive Carcinoma: Lateral REGIONAL LYMPH NODES Regional Lymph Node Status: : Tumor present in regional lymph node(s) Number of Lymph Nodes with Macrometastases: 1 Number of Lymph Nodes with Micrometastases: 0 Size of Largest Nay Metastatic Deposit: 12 mm Extranodal Extension: Present, 2 mm or less Total Number of Lymph Nodes Examined (sentinel and non-sentinel): 1 Number of Stirling Nodes Examined: 1 DISTANT METASTASIS PATHOLOGIC STAGE CLASSIFICATION (pTNM, AJCC 8th Edition) Reporting of pT, pN, and (when applicable) pM categories is based on information available to the pathologist at the time the report is issued. As per the AJCC (Chapter 1, 8th Ed.) it is the managing physician s responsibility to establish the final pathologic stage based upon all pertinent information, including but potentially not limited to this pathology report. TNM Descriptors: y (post-treatment) pT Category: pT2 Regional Lymph Nodes Modifier: (sn): Stirling node(s) evaluated. pN Category: pN1a CPT Code(s) (test [id number] code = 3357) [id number] icRmar23fBW7wT98EA7wPCKm IhK5MFYdeeF5Lem6ISYvVLXu kBZcG124k4pow7eszgQjfQL8 jPhrSGVckgaqXuA9NZbxBCGj egfwNSq0BFbsFWTahUX5YODp yCQtE0KbAREjIA3ojxh7XBZ3 HCvkOBEaOaA2QROcfVGoEOAh zUgeTAldo299TLQ2IwBpHIXa smGrkSllyJ3zXyUuVOORAtW7 NNVjSfT2ESVcoAFvTKYeMCp7 LnE4UTvvEFjpGRwfIiicmFDj ByN3RYX5ZNK2SBP3QPn3RHl3 AGpqMOiiENAzIe1gUCnhQYGx lWPfLWDqtpMCVdH4UXSrZxF6 ITZeaMNnVZElGDh3DzJ4FEkb MVxwYXJ9 CLINICAL HISTORY q5dgkGUvRRLhkFO0OrSmDKFt (test code = 3356) y6lax5LxgAQmkDQeSWsgeEOb enClle39uAB6kV43NT5xCJFz SnH9RPPmfoI8Hlv5NUHoEVSk cMWrO580g4kdb8vshhJouCW7 wHrrQIAdiowpYkG0CEqxCXXk ftdjFXi7WKnhPLAnxOH1JRFk nEHxA3DuYQJxLY1kupr6FHX0 ZPapZXPoYsQ5SCFbzYZsEDPc mPqfSClhi084YZE1FyFdQXLy ciHxqSujgG8lVmMqBMRXsKee vJCzijIfs5WhS3TfG4SvLIQi n1Sbf8jvivXnQECfcLQorlFz i4BagBl3BLfyQIU8 SPECIMEN SOURCE (test v4wnoYMtQFBozID1OdTiIXZo code = 3377) h6tuu4FxvTJelYAzMAouhNAy gdKgcv81yWS1zK89CI2fMMLq IxE4LHQsmeK4Fqh5QFShNVBl dLLmH022c1szo0wognFxfMB5 iOkdWRGemcwiYyX9UMddKAMa hqucNNu4VZjkAFTxcJT0ICTw gUGbO6HnISKmDA6feez4CWM5 XMdmVBHjCyU7ZHGtuIYdBDKw dPshAGdvt130CHM0IqAcJRLa uyXcbCexjL5qErTdUHLOEuVP ulNbv8SvWPNrV7v1EKSbkL4g cGFyIEIuIEJyZWFzdCwgcmln yELhuMWghUWbeT6uzCloSIMa Mj0qNyEnDYW0YVAuNRS8VKDm w1Q5IKpjAUHsYK7kCGbrdBnl jm4yVLuydhkxpYZgm3PkyUgj ZWxccGFyIEUuIEJyZWFzdCwg goesaRTmkoU6QZP6bUBcqI8x OK5psK9bsBHiuM1jGX2xhkoi blxwYXJ9 GROSS DESCRIPTION j2iqxQIgCGWzdCG1OuXzMDFs (test code = u6pqi4NhsQPxpGWaZTkcoIFn [id number]) kcVhwz37pRF4wN53UZ7nBGAi VuO9BIMvgwO6Qll7KWPbGASc lBFoL017w6qtz3kizeMxsEE9 RNDmOJLsV8UgKC2aLUMqlFUv L65naNSaSBN9ITBxUQYsxIUq FWUmVYN8XFVkgACgT3izNGBt GN1attiuNTgkJIkxZHNcuVB1 EQVenXWaA2AtNRAeFSqwFIWa lnq7XaOyXe7lfZMvrSiaFFxi NYNjw1mjJWTyeJZlSYI5MTuf gKRbUFGcOBQmVZq0URLrKYuv rNXpEF7ztBoqVqdgwFowg7As dCBcXGlkIDUxMDAyIFxcZGIg E5MZPZWxHqFaGcenBSGwLWg1 NIiwL1YSGKRnFEY1BIAsLCSu IxR8NHn5RZUUQc3yNZodPKYu VDgnRXC3SkF4NTqwmNEnECoj ZmwgXFxmIEFyaWFsIFxcbmN9 NBHaVJuqIMZjNvLeGF5uTmRf ERY8CAFKrDfrzF1ieNFkZNPg MgZpIwAlMPc2NVWzVrGeu8nc wDAqDFglFNK9cJYnBUIoLBDu GSHbRU95HWguOMDspvYqJNiy bWVkaWNhbCByZWNvcmQgbnVt XzOoZOZfTNImPzZeUTN7NJRf wYqfqKUfvWCjWFC7HYfzBz57 HLrmZYUdgEStB4mjROdvyIHz r5PamRDddZfibPCog8Socuqd LXHahNVfRRWvjG4hXYavhSFq PTPzRZYQpTDitK8thrQwrvYu CATdUEnvcUAdIGY0qW4qKBLe EV0ePW0uECeje7OkMVmzd7jj uoXxKXRvESjgKZ09zTNwSHNy CLVIHVTpHTEgvaZzsFf0KNKk CTA5pC8mfnGstePoi5UzrZz8 pCWiBCneBVWhMqkkWKBsQ2Ix B2JvgmYsiBAgQPRjsvXpi6tv SCT9SKWzrXYwcHMfAuMaJbwc VWB9g4bxTZCgyCOeOWW8SNpw aWQgNTEwMDIgXFxkYiBPVlIg RcMsYYYnIwA9CoO3IWn5IDSS UlDiRnRxHtm9LoQ0OXEdKMv4 UOw4XNmXGdM1VQFwVVhqNsJi ZBRgCIFfOCe5CYPwEFspzYWk SAUeERFqUTnwXSkbA50fKaIn YVKEDmXSpfUto0HeMOBeZ8g8 LlxwYXJcZnMyMFxjZjEgUmVj RJa9QTKcStIfy1zcZHzfSaFi HZPje9o1vYK8sWTifVA9dFEg yQyhCA9xoOTyYM5ANcUzzbVg ImJyZWFzdCwgcmlnaHQiIGlz PILfLoSiWdvzYZ57EGDiSWua zSSnxwagsaN0khWegzLfqnho ciksIDQuMiBjbSAobWVkaWFs IHRvIGxhdGVyYWwpLCBhbmQg CQ46ZGFhNTbobnQoqslpklU3 kjOzq3H4PDTep1PoCFWshcar h9BlcINgV1NcUZVmNDEyUJFr qYIucA9zZVP6x597QCazhCzw TGNalP9otCKleFv6Z0ueSOUh aFjuVLJsjlljbEubQFY0kBEp wZ5oTZ9pmacbyhCgrzEtCFAq z84jMHD8tBFdlHBtHJJmE77h rIbqFrL9gKYzfJK2QHKczMPu IJMutN4gUBftjR8rASwmrkIs VGhlIHNwZWNpbWVuIGlzIHNl rpjmcFg8UIBfR4Gyi09aIQIb qg4oFU8bJVbndXC4saGaYYVp xtLkKAmhuR0iYoVtrBvlVRKn MPLtNSIfAEgyHKXzNN0pXPKp GJHsJjNndXCgo8NmhiM9xELd NUDjY2VcuRIjcVWcYY8swF3l AVMnmzO9cTPyn1RfTTFtd8Gf iM3pdYXzcK2oOQPkrSClrTYa TbAomWzkPTE2XW7bWYF7ecss ElJqMrCyN56jQWT5uKBjcN8b MPEfDEnsMuMyqT4gJPrnMF08 PQOuUBdrZNJsOWespC1ktNP4 ATMeeCqnYLSkELRpOsCpR47y YSSmrMYokJ2hNXDnRXNrj6Pg elquieweOWEeJZIxdGYxp9Uk QsGypjPcWVyaQCheB1G8KUWz CH04MRJlZORao54jyWfkTYL1 qEWbaQ1iNZUlDrrpO96tFiRd nUY0rXFvxT7uXHEpk2MuUGPz QENjuGEyzo3gQFSmJHOsQKPm JCzwBXKtCTBwiYWsyi8dBDDd DURgTPElnmHyKFNyFcAfS55s CuWczAN8tQArwY3ikQWfyO9c SNRkfkVhPS58QYXzYLEej86i bYppHUThiLYyxP6gIL9fhzur kmZsBVBeMSNskKFdpW2xmmMr etV1NZKxfVOvIWA1wIZqprZn qK7mxmSpuSPoioTnzxFxJRDs ZCBhbmQgdGhlcmUgaXMgYSBt PMYicWuaNiBqcO7pz8dbZ3ka oXRfhuP9xNDpYcjfur09zQEr TWWpFGPietVgoWdsWWE6Fays zH3tSVbfweZlNPenQROvyIQd njojPzT9oIAanVTwiHCmFQSz QVVqjXOko9QyqIpaq6CcPJZt LFYxWHAbXrmgze21tjS7yPSv vATfMKLctJWqq3ZyrXT6zBLs NTMcN6Hap66hDSCdLNUamLMg cNT7FVUxELxgcsTqvDbcUSTA fW8hKSyhIIUwan9vwTvmXqZ3 EdW4GtFjCtNrTKDcSNkqY1vy pY5lRNdpdrUvTZ6mCLIdGUW6 XGcxcuQyJlw1RMbtE4DyTRVr t5TycBevSXQNHPD8NMnpLbQn uB5gSIjimtScAbkkP2w0SUNf a1NlzfnfrfhilW7tBOgmvMcs nebdKR54YEQaw8KdxMbhQKbb dU7dJTLbE5Qcc75vE93fRTat bFazUYILTJamGSRdiWWuPK0j cmdpbiwgcGVycGVuZGljdWxh iuVzDDM2hH0clmwag1NaGQTr z9JwDCCzZAP2NW4eENImmUBm IUMhbTusBIOCGx6IPoxrN7Xr MIOlo8MtiVVgZwJcLiFvlIzp BEZhHCpbhkGmCzGwYuX0XYGw zDoeHVAcfRbrCAZeBCC8Fp6h dYGaHPAgZAC6SI28iLDysBqc ZaZdzCGzpQHmkouicuS5byTl fdEkpgkxskoxeZcsd0TdKOMi tqCbSE34DRYbJYIkKdRsgOmz VRPgNADndHmqMVXNVrI9FFat iCU5g49nIVkwyIfsBkelgj41 xABjjDnkk4DmJKKvTGV1pXGy vK9yKJWnNKAxm1N6PBWdr5Ip gEXmQ6nivrynGmornYZ7JKBe xUUne7p6GZvce4cnC2TxNUxd mB7wKLT5HFmkGjkzbw06cIZu IIVvDBR2ftQqgRKzvujgpw0i obMjfdbyvwAaSECihF0mGHMg rAczZDI2MEsbeyZcQFm5GNTz ChPlxDbbQNLeMBLtjM9qDN73 OIYkv8CoXQ7nGNKdd1Zouwdb lmHiYKKqzP0wRZAvnWuyZUU5 ALjwynPpCaSwXOanKW0hABEj y8JcfNTuZ9saVX7dUZAkuPYx IDRcbGluZSBCIDExLUIgMTIg UaO6oTCniVXwPBQtHOArshFo dZ4cXnedow44pRGjBASbGCE0 adWxiqOyqOWhQIP9lADlfL6q B1UsxNVjnL0oB3Zua1Zcqkxc iyDwARHhcL4lZINvcFegEWF0 GKgvynPvToBlPxjoEN9cXREw q5RvpONwB5wyFR0xZGXygFFb YQUqhIjyLLYZHZH2RxHXDNXf FUNjrsRyuIr4LXMmKqIcTVPb hiPjPP4fwkwepcmlhDIqmUXp SQxliFnauwLmBKV0oS0oviyy u6RyKRAtn5MqDWXpFAB9IM7v WFViyIOpZTI6RCHliUHuMNC1 IS6jTOHqzfvlPWTwIDLkBVR1 GGyiqW38zCPxIQYxTEBypWXs cHktMemffBoxk0GnnNUfMQeo MYWmBTDhICcjJQPzW7YOVHZv BkLhFlwnHUDtDZi3PIydR4LR TKAvRPO2FFR6SMF1QwT1HIt5 AEJNZw0tEMbaWoY9DZO7WJA6 DtJ5MYmjiCFdUUxkOavkNCay DQFxoNWvXPzhhxQ7WPTfSkLp W6MmFTNdWIWpNAZpwUnxCRNn cF2zfXTdGTXaRqXhGzChTCd3 YETtGzZvr4zmuIBvLXkfTVJ5 yEXnEEOlDOQoQXNwHA83ODqo NHMgbmFtZSwgbWVkaWNhbCBy ZWNvcmQgbnVtYmVyIGFuZCAi VmNbMTH4GTXvEID7NyRxmwKz POJlTCwyIWNxNAQ3MLCtTRC8 AZIrTmAliQX6gy0kbXCicTUo XQSqbhTya92xo0JrDswrpb2u FIpfk2TlQSHud9L5SQ0fXBMn b12ifgYlJEm6ZDDkvA6wkJqr ESByvNPjM69pwVEilaNrBDxc UDGzJVI0CNGiKGJ9MXLrR26p VPlbruDaTPJkPF7bMD13kFUt gTimZIgmrS4qhXBqPAYqogPi t0gtFAEngAhpu8CzZcJoWNmw SHZpdwXwj09nw3WuXamiex7s BHkti2RdFYEwx4X7RNLtxdAe LOTzQSijiMJhVQM7bK0rRZYk gP5uvlP7UTFfRYMfUSDyuQBk d3FhFNXqk9H0LCUhmwZdHmIi EGWisTJwn9CsdFvzi9VnJlSy Lb6qB3Igx6TcxBYkyJ0mivAm cmUgaWRlbnRpZmllZCBhbmQg yTrsJWVsgW7mRLCHWRZzPGOo xjEnhRz4FOGpXAE5rY2hfsCj wsRhf4DudWb4xTZfKBqyQUNz IKHrQbwxOCVaS3KxF9YzuzVu sGMaKTWtpiIjg5iiZPF4XQUv mKKpmEUbRvOmWwqrJKU9p4uj YSOqmXOpALZ4HLofnZCqZWDg MDIgXFxkYiBPVlIgIiAyMDMz BfR3DoP0DMm5RUGQNiUmJsXh Xwh8TlBiPpftRZy3XPa6MShO BgW1EQS5WpI2XLUpVEJaDEGf SZg5PVOzRJoetGNbWWQvIXZq ZGyuYGouR93yWhFgBSBXRyAM uI7niQACc4TcVGHQTG73mG2l bCwgUmlnaHQgQXhpbGxhLlxw YXJcZnMyMCBSZWNlaXZlZCBm cmVzaCBsYWJlbGVkIHdpdGgg gKuaKLXxpXdoyjFdX3L9laOw VH7nGDIzZUOxN4ZySWBuR75m ZYGqtO4wVEBpQV9rYIKazX7b iONpe6LpOCQuZM12dE4sbUfv cmlnaHQgYXhpbGxhIiBpcyBh KZEgXPY8NIWjCQZ8KVPsLSYz uJTogO2aDPkxYPWeFPMkKZT2 zRJupIduCsU0EWUhiOjuR4Uk ZCi0rTNwNG9vCQSstAgujCHp qzN9lhqrAUP2PNZoZR9yOLWz cHewDDn4ABX2Xn1jbITuROKa wuEGGL6KYo51QWDjwSSvJKZ4 QW7dHBPuiyrvAXTmGGMqKUG2 IEmbfV66yMMdAWJuLGVtrDDl pGwuXgegtScuk8YjrZMmHBpe NOQkEHIjQPuqXEWkG7ZNADTd UqTmKcgbKFPoYAl3UEjrJ2QV MMZqWWU3NOY9LbqtKeJ2QMt8 NFHUBc1uFMkrCkZ9BUU7NEI3 WfD8WShclYErALacLnibKEip THCzuRJjTCylzuC2OXJrKvSd BV6cWzAyPEQ1TRJHlPnveO7g lNLpSIOtAoZxS7TbGQCxH6Yz dmVkIGZyZXNoIGxhYmVsZWQg q7z0jTN3lTTtmVU0nJKxpXkf FlMwBW1fyZWuIY9xMLarLBvz taMxa7GwCV27iDZzalLjxgZk ImJyZWFzdCwgcmlnaHQiIGlz FONsLw20TEsmKaM8CWKvZRZc sKRtevBwG8CqPECrrH2okHjy djRtBbW8IUfnq5ilc7fomFPh Xoflvd5lHDshf0IoQDJzi4W2 GV3nDPQrQEUmOBjsAUXvc8Tm hUBeWMKil8fhvuG2tX0rUUGw IRDeGVdiy1EwTIWka9GfeO1m xYNxmX2gQY9bpuzfyf4jJEBi UOBlNSIkvV1eoCCynV5uYVKx Dfd8QZavRW6pSBAyNNVnbAZx mO9pdiZalnIqVCJrWWmvqIWn QAV0wR1xPQImfV2pryU9ZDSp XLArCYAxrVQwr4ErFCIdm1M0 FQFumpPbMIAdWQCijECwe5Wx eJvyx1CcBYoxsFsheo5wR4Md i1ZyvGMtaL2jpy3hTXJsQQJc uTNcmM1swoYkvmEehqDtnrRh lRYeaOWvjTP8YKBnBXkhuhIa nEluBEXWEAH4eI2xJWAeKYR1 QYxjpcGvCVI9GT2tSABqmpRq RHOypsYvwjOyH1XpVSMff6Lz qTdrvtDpmBvbMFLVYy5PPVzl Oz6xjTJaDnLfyNQcqP1ykpfw b9XvbYm1bVAgUOYebNNsnlGg ALkzgDxivK8wDEN9EUC2PdNF wFZkt9y3ZBWkdmYjOMZibkZe xePzD2SjFVXvd7QwmRplqtZr dWPeGJFcunAAcCHms0GeRZfs MPCfJVHWVIAxBKAMFLoEO1FC IPWmh8cqyRekl6GkhLViPH50 XNRfcZLxFJL7ZJ2riKlgHDQ3 INTRAOPERATIVE o9aynBXeODOrxON7ApDtZUBq CONSULTATION (test w3vut8KgnDIcaXWaGRpstLOj code = [id number]) dnAdex96rUP8yT60ZY8nKRVq WoD0NTArbuB2Fbt3XNAcTLWu lFVpY620x9jvf7dgtaGhsLG1 tDtiDGKotzggIyG9DPdkZUEx xsedAMb4LMzdCAVmlMY9AJAy iLRaL4TrPJTgCR1xfab5QJS9 BXfbPYZkQqO1IYLxqVHwQFAi nShlHTrrf063JKT5UdAiOKTp deG9AYzbJXEaX6UzV9ChWFso CUM9JAYeSIOsIQItOYWbZJNh QBxkepS2h8gdDSWejIIqAUY4 IFxcaWQgNTEwMDIgXFxkYiBP EwAsXoBvPQO9FHb4DbS4CTl3 RYVIOfJfXpFpSch2LwL3EJGa CJu7ISe3JYlMUqR9SYV8DGKv UgDmRYUcVHGzKAy0QYPjHWna jSWmQKOoMHWjWPdoZNsaC79v iIocpA5aOaYbUFIJBaTNfiGg e5QzRYYtK1g4GzasZRAsMjEq LBPYWtADP0VvCGKJQ5lCHIJB KyqgQ1HOFGSxF5VNFBBQEWwV VLZEW5BJSVs9LSkubmAvHMLE NP6ITSZACRnASPdnBNDTIMFK GM5IFL6LMIMBEEQIYCQLH4TZ SKPBICVUDFTNMX3AWTWFRBCA Z3FMHTGYA3WwSLJHBMMjsDvn NTctgB3iSOBpfO4uyGMtHMY3 IERyLiBOYWdpIHRvIERyLiBC z25vQpBzJP7wGGCgAITgIzEg JrihDJDoWWjkIr42TASjlEZh BUQ9QW1liDlaHTZhT1KsK6Wu kpF8OZUqjd8= MICROSCOPIC n5eupPWuPLQtuPY2GzKoWYKx DESCRIPTION (test x7omy1AqjDFpzKFaTYticIWu code = 3582) zkPufq02lBM3gQ04QT9hRWMr QeU0TURfrpU5Grh5BHPrTSKu qTGdC533y3qba9ktggSckTD0 lCwtMHHqzjudCsZ1GZisDQUd ajaxYFb1FOhmPIOjuCE3DJLu xSJoT1VkPWDlYU8lidk7XNQ0 MMwlLABeYxR5FRZewEWpSPJf bUeyVGrvy304DFE1DeUdDEGp zhNzsOxttV7fWeTkWZAVNZWi CVZfyuRwym0hSE4poHQdvL== SPECIAL STUDIES (test b4eqzJPiPMDiy6heMVJxhKMa code = 8216) ZzEwMzNcZnRuYmpcdWMxIHtc xjYhNJthv2YhH2EbSnRpVBmn bnNpXGRlZmxhbmcxMDMzXGZ0 cqDuGHTvRKyeCOHdYGrzMe9w tHVasSvjDcToWDQrl7xbhmVB eayqqXi2q6zqVTPzBzZ1jTNu ZMksW0qsmhWwcEFvB8GrpFEb zAj6f5deGtZkGsO6aTLkBVjv O9mrgiTlbMWyWALtRIt4pM39 ZEEhdJ1nvQFmNYcjxuMhRiT7 IBmrDTIfMwY6MVMcmEYyREUr S4hgSXRaCUqsKHYrSEdliNQt HXT2rUqnn6Q3yUQicPFuxTzc TqZtKzAtVlFZo1NrPGr4wKqb C8FcJXIsNpY4aSXiMZUqTMps XPToYBIdrcY9kJvuamMwb68b eHQyXGYwXGZzMjBcbGkwXHJp WANAb8OjiMaxPJO3bQo6jIln AgccWEO1Mhm4JB8ovx18piq2 vQhiRMFmvxfpHhM0BLtdEQLo depuNZi8JJqsCDFoySP0VSLr lFWqZ0FbEPIrAR3xylx8IMG2 JOcvGDVcKoY5KPPzpOWhEGWl pWnhAFtjt122DPN6UbIkXC0c F7Xer1J4sK2lzAVmEPUqyHSm FxRtCKVkpf4oeLLzRTyjw8Vb RUO7ktU7gRTqaOJbGZHbLS74 Wimia8PsDvoti7YtA60osKL5 AQbsy2iwOM1oPvS9slGiYWxf j3uffV7aRdU0OLvaXT5iCG0b FFTkbZ7carfiSQSfJpYmuqsg DMWtkAmdofDfWs2oqXrmYHS1 AQmbU7okzL8rCfR5VFjiD9qq wG0hYTn6TSuhlXR7QBYrhP9e YZ9tadoza4ynJUqnVOxyJWSt jcF8juD7DHMogHNlJ9OswR8a LDXwMG7adsmco2whLYG5SBfm HHAiKYD0DnQnDHMrl9Vtggt1 OvRdv9GgbVLcINkqB56xs652 WKAqpxSpM4wmkMDzqchaeUBh cxrvDKtfrcO4GARjXDQwUKew XGYxXGZzMjJcbGFuZzEwMzNc aGljaFxmMVxkYmNoXGYxXGxv D6imLzGfR8BoBUSgJbHnBRwt XGmcsRZtdAUraKF0aI3eSL2p ZCKkhVWuZ8BtKEIlqwDpsMMc JGK5sXSzdBPvKA6lJEsfwATx l4dda2DiA2feoMapuCU9YR7y MFOlSMGdIOfxv9KbjE0vRdmx bGFpblxmMVxmczIyXGxhbmcx AHRsRZsrE9aaZeHjOJAheOai IRhff3UpGDDaQOKlIjovzcQt IJs0ekXnTHIuxhhtMHWfvHte kQ0kTnDtHoThMcwoTQ5mFNTi H1zshZBaVAUwWEXuO3gyCbKz zQ0sfFvpZQtgDzVdQtQfOaFZ r516xl9gGTFqqECgmhSOaJOy fM9gMWbvPRdhSUvskGIgIDlj j2xoBZPax5y1lAUzVQBbgsAt c6ubUZsmqcJpNGOptBJwuEYs GAMuo79xFAophWmcqOiwMQCf y7InxUrrf7XaNnByECwjy7Cg P44zmZEmmBVufYtnHNKmqrYy HJDps53ci0ujGHMtVxE4dJQl kLN7iXRmlGCgd5TkpPjwISJe s7skMUWqxg9exzihtJWwj8Tu yP5rswvlATnphJHusaMfZEHa i5x8bOYzQOAdYGLoZNgifCf5 HZFed413cy9qitF5iRGlSCQ8 YWlsYWJsZSBhcmUgZXZhbHVh dGVkXHBsYWluXGYxXGZzMjJc bGFuZzEwMzNcaGljaFxmMVxk BuAkQHFiILwyP3nzJcMpJ3Cc HRVjExPcxIYsD0hwjGXbMRBx YWluXGYxXGZzMjJcbGFuZzEw MzNcaGljaFxmMVxkYmNoXGYx RNpsJ0btNhGwN8BjGRTiBfOz IFxwbGFpblxmMVxmczIyXGxh qyidRASuEZwuT0axBiMhASZd pZlmASshf5ElCHPhWZHcJycr prBcBCc9ugPdZYEavdvccZYb blxmMVxmczIyXGxhbmcxMDMz PXqeO5ujAvTeUMHqjCjyVLgf u6ZeUFXyWXXsOwmkxaOpTKxf cIOau0kmw4YdP9cqgNhxhIX0 XXStL2kzoZFflZK0EGN8bE2v LIpiboRrBRDrw6CsTNZdPNUd DnR8eD7hYEX6FxUVbSziWBNi YWluXGYxXGZzMjJcbGFuZzEw MzNcaGljaFxmMVxkYmNoXGYx JGkuC2bzNtYpF2IbWLUdGsOn vNnxAIjfJMx1VlxunUWbygea MVxmczIyXGxhbmcxMDMzXGhp X2fbNsLmMEFivDrtWOoqh9Lb XGYxXGNmMlxmczIyIHMgTWVk fQKnxPIBTX32FNEtTLUqsLmz jD7uyJGVUTOqkmJ4a1M5FUxm THJpVAs9UTnzkfOaGVTyqE5t CEUdWK7fEWg4znCvXAZdl1Ae LY1pCUFnkVYjHQR3JSSti6Rs R5Dax2JnWCMzEZWvpr0qurSi ViXUaTStIJAbty34RMNgKG1o H5vkEOZfWDXpxjJdwJWcb0Lr YARoqRA6dTAyMI7VDxLCp41q IGFuZCBEcnVnIEFkbWluaXN0 huS4gA9vXeHBqRWvCoKKPKnb bsCiQHGkwk9nziKyQTCoURDf s1MqfZQkmQFopyOyG9Uuw9Bc DRGlhk28QVmyiMWuka11VP3n Y7Bfk7TjoM9zPZyuORSck2Ku qSKmzQMsDWJze1EjH7qkqleq DYcufJRjbS1vLUFgMFo8FXJu y8OgKAZsp1RzZhTkzgNlPRJh SKJeAWJksG64USP8iKaegWff ovRxAR1hRYGywiYoHMYeYXXa nT1pTDlaqcHySRWxctU3n7O3 VNvfIOGxzkTuDokoXIY2rpAd seG9gDMfY8wfwojuGYmdRAFx k4CwbG4pxMGNdLHlc4RqgAVf zVFKrPDgAL4qxlPyWL0ePKX3 ODggKENMSUEtODgpIGFzIHF1 YRsrAwxbEOS5kzOfURClu1Pa KKhoQ3urW33ghDjefNc0nFQq pHyllEKjvTPuHWAzovE7x9I1 TEZee0UizihmMDByYFspXCCf XGZzMjJcbGFuZzEwMzNcaGlj kXrcZuanAxWgHAZlIEdeW7ka IdLjPbCjWbxgLEE3zI== Gross assessment was [facility]'s performed at [facility], code = 2777) Department of Pathology, [address] [place] [address], [place] [address], Technical component [facility]. [place]'s was performed at [facility], (test code = 2778) Department of Pathology, [address] [place] [id number], Professional [facility]. ke's component was [facility] [place], performed at (test Department of Pathology, code = 2779) [address] [place] [address], [facility] [id number] 15:33:13 Test Item Value Reference Range Interpretation Comments Case Report (test Surgical Pathology code = 104) Report Case: [id number] Authorizing Provider: Zo Gutierrez, Collected: 11/12/2021 08:48 AM Ordering Location: [facility] PERI[facility] Received: 11/12/2021 09:07 AM SERVICES Pathologist: Sisi Amador MD Specimens: A) - Breast, Right, Right breast skin B) - Breast, Right, Right breast lumpectomy 10 o'clock, long stitch-lateral, short stitch-superior, ink is deep, for inspection of margins C) - Breast, Left, Left breast tissue D) - Lymph Node, [place], Right Axilla, Number 1, [id number] E) - Breast, Right, Right breast new superior-posterior margin, stitch montalvo new margin ADDENDUM (test code = [id number] 3381) b1ltj2KwtUHopXRsNXlcaIIu oeTfqk47gYN9wE62DE8cCEBr TnK2GVZpbvP0Zsw0IBOiFHSp iVQlQ230y2wjh2wcmhRtgER1 qPtlGKCgqrgpEgK7LEuhSRNc wglkIHg7DDlyZFYryIN2KLMz rREaK1LlQSOjCY6pdvf1DQB6 GBosJFCoUtY7NQKksMMgGJUl fJwlQHitf877YMB2JoItGIAl pxPjcTxstE4bLaJmUEVWWYSN U44uHr0LDJRTVAWEFBUBXpMR WzDRYWETWkUlSimDPXKXK1SB UyBSRVNVTFRTXHBhclxwYXIg GndPAXRLU2SSMqZJXUNVO8CX NYEaV52hE4LHGAjLVtRXCLEt BDYairKBV4VRG7xHLeHYDWGG RCKCRkyiLI1WZQPQRnPytVLj KTNqs7EetuIvz11tb4BuiiE3 GQOaWZrqFSVvXT37WF5xiHK7 DDLub4GoAeRwHmMwlUTvWWCD XC2VSam0HFb4SLITI8IGQHaB WZlzS0CXO14TVGoQQYBUE4qR IUYcCBkpWTMmsOQnIVQYC1xR K6DXQe4FZPAFOAVLWAOGMmfe NA3BI5TTFKEIKPNqtyIJra7u i7S5rG8uCFIxe1HbQoVxPhPp uGNxDYnwjZHeu6p8oBGvQ58v ENvmBB2lOFJzoyPBWV1DOOIU JhE2JQObVS9PHLJABsRgMBmX XIjrEY1CMM9LHPAZICBgkbaq FOJjUQVELJEnL8ELNt1ZERHW DPBFED5OFyIHHLcMXItTHOXo Y3ZCYwN7TGGlYPdnAHIrmPHz FZvuKxkiXLVco1zhCgWqNMSq u49crFEki6QwCGteHCJXAyYC YRCCRMVqHLndiISxi4KxJTEy ZZhyjXVsGUHlhxcrJOEgY5CU NZGPO0JDRUHFF337SKTGUKxX WQlDHmHFBK4HHAHLEuPZAT4B WODTBVDQKYWFS9YEY21GKuTc qBMcFLYumDgrB6Rhd33lVTS3 ZSBhbmQgdGltZTogICAgICAg LERzBEZgNp3mZD8dSDTlEoJs CTA1NDaZO9cgILJzPWctP3Rg ZUvbZGGfqTO3qDUpZAZurRLz BY2wJYUadPF6DOYvYDB9MlJ9 OyQoPeS2NDL7GzHhLAVMRBAy uoNJCT2wevKoYTSwl18dUk3r xCSoaI7fXKJ3IRIoehZhtUbl ZTogMDYvMTcvMjAyMjsgMTMz MCBIUlNccGFyXHBhclxwYXIg RWS7gZ8lv8okW1f3WCMfmiWQ oKoyiFtrqwL1nLBmKHFxSHIx OA1zvMu9FTYlq0L9YZM1EFFz Mfc3OQCbdT8lHEJyRH4fnSMn ITwxPwUmMoUpRVNzFz3umNEt kL2aLq3fXTTjgXwsdZ6njCTc ErAxrWGqRRLbcON8KXqhvESj DTJxDMMgx1HtxK4eV2AlJZVy XJ7dZtIdhW58avLeFMPqcxek APKzFA64uBGcREapHC3rEYFa f7O8PE7ocKvtDO6nm4w0IuJQ pxTkUt9dzBCuLOIxefCNOwkj UGdSLCBIZXIyIGFuZCBLaTY3 IHdlcmUgYXNzZXNzZWQgdXNp mhydC0atrsElZIPXYThnHHNp QRK5BoAaUKWJDCCZtHBbj7Ys XFDGUG32CS5wSZIyaDp7DOsn DCJyRJKwME56JFUcf6LkP7Qr baKnfNY7fMeyhUbimfexrCrk PTYqkAKmVgwidpFVsmp8LDJx YWwgREFCIERldGVjdGlvbiBL bEIiWjYrbLHSSW68ZS2iPDI1 D0KpgpwpATjaVGKorgatBGGq A20kmSIthVJTiEkoBGJvFTld kBywZCM8WPwoKUzjfYEdIGoh u3ekWSXTFISTPbogEAWORbEd pgOfT4n6ChRaq3GicBy7VAQp h379sb3jfgW9PUYlWYT3OBs4 VHGaRRCvuI0tYmU2cZTdPMBl k3NbwPhrs2DgYlMAqMApAJVr a656oe0hEJDttASqmpAbsY9l AMvjasbqgJUpMJ2bAAHiIUPp VMBxXG64hiOqMT6clNDyo6dz sxUikBAsm8FapLF6DYOufITs kzktEe3loNArHNZtlzVNvdCn tzUmUBMksvGaQ3JemJSxmDR7 IFRoZSBzdGFpbmluZyByZXN1 tAHfWDWgMFMtE6GvezZljfth oP8zsPsrRWPSM85jT8CDDDh3 kCAfjCdfARBpXa7mNCkZIjNn SOZfROGTg4xxKtZEHeqfWEYf tF8rDXKVFSdlDWGfpLepm30z N5zrLKH6PQOjAqNOAWMvXfUM EIS1cR4iZSzcQTZxHDOqiENV IH1cQNH6NOFKI01qH4BESTKa M6FmBBLdHCLcYRVhIqSQxnLc IFBhdGhvbCBMYWIgTWVkLiAy SPR0XkL6VqatDDz0OBH4JT7t IdifXuHjy0b0INUmUKm0VU7z aoJqCkQtVGdjPXfsCk3ROZni HY1jMWBPY0NOLImgZLEqRMrs uGSuudRVPDfzQTMuxR2cORLJ PDbdKRYni0BsqRTeJMyeXPGy YWwuIEVSIGFuZCBQUiBUZXN0 lH0xGOscJKCyUMUajRZITI4k DMF3NNHYE01bN6BVGPr7vAOj vJjeZASKsQYqtLXnBHfdA5xc lhUMewFohC0qRsNtBEjxQMia Lyd4TUG2Sv4mTcI4NqOph0z6 IQGqFTSqLR9HH10mNGkhNNDj JOfsBhhpAHJomDVlUID6PMNY Q31lY4FUTQj6cQMnnZqcRTSf IEVSIGFuZCBQUiBcdTgyMjAg CKx6D5Scr7u3dFKkGDV5SbRy EXpyCVFuucOugBopSFQwY5Lx VBMyuuWvwrZxbLUhqBR7sjYf TID6aE1jtzPwNDujdgWbqM97 mQ4iZM19E6xvYJSjq9GpiC6i vbggUXB5aR7tFHLxn4itoclu KWGiAVWiAVSfaLNqq5LaC6Iz sQEcx8PzdY9cftzwBu1xVBUS PFVxAZIuIQOdE89toJVlYUAi PABqWG45ORWib9i0dSKzWc7s cGFyXHBhciBIRVIgMiBuZXUg NGP6QzWeEJzhZMIbq7ThzOu3 GMw6UEYpVIVoYzt7RMunGook dhMtrBksLZGwZ7lwS4ArYkKi PU45pTZnLR1uuWQtRO3vTVI4 ZQxniK1gOERnLOMtvONdJ43m zQqgfSHoMR3uLZfbaMYtj0Ot e2m1aVpkVI1yvdTcxXzhjeAf MSOpv9EhqNffIJcxztAbrOZo TGA1iS3cLWEgsJmtMfLDNDVg VuPqKEObMhIrqHg1t0BibFEi CFIiGMQzCTR1iIZyezFgw22t uUN2IEEhBE1diiZlVAMkjEUp lnskTeS7uIK5XCxtFHetTWpa KrOkf1CtdoX2QVk0JFputSTu d8XmsI4kKtPaULZjPyYecnAr p8j5NRA9tN9pepWzBPzatd5v LEUZWSRssmQ0WRUiGCfhkKp2 GYKeLBIfROItLOU3yXVdkhQi bmNvbXBsZXRlLCBmYWludCBt UI2pnrDlLLSziIEwkupwFfGh Sergio+KFFjKI7oWTpynzRmcELt HIE3wE5uEBXqtGuoEBKxQYQP HGDiPfQwBMZqMs3hW0S7xCBy AyWqIJanmyVqkJdrKBKitg5v h4IluR6dogexm0IeIbPsziAk aU4dk77adVU0DFCrFX5giuTu YKVecMAturojNfDibmR7UMUl LKApn7JwoN59LCJmjmFdeTRp l5MiZ4YldQXqSLChgqvuYUNk KZxeSAZIK7SQAWMyp4OxcaPp y74eB2ZfvzPrpN7xjITtaGXg IFReCSHaaz0ec7J8fU9iFZ8x JGVwy0l3kZThHVP5NFcefP0u FAP7uA6hKPAzfEmjHWhzCL3i sd3mLErlZBS8WVKxVVJbDmVw GR9rEF4sXGKnUA9yEZxsWkY8 ZO3aEyMzHMMdZdonXZS0XC1v DcHjXs2qMaY8TrPcZyAzNoVH uDDnhA75RV3fwUJ1EDLhd9Wp RWedIRprAKArqvW5vUIuZTAu yaJwFFXutxVwxbDjaFrdb2Uh iE7gaOCsdeHhd8VdfQ0jlbda lNRhv0UmE0PprUGjJYGjJPVk x13vStKiZK0el9CvqlfdClB9 ACyutKCygDQbdAN4ITndBvL1 UFV4mj8eFwpkJANsklG1oEZa qFNmgP2uUCYhXsZsEGKvrxmu RpTyhW4evVEqojSkKDX4rDUv zIKxhT4llTrztaYsgoBjhP72 AJ5mpGI2JQNqn6DwnlI2GITl CXVvIRFnEZTnPB2fdGZvggPp SLXizNSxBZZod9IhDZoaNG3s ZSAwLTgpLiBFUiBhbmQgUGdS UJXsa4LsyQt0XDKrGZTmaQAi YFVmq2DcCE0vTCG4MEEkLAJw UwkhMLThlN9tz8U1LArqyqJc x2LnMMmbyWurSnHYJYLtzG01 MCcgp1UchlBtVIkysPouD8ny ceeqKNzim2Q1J21vHRMitwIo YUWiFI42hyAuYTBdkUIjtwno nA1ubX8dNVmtcFijucKqxWIf s0GvVlIRj3Doyn6wDHA6gU6z QKErWtA8RZdqIMp8UTyzXdAU tZfrRD7kF26nSSJ3RrK0XjQe IUK6RUh0AIswtGRCQTMfgcBo zpG4VOwwOVZiAGKlGKE2MKDp GOZiqSCJVD3sYOQdXdLjOTAx AJV6BHt0HyYjIiksGyE6ObGh XSwgMjAwMikuXHBhclxwYXIg ZB2noA3zgWgwcR2amVNzjKO3 acqvk8HbGQZjbfKmog0sWDUt heFvBDLrYeEzufNqQTY7xX2t ldDkQhYojgQqn7KpaYgxz9Ba KYVzlyE4lKTbDsDpoD6waiId nFU9RFNeMLIvEECipC55pi6w dGFpbmluZyBzaWduYWxzIHdl ghKhJOizjtBpb4LlNEFhZFDf t6HubiTgKRXdJZGvrtJkgjey dFhhYVHvkIzcRAWaDWHmdh0v t0G6uP7eFNCbRYWbcnVgrvWw qKmbr7RwsK5lnYUsipRafGFa w2QzH2IbiCYkJJGbuEZacZNu VDXjKOAih2z3dVElCEZjONRl XAzhyLl9WLGmr953iu3avyF2 KCEkPVbsB7d7VXPwLEyvQUIh RIZnibZxdIT5pG1cHwerCXMx rCMpEUUGOK4VNrOeuWPnZGAB HTjkdnRmq9AdaSc1CELaMYYv ZVLkNZCwf6z9cJLyXJEyCZUw ALGhLH5nULUhiO3fjVmficBa MU5crQFayVIhHDPvzI11JWam tcGsOHavTAugryYvc2xpHXKt PSQxTtFNOrXbhTXdBELjmJ6f FGT4COlOUf1tEWejqqXcCHOu ONudhMj0DRSuFPY9WKGflwB4 yLAbb0CetrKcaZXcDK0zWbb4 SC6iBQRxHY1sduxaUCY9dNKv ENFdGCKyPp0kWLHvuEjbhcDs OQcziKbrhN28OWchyxJiRYrc RXiwgsLzd6kqDSDsAUHLYfHe eYCoBLLhlT7kUEEksSOrhOdd cMIrvLFpOP42nJasj8PyP5Pr pJMzh0YaaQUaTWFyQJ2jGfj9 VMXiriVnYKQbUH56enLblsMo Z08xw9qdYRXbFOPvhCmhuCAw MHTji5KzXH4qa1FryG6aVUXw KEQ2uOUabE0sAYccqgWuXCYz IGRhdGEgdGhhdCBzdWdnZXN0 IGludmFzaXZlIGNhbmNlcnMg i1g0xRM6aTRyZLUpUYQ0mVRv VEHzPVAwQVSzdc8eZP2gm1Wz FRtuMRLpiBcaJiBbJKStd6Xn WU5nDNUhp2lvK7joLX5tRN4s iYDwZBnvpsPpY9BhUFEqmYCu IAUzsX5oRWWuf5RrgYRxEZ1b njCkm9fyfEplffH1fuREPw7b KNdnnDh2WXOaXQ1kBBSgPvyh SKOizOAbCHIIVUzvSN2gTJHe GTUlVIRrtmSftcMqei5vcYTa h183mh0vER6wLa8eeC96CIYm QXngP44xzWRsbNPqJJDrGNIb HKRkwzReNHT7bPFxvOFjvc2d dNWnq452fg1imhTindAuCYGf ib6mxocmrBJboHSpe1ZxmKd2 FN5uKYAeguEnENPlRQY4FEV8 aS3jEGGed0TnCZAzn9PaQ2pn DZ8evQmplZFhd304QTyozzXu oyLyeu0zpNPza485co3ykvLn FLxfSdOxq5WwcjLksEQeTFQd gqVfb01iwRGgZFMld21te2Oe SZDml7XteOLaMnnrAFMtnKBh PIivfNAss4aoi7UjW1vveMrv rHS1SRQsB5rwrWHxkPD3TTI1 eQ2zCWakjkVvCZMmj9GsUZAe FWGnMdT3tD4vCPE3NfUYdYwb TVX1FkJ1VYxoGOIuHU6mKQyp PGbhU7EywPNpSXNMOBAps2hw T0jpUMDtv2NmqP0ukED4oZLk XZHxtZE3UBDdGBD6JJrwaMIo UIBbPPMcbTSnuLJyKz6ijBCg R7VxL1qatiDgrPJhbUW6vNHr NFzrddVbHNU1ZBUtbA6zOE2s NIIqgNDyWS5mpUGyRVQcAHBt ZGYqXHBwm8BtXBMazr79GGRh YkoseTjqRJVbMy3vVf4zOATm zuBrELX8RuRAMY2esauhpZAv qZbpgk5mMWtlLIVTVVKwBTKk WXE7XUGrxU8dKNI5cUS8OTU8 J4ulO7iiJZXipoLmON2dCWMw oLEwtbYwEDwlHJ3apAPuRSUs a4HkbodtXALyEFJ7VOJ7OOsk RNXdWHBfDl7oEEQsyM7eS0Zw CIQ4vjHpu3RoYuJPcUSprU19 zFLlln84VNAhZLFoS2CnSOOk HUXxVPaxvvYytIrkKKPwv25a iMQlinYxk9UoshVyKGAjE7mq KXDnxRXvuMMuo3TocU3biQMz cuYrFQL6bXKmYJEshQ0zSAIp jEsaLGVicV7fN0RgELupJl6h SDMaxtiqUV0azi34CR3xfuTf ZX1bvnUgRQ84pmNaZlInVIa7 FWbXUJsTSNa4IRGrolGdwVXc bYLnCBWkiV9hqFFcWf8kgSTt wZenKHMxhDRnGBourIpgE3yz ezulOYlwbCYfm6SahC8wlVH3 EIQ9eQ5rEaNwbBVrmH== DIAGNOSIS (test code g4fweTNmUVTgj0xjLISkgFFy = 3220) ZzEwMzNcZnRuYmpcdWMxIHtc cnRmMVxlcGljOTYwMlxhbnNp VRPxoMCqC9ZastunYBlwOY1u NL2vfNqexHBjgZFjVOGvFsSk y2jpi868lSSvu2fxEOAVvhjr oNd0fIszM71mf6Y7LbyyX43i xDRsNWT6ICVjREXgdPDzACZs BYS2INAmbOJyW0tsCOLsJI6y twhfLGeaINnaJMLsfMT2HDZz aNMtG1KpPVXmPSryHHZeuad3 TbEoGe5muEYhqIvfMVciZZBg XJRgUVetIGVtOdMyGQ5mQeFL FLIEBBJWLTnDPHQOK0cLQCYC OZGMS6gJCipfFPAnUZDvZSUv ZPKkGS5fE8wXCvqoIhNPULXC EsDcOs3VTBTTBhPYMk2LBAtc YXJccGFyIEIuIEJSRUFTVCwg YnfUCVTtO4WREVGTU67XMAHN USqRWEWjLUEZYNMEHC1JPNoz OMGwFVGpOGSoBKYiQW2sQW0O ZMxRPjEMHA0XZUfXXnAMZINy Y7QZI4xCH38FGTOFBRFFRQVN TFkgVkFSSUFOVCBTVUJUWVBF XHBhciAgICAgICAgICAgICAg ASLrFUToES1rS9IXCVHXP9Kv JYXFAc8IT15PWYVpTLdZI2SO BSKIRUGXKQYOTEQULLG6UFZx XS0fcVXdRHYmOZUhEPWrHYFv ONJpPLRkZZFyPXKGOFGIL8oE H2hPINcNTBCTPUysLu7aVKgl ICsgMiArIDEpIEJZIEVTQlIg I8VAIKQASXFsfPFgCVCzGNVy ICAgICAgICAgICAgICAgLSBN BXZNXMaJQJQMEG5JXCvtGI2t MQ8JBQ4ZNCRoRRZZQKPnQCuZ RidTXHBhciAgICAgICAgICAg CUXiBLMfFGHvLF1fTFnNDUoM LNsNZOpBKcZYFI4DMWaEZJPT RVNFTlRccGFyICAgICAgICAg ICAgICAgICAgICAgLSBOTyBU TG1LIpNMDfOKRUESMFIWPekj RYgJXQuOV5bCZCLpmUNhKMUx ICAgICAgICAgICAgICAgICAg DEYRPBJIKTMQNLSGJLJHFR3O IZgxIY7SNRFRVmAtjCNqWAYh ICAgICAgICAgICAgICAgICAg KDAnQQBhVVVlTF9hYD2RIUEZ JG9XAE3fQ9DFWJTKV0ZiFwVM E2ABFKjHCLufIk3HMMyKJQyt YXIgICAgICAgICAgICAgICAg ICAgICAgICAgICAgICAgICAg BJSbLNVqBO0hU6GGFBXHSdNz QYGIN8JhDluMWShrDK1HYDLX EB6ZJG2eN3FBQUTTI6CqfYLi ICAgICAgICAgICAgICAgICAg RSCnXARaSYJnJLMzUT9cMT5S PRMBF8UrJnDAFPTFDbQFTJjn SK45FE7fmQLtQZZxPVZlSWGi ICAgICAgICAgICAgICAgICAg FTAiBX0aYLAWMANKODugVU65 XD7hbKQwWDHnAUOmEWFvAJEh ICAgICAgICAgICAgICAgICAg XL3rJT2BHHXMT3JsVcU1SK2x cGFyICAgICAgICAgICAtIEJJ M6AYLEXYKXXEABACCM2PKSMm KENMSVAgWCAxKSBJREVOVElG SUVEXHBhciAgICAgICAgICAg GGQOQ8EDCGBGCBQGXvNUFk2M QSBJTiBTSVRVXHBhciAgICAg ICAgICAgLSBBVFlQSUNBTCBM E7SJBNVYVKlDUQULZAeVP3bU XHBhciAgICAgICAgICAgLSBC MK1QY42xGdBOMMDCHOUYS5DQ RXmfYUJpTKSuLUGbRLZlCY9e HbrLCOABZ0MORqNFXzHeOEUT VZbGA6muWQTsoCBfSCSpCXSR RUFTVCwgTEVGVCwgRVhDSVNJ E07yjURaQNKeZWArGCNzDOBh VBJXGukMNzHUBqHFY5ItMZqA Z1WWKRDmebKrDDSfKGOjPRUp EOALXE8VI50uR0hJTkcsBKDp xZFxGBErVRvGJLNUVB2KTJEf JVQID4zBGZHLVtNRZaSZQJLt GXJAE4BFANL3IOAbCCSYD5RS VBuvRYAkFPCvVIIqFIEcDX6e L56DXLsMCGKTVP1OQMVlP0jK RCIPORVQT9IRORsOVIXORrDQ Ew4KXCJcBE0wRQsuGBMaDBVe ICAgICAgICAgICAgICAgICAt RB4THRYZKWYYDWEyHs9DUTEd OqPsSi1PRQLltlJpYMUjXXWp QWAuVGOxPXFnAOZaHL4vNw7Z RFceVAmWIhSUI0ANLRAEDMDT IoOFY98sJBRQQ5WOAVrkNPUs cGFyIEUuIEJSRUFTVCwgUklH IPAdIxOBUFFXOKDEZH9UXF1h AS5TGKQRQY4ULR1JJwnCCjmn AWdVWESEY19cbXCoOGKoNRVp ICAgICAtIEZJQlJPRkFUVFkg EwCFDNLDYIKZY9EIYKrtBGQg WGFnUZJvUESqNE6vNbAEJFPJ MdSaOr0FNVTALazUAg3ZTEEg aVTnuSmwluBfCYdqd8QjMCxk MXAsES1uvXihYLMpLZ9xIMTs T5vinP8iavm9FcVmTJZsVuT3 YDNjxdV6Qub2WIBvXLmhc4mr y8CuLMGmLLr5jFheOiWzGQHa m2vjgaSfJuRrQLBlVJPbAKRd wUEdP691r2aai6jwfsLprLN5 RXJiYQH7HGkaoeKrvvZ4OFfn jOAfUpL4RMzbxvGyONnoeoEd ywEkTzh4THMzD722WQG1vNjn p0ooDLM1FNVmWWEsUlDwAj5k fTMjZ085WQDvSHCCYRZrzIe3 HAAglnHfvdPhtVYHf392R121 m0baMHNzeaUxjDzEtjgbs1ka W996VKPhtVKylgNmLeKzKZSz kEOnhAI0OMWvJC8dcxkyMSfs SUaqXBDoqoT3YFQwgUEmE6Hc ECUyNB1fxngbOXA6GZzfRVRv UMP7BcYsBFLon5Scnhm3AyCe hl6pro76SRX4p8MgnLwcDBM2 HAX0DtTrIh0ipAOaJTRmCS0f SoTedIJuKIXkjr75cTofGGrd TIY4WTXqgfTeq5Dxa4mmHrYl dgHkX3jiS4LtEUNuRUBeKHZh TkXcbrMxt9Edo7FiqDKwfPy0 t3vbSJNeXOZpuHtrb3maYFT7 RQBolMTxI1hsgQ8sIKNoCR0i gdkfj9nnUGbjIZfqRADvtTQ5 bkD5JJHnjNBrA8WysT5gAXHu YKvlUQBathu7GfRcXi3zaUJs eTcyMFxzYmtwYWdlXHBnbmNv bnRccGduZGVjXHBsYWluXHBs YWluXGYwXGZzMjRccWxcbGFu ZzEwMzNcaGljaFxmMVxkYmNo CIFrZCoyN0tvEvCfOzNhLnj9 NPHddFWxRMOoUzu5EQWkzSRn YIAQuJusnL4uOOJfgOpkaV0i vQQ7JCJzjpUhjUULpP4fEZSQ aQ7rWbV0UpIoKjG9ZAI3GZOl cGFyfX0= COMMENT (test code = z2ybzSOiLHWjqZG8LsRfRVMb 3359) o4atq1MrxHKymYLmHFeotYXm yoKeru27zYQ8vR92HO1vJDVx BpP8KPXpohH3Cnt8LPFpXOXr xPGgX273u2arz0qwrvZhvWE5 hReiVFJzznviMxJ2SDqyNMGe lquuTBy6BOgoNBNpbLK2GJJn zTUrN0UkTDFaFN3bezk6WSJ4 NOvzKUAdIxR0MBMfrHVaHIZo gIvdKOxqt393EFH7YzBcSWXx aiCisNhyvY9gQvLzGMNTWU4I MmGJNKJSQG2FOMsKMBPUH8gG Y7rdKEJdKTOGOL4ZITzQYjZZ VNIAKuWYTFfZRj0ZQbZJVXWG RVJBUFlccGFyIEFuYXRvbWlj SZSpyETlf6EhrFNzk9RlQaTF ODvDGFBvltOus6JquXRbIDdu n8DynO4lgTRevRwiWKY0PWus AnpquUEjvKkaQjFgi2S4dJSx DWRczpYshg7oCLzkwQRjeRjd hIe3IOKuznyceiCyxTreAPgs XLInLDlgwQ5im3ciXrQgwaSw BBD8GCbcIZRqk5ZgfoY1LKs5 IGRpZmZlcmVudGlhdGVkXHBh hjQEuS9zwsUfpEciSDzqXHMu mSnlJVOiCVQhpWNsvKZ4sK8p esMiTZfhLaM0oAPiHWrbZTLs DUdnxEfqot7aTYXqIletJuS0 fO3bGFTdyhNXBRXwzR9xAWsv TmVnYXRpdmVccGFyXHBhclxw AQIlKNsROKveLo4VSROJGG8Z QXVRINKsnsLPm9EpgMLwPM9h LDLfszZtyfSsTUr3xBOkBW5z WGEbWTkpWZnzWQKfBX60CAve PvMnGdIay75yo7WesEbdEFxk pCwptHuvwa5aNOAxGvViGITc lpKYv7EjhZHfOF7cJUKep5q8 xWOqQKFincDsolZyQNj0pIIq HO0tFSIrJCbzIRwfCXZbhYOm fQ== SYNOPTIC REPORT (test INVASIVE CARCINOMA OF code = 5765) THE BREAST: ResectionINVASIVE CARCINOMA OF THE BREAST: COMPLETE EXCISION - All [id number] Edition - Protocol posted: 05/16/2021 SPECIMEN Procedure: Excision (less than total mastectomy) Specimen Laterality: Right TUMOR Histologic Type: Invasive lobular carcinoma Histologic Grade (Timpson Histologic Score): Glandular (Acinar) / Tubular Differentiation: Score 3 Nuclear Pleomorphism: Score 2 Mitotic Rate: Score 1 Overall Grade: Grade 2 (scores of 6 or 7) Tumor Size: Greatest dimension of largest invasive focus (Millimeters): 41 mm Tumor Focality: Single focus of invasive carcinoma Ductal Carcinoma In Situ (DCIS): Not identified Lymphovascular Invasion: Present Treatment Effect in the Breast: Probable or definite response to presurgical therapy in the invasive carcinoma Treatment Effect in the Lymph Nodes: No definite response to presurgical therapy in metastatic carcinoma MARGINS Margin Status for Invasive Carcinoma: All margins negative for invasive carcinoma Distance from Invasive Carcinoma to Closest Margin: 0.5 mm Closest Margin(s) to Invasive Carcinoma: Lateral REGIONAL LYMPH NODES Regional Lymph Node Status: : Tumor present in regional lymph node(s) Number of Lymph Nodes with Macrometastases: 1 Number of Lymph Nodes with Micrometastases: 0 Size of Largest Nay Metastatic Deposit: 12 mm Extranodal Extension: Present, 2 mm or less Total Number of Lymph Nodes Examined (sentinel and non-sentinel): 1 Number of Stirling Nodes Examined: 1 DISTANT METASTASIS PATHOLOGIC STAGE CLASSIFICATION (pTNM, AJCC 8th Edition) Reporting of pT, pN, and (when applicable) pM categories is based on information available to the pathologist at the time the report is issued. As per the AJCC (Chapter 1, 8th Ed.) it is the managing physician s responsibility to establish the final pathologic stage based upon all pertinent information, including but potentially not limited to this pathology report. TNM Descriptors: y (post-treatment) pT Category: pT2 Regional Lymph Nodes Modifier: (sn): Stirling node(s) evaluated. pN Category: pN1a CPT Code(s) (test f3mwwVGhHJLovYI9EpKxXXZr code = 3357) y6ury8RqhJSynDBgXZxpaXHf ueMygn21gPW3gK65JB4aMCVd EsU4SFIgrpJ2Frv5MZZaDMEk dOTjO692e1qpa9sbkmQrgIA3 tBbzVNUkvxueEgH8DPzeOPKe ywhxZNe1VIjcYMYvmMC0MAWo xBWrB6RkGPFzYT5wfcg3EQK2 XRnwOXSvAbK5CILqyOPhBXWh sCkbJJefd649YJI8VjCoMHYg onSneTjswR3pFyUpPKSSVjZ6 EYNsBuZ8BCYrxMNpUQWsGDb3 EsV6FDweWZgkAAyoXvheyDZh PcZ4AEN9LUC3WGE8CNa0NKe0 OHssASogASHbFc7kQDmmRAQa kGRwFCLtorNCLoW9GWBzBzW7 EEOfxYSdCVPoCAe2VnD4JHqq MVxwYXJ9 CLINICAL HISTORY w1vwgOScSIQrdPV5VqGqWHEu (test code = 3356) x1mxf9ZhuHUycBEdDEpagPNd cuIcib48hVG1gM57DQ6fNOWa PhM8BUGlulL2Nrq5WQExVDNf eCRrD331h5ibr0xomvErjDD8 zBblELArlxjsSqR6KWhrKAVi prgqLSv3TKkaXXSbnDL1FCTk qBGiJ5GtTCLvTU2ylxy6VGB2 FXnyQBNkUvS5XDWltULzTJDn aZnoPVnyq938GUM3YnNvJYWl eqGgjDokmV1mFhMlMOZLhXto yGFxcoBis9VfT2TzU2RnKOHq m1Rxz2xqznYiSBSfcBWvovGh l7SihJz2HHbuRQB7 SPECIMEN SOURCE (test x6szdEUmMJOhiJR6RoKoDYZg code = 3377) o2ahu9RzqXZkyVSsLRbjeYPg gnCkte65hAB5rL91GT8mMVCk MrO7DZSvusI0Clw0NEEyJXAo kPVsK907b3njw8ttglDkvAX0 tSosLITrccdzLdS7JImvTNXa nuquNNd2AIspDALscFI0BZMm jOUbL2KeJVBqRA7ptsn3OVW5 BFytNKIaZwC5EAMuqVXxANKe kOpxZPbxe503KZZ9EpMqSWNn rjEpqInylT7qKcXhTFXIKyKX jbDdz0WiAXIcI1j3DKGtzK7m cGFyIEIuIEJyZWFzdCwgcmln wGRhkGNjdHLhlE1lxUvoGZLp As7vPsNiKII8NDMpQLA9QESu d9O8VDtlRHXxLF0tJOofuEsm zf4mOBvcngdmwLKgn3QkzAjf ZWxccGFyIEUuIEJyZWFzdCwg xgjtcOUqilK8ZYW1qDTmtT1v VN2mhB7zcZAleQ4eOM4yhmol blxwYXJ9 GROSS DESCRIPTION w0wjmVDpQMHtaKY4IfNnITZq (test code = u9uib5IwpRBkgSIwBCvvhWMf [id number]) heMwdy74gYS4hO63LH5lTORt YdP1PYKfhxD6Arf7UTZwSMHl gLSeN275x4vqo9qybxKqmTS6 QVYbLEYkJ1GcKJ9iUVOgaUCy I92qfZToLIQ8QMWiXAZehXIi RSAoIHW8GJWlmUPnC1auLRMn SA4gysspPHmfGWqxXUPkzNX3 QGUgeHOfF4LwGUKzCTmaTVZh kvk8YhZkVr9xtSSbzJeyMAxv KMGgl8cvWIPbgVUbTCK3ZFnb xSBiUKRyUWEvUPz7GMSqBBjl cKAwVG6zeUqaWdfgqUexn1Lo dCBcXGlkIDUxMDAyIFxcZGIg M3OHMOLgQgXaCfwoEKCdYKt8 AWxiL9OWPAOwBKD4MLUeKRCe GzU9XBn4URSJOl3lMNodQXUi XMsuCIM1NbQ3STbhqHZpREzi ZmwgXFxmIEFyaWFsIFxcbmN9 OTVcFVrcKDVpJtArKQ4xPdEm OSL0ITWUyRecrB0qlEVhWLMb EfMcSjByCEp0RRUkOlZro0ul hBAsREzqWUM5fEQzRUGqJAHc ZZTrLS00OYjnMWEivmGgNNpg bWVkaWNhbCByZWNvcmQgbnVt YaEaYAUqYXEuVqYyXAR0FVLn lPhlyVVgmQExYOX1BBgkKm83 JNzmNHInaQXlC5yzQUaqbIHr h9QjxKGkfIhbsLWte5Ssuimo DZZbtMSsQLFysT7pZCcqoVYp ECJpYMOJiFXiiX5oltLnogWy TDUaUGwwdIInVMF3mZ8nWTPs SK8gIO7uNMxaf0BzVBymi5td ddCrVPXhUOweUM33pEBbMLPy VMFJWHJiXHWpfnTktZo4OXCf SGF1cH8wrpOtgoNcz0JbhTy9 yCHrJBmsPVNtPorsTGUyB3Ur K5IfvjFumEYgGOGdjpVkw5hd RZY6GCEysWZytILjNbTiWunt SXG9r2uqOJRrjKHqOFV5LAoz aWQgNTEwMDIgXFxkYiBPVlIg PhYjXCEdWxY3IpI2YQj9QTKM NiJcWiEbPxl7PwU8BGRnTZm6 FFo7ZDuLXrR0QQZoFRebLfHp WIPzYENdRYp3BUBkMDmufJZv NLOgPPHtRChaHRhpH62eIvCp MAEPSxMQsePoc4PbGVBhW3j7 LlxwYXJcZnMyMFxjZjEgUmVj NOr2ABZfDsVfe8vuTXhqZcSh GMUlw7g2yIK6tOAjbIW7gWOx pCvgES5xnYPrFB7HWoCxwiIw ImJyZWFzdCwgcmlnaHQiIGlz BPVnQqLiRaxbTN18RYMhMBvr pTYbnjjtbmG8sxLifrRwvefb ciksIDQuMiBjbSAobWVkaWFs IHRvIGxhdGVyYWwpLCBhbmQg LD20WVReKOiqjeSegvcgkhC4 olUno4F7LKBqs3ZeQXYsfbxt q8JljHNyH9ZcRIIjFTUlUPQx dOTfaB1eANA3w561BOxuhAip YPNgxN9gfCFfuHi0R9nyKENb qNruBCVeaznnhJvxOVI3nCVk rH7jGN6zlpwwypOipzNoWKXm c60bJAT9vHBeaTRqXITfD25h rWvbPxI9cKMiyNB3CEDnsRId ACUujC4uACiseE5sHGxazjQr VGhlIHNwZWNpbWVuIGlzIHNl lopydNk3OXVwR2Wgo91kAGRn nn0iOH5zKNihzXQ6ssOdPKSg ruLiVNnbbQ8uFuFatEjzUCBy DWMxALDpLHqyMKNrXM3vXRCl ECRwUwHnvSTkc3WzhsH3sPKu UKLeE7SgxZBghCCcPM7ojH6b JTGnigP5yHQie1FtJBQjo6Od uZ9qkPJubJ6wIRJnmBEtsYQu MjCnzQnjRZI4SR4zEWV9ppfe BlZiRqWwN84pPXK6gSUobB4y RAWbMEmuAwMmiU8yFJqkXA95 YXKzJFfrRBFzJVanrM2odOX3 TXWcwHcaAYQyTMYhWmUyO99s TTGgcELkbC1sJNFaIJCyd4Wk nngvdhhvQRMaZOWhgMTtf6Bh YxMrevBdROaeNEpjG0I0BGRn QX30SMPmFJQnf53fsAkuOWB0 yOEslZ8iSVEsQpuiG15vNjTq zRF3kLHxeS5bPVCby5UbDEWq YCYlwWIhyl5xYDSoCCVrGSPb GBfoXDWuOONjrCXhcg0qTUWv FFHcPWLrquXgWVVbYfUoV86y UgYhmQN8rMGmvW9esJZmiG6o TDKwglLpSR21AQGuUVEmv41p zUsiRXGhgGLjmY0wCQ3nstuv sxQzQHGvERWloZPbnN7wsfAy quG3BVMrxPZfFBN5bGWdooSx pW4esdSnhFHlseMcisNfHJFs ZCBhbmQgdGhlcmUgaXMgYSBt XNXgeDixIoKglZ3sr6csJ1xp pMMwyuK2mWIvXbpcdp80kZVd BSUlCUXktoNkgJzlEBY2Xoye nB4xJZpunsJgPMckYFRqlWDm liwjFwI4tXWtoVBihBAbVYOg TTOnxHMxf9KziXxrd9ThYMKn KZFjPHTcYalhcp79btO3tKEc fDNdUFLbbKOye1EfbHC4gNGb CIAuO5Efq88hTCRyNXEfoMAq tOH1QJPpVQvkhhRonRshYKST aN7nXAodWATvte8ynWkrUrP9 EhG6NwJqTlHfPIKfUZkjA7sw vB7qWQyqxeIgON1kLQEyKAQ6 FTbixmHaDol0OXawL9YlLLNk l3WglGleBNFIAMA9FNfhOtSo rZ5gIFfijjKaHqnsA1p4JFAx v2WubyxibzmvcX9hEHniaXvc zlqpFG12GUZrs7DbpRkqCKtb eW6eGQQfU5Txu99dY20tJNdr tFgdKCUDJGooKTQvfMQiST3r cmdpbiwgcGVycGVuZGljdWxh hhJcKPO1dE2nrnusx5WtESPu d0BtETByJYO4CW9eZLZmePEv WWAmrIhcSOSQGz3SSestI4Cx NZJfg3GegUXqXnPoGeWarAnn QWImAWrxnvJdQfCgJzH7OLYc mKtgSRFcyRcoHSKlBAV9Wd3x jGIhRIRxUGZ0UF50wYYoxUpw PkQvjFTahPDbrgxefiJ2tyOk xjVwscgydfynyPoip3FnRCYj ffFtRM71FQTuYXKlHoZpqDzk RUVtWAMzzGyoGLAORfB7KQge pTO2l17tICvcvLxrGaobnl75 kABonMxbz9VcZTXmHXV0aJVd tF1fPNLvMKCap4A5EYKhm1Hy iHIoZ3rvcjcmJmufmSE2GZCt xRGtv0q4LFpnb2wvL9GqWFwt uU1kQFK9TRiyZezdfc30zUHx JAJkVIS2uoFolBDtbxmepi7m aeGuuqdmnpLsUKVstP8fRCGp gFedBRF6TLwpgoShSFw8VMUb XaNzaEfrZAEzAMUlqI8jTX30 ASXou2RoGH6rYCWqc7Iwbvpc gzVnCPQbzE0sDJWgpTieEGM0 ORiotnOwCjXpFLrlOS9dHALu w7NbnSPpM8pySO3bJLSazPLq IDRcbGluZSBCIDExLUIgMTIg MhQ0gQAhoYLaHTKvTNRlpxPb zJ5cHnxrsh51iOMtGTSzRFT5 bqRclyWccWEfJMC8zHXqbA1q Z9CgeWUmjR0vQ2Rkx4Innuse slHjNITisB0nLHXkhArxOCS6 EMhnhlKfNuPxHuheZX3iKVWp v0DyvKCsL0hhIE0zZHByoBMt HTPamAngKKKHDLG7KuYQPIRs UUBmpxFvpPq9AVXbFiEsOOQp veFnDZ8zhrxxqlrduPGyeNPh IRjhmWebnwPfBIP9eV4dcamd n9KrBDDmg6MsNYNrAYU1PO6v EBBokJZwPTU9LUIzqHNlMBS5 XU2pCOUzaqrpKUNeBAKaMNE5 ZAwcuO82cODsDYCmPJViyVKe sSdcYeyqmPame5HpdVQaMPcx ELIfGGPyVHaoYURtF1UAXZTr PmXhCervMCOjCQy1LVbgY9ZC UIXiWAM2XUM3XQN9LzN1AKu9 KJTSRd8kYNcoFdI5WNQ7RRG1 JeE2IKhegXXxWMfkWshqARly KRPdxJVmHYsvikK5TEApNjMr O4AqFEUgBTDzHOQllUfxQKHv jA8stMJqJTWdZqAxPtNvQAi3 ZAYkYnIrb0tdsSHgEOwnOBE4 eSJlUQQhVJMxCQNwUE59ZAik NHMgbmFtZSwgbWVkaWNhbCBy ZWNvcmQgbnVtYmVyIGFuZCAi OhPmOFO1ORFtHXA0GaCndlMl YNTxBLqgIOPdFZE6RUQiSLL7 GQAxUmLhkGZ0lh9cwLZfxPZc QSJoskTlu18wv1DtGyfnbq5d JDrgt9BcBXDlh1T0AZ5oFZLx l20fttGvVEp4SIZalW2loOyt PTYrqKUkD93jhPXmmmKfPGcw MRTeWYY3SVFgXTS0JFQfX93s CDbffpTtKMBvMX6aBQ47hOYh rAhuQNxppC0xwWQdYAOfvoXu b4uaYRSvwKgrp6QxQvLqLApq YWJvdyPax07or7KdKuqbde6c PUgsw5SzCBLao2L6ASAwjnBq ZBYjTSiuaZSyESV9vN7yHXTc jI9khsU2LVWrOEHlDQImdBCu k2LgFTBvu2Z7JYGwytQfEgCa ESAleQNwf4SprJzlx3TeAbHo Oh3fX9Mpb9MpeJUwyK2rnvDw cmUgaWRlbnRpZmllZCBhbmQg vUejKPTusX3eFCCWZEGwBONv qxFcjCg0MKOaXWN1aC4twvZf hfNei7NicGl0aVIcHPtoOLGc XAJvFijrPDQqR9VcA8VzdyAo hECnTKXqmsKkk7yeTSY2PNMy rAPinCPwZhAnWdkyRLV7i2lq ARRgzRDiWMV8SElokVJtPTFq MDIgXFxkYiBPVlIgIiAyMDMz KlK0EtJ3CQf6PVTPZbSiXnNy Pta0FjZnJogiJSj7ZPg4INzK FfH6HSU8ClH2OXQoLLYnOVLl OWs3SMAcCItqgJStHOBjFTJe TNswTJrcO92hWsRtGQGLBlBK uG4dlPXTe7HzJNQROT57lA8b bCwgUmlnaHQgQXhpbGxhLlxw YXJcZnMyMCBSZWNlaXZlZCBm cmVzaCBsYWJlbGVkIHdpdGgg wHlvGXBdeWovnsGhK7K0jdXe AE6cVJZoHGZxW3BmTKMbR74x EYHfsD4dMOVtAM2fSWZwcW1h mWLbg2BgPSVxIH72oU0ehWcv cmlnaHQgYXhpbGxhIiBpcyBh AKBcKIF7ADHaULO8NQVbJOJz wSYqsE0vONmdWURkIGTnVZF1 hXOleOtdGeS3COSzeMuoC8Ot FOj5aSBiSQ3pIYJxsQlzvOPc qsG6oeneOWX9SKZxRT5nQHTo gPokRLf7EAI1Hd6jhOLlHPTr wbGWYU7SOm67RKXurLDoGXM3 LF5cPHTjggrtKPErYQCtWDO5 HQnqpM73gPUkZJYnCGHwrUMr wXpuBhzgxUdje4KapXHbGGqg KAWlCPBzEHzvJHEmD9RUTPKd RrFnVugvPSDpSVq0GStnV5EA HCSeUVT2VPR3IotjRtQ7SGk7 LNUUVm2wKAjpDxB9YWL3HWJ9 BeQ5UFgnrEDvMCynNfhmHQvi RKLymAKeUUlirgQ3DCFeWiPu PW3mPyKtAIZ1CGPBgFsnuJ5v aLMvPPYrUoGmG5EoLHKzR2Fn dmVkIGZyZXNoIGxhYmVsZWQg q1g9kPR6mMCccAN2cOXujQyh EdGgTD5ctHJpOY1nYOxeAVzk ibGhj0IfUN52nBUkqlSzjlRn ImJyZWFzdCwgcmlnaHQiIGlz QMTpVl77MYduOlV1HAYrTHAd uNPcomItT5IjMMEgdR5wkEdd umVgTvX4QRmkw1bth3flnCQp Hvhygd1uFHgrn2XgKWDxy0V2 XK4fIWIfHTFcBNyhJOIky7Qq qSPyDHAjp7sjcjV5aD9oHDUw CMAvRCgff2TgGGMdi9GcnD6j jSLcsQ5xQW1bqormog4pFKCt RMVdNBVvuL4thSRwzI9xAUGg Tds0FFhmHC0sDSSnDSJjsZUf uB4wmcDynkZvTZJlJApvlNZm BZN6yT2aWBFmjR7iffO5DTVa WBLfSPGnuPXmu8TqCRUjl7J3 LLJyudVgMAYpXEDhqNDsc4Gp dNgcc7DzBZpglJhvfm0aY8Di c8VerPYnbY8pis6lZMQgOEEh nJYsmB5grlVmbrBomrEnalDt hUYtsLLmdJL7OXKlAQvqqaRg sZoxCWCMQOZ3mQ7xFLDkVKH9 ZKpqyiUvARY1KA3nUFXoxeGx TAPikgTjavHpO3BrYXGdk2Fy vEbgdtJwpKmiHHLGWx3VXCzq Xg9waKEcUpYjdMZowO4gjtgz j8QndMr7mYVyKFRvxQKsvzTl SHyruAhgiV9pESZ9JXF1IpUB aRBym1r0NPBgveOmKESpjxVi erYiB7PrNSGwb0QqbIlqztKm xVKeFQTgzaPUhPAyi7YjBGsh OSCkDQLVICBqMRISHZbUD4RV MNUbq8ctoWdjt2IidRBeQN74 TJYklORbWOC7QV2zgXbzSZD7 INTRAOPERATIVE f4zqrJJrNSTjlAT3YgNyRBIb CONSULTATION (test d9akx6RlsVQyfLZvMUrphCFt code = [id number]) baFgpu91gYE4lE57EU6iWLOp FeY8EDBguuG7Hsq9ASHwRWHt eHFrL244h3dol4mvpzPxyNU8 fOnqDFEzixrnAoJ4SPpzPKHl yxiwKZd8WWvyPELxmOE8AUVu qCXcU7UiFMYoXX0wwdo4ACZ3 GCtwKVXfHfQ4GWPpoLKbIDIa rNrxXRfrb969UQT9KpGdIDTy xcB0DHijDEWpQ6QwR3ZxYHhw ARZ6MSEtFQUnQDPaMZVcRBYq DAlpdnD1x4aoNYIlnNHjXKY5 IFxcaWQgNTEwMDIgXFxkYiBP LzIxLbZeDKR0ZGs5OqK5KNr7 EGSIZvDyMjGmKld5LlW0SEBp BLm1TVb8QTtBEwN7HHW3NJKl SzSqDVQwBVTmWLn9FIFhQRle tNBwHJBmLNZqVQczWCerV67p kKereT5oCdQdYUXSGgNIvbMy c0YgEKYqO6e1IfjzMTLgNvMu HXKMYlPPJ1UaZORZY5bFFDYC GocuH5RGYHKtM2FSTKNXSFpN FOFZS9QIXPa4TBoyjwEnVFHO EH3NDLBZZWjRZYjpOXYSCMKQ QV6NBX2PUTNGCHUZBNGRP6HJ LZMTDKAYQQDLZF6XGCGGKEXB V8RFNCLJX2SlTSZYBWOytXuz ITrqiA6fEODylU0ftNLvJOQ1 IERyLiBOYWdpIHRvIERyLiBC y56wSoTeRE6zCFAaHFLwNxDc RpkrFYLvJLgjDf26CQHbgNIa DTZ3AI8ftGdlYCZsQ7UiP4Pj rvA7NVScnm9= MICROSCOPIC b4ijzXDfWWQokGA5PeBzBGIr DESCRIPTION (test g8ama4TkrWSfhLKzPPljoBGy code = 3371) yeBirv90eZW5pR14AH1lWKUb IiA8JDIseeE1Wcg6AAFkIHBn eCHoG187t9ijy5gisqHamXD4 zOmqNLGdqeguKvX6QPqhNVTk rcpfZRh4AXpgJAKurUS9HXYh nMYwH9JlMGJmBQ9dias7KLK1 SBbvDGRgWwW2VIVntLXfZKQo aOwoCQqnm269HFY2VaAbGYJn uqDciMnigC5mDuJaGEXTJCBi CEQclyEegg8eWY9liNAyjT== SPECIAL STUDIES (test s2oiuVLvKYCry4uzWNOlkOPu code = 9640) ZzEwMzNcZnRuYmpcdWMxIHtc tlBtGDlfc5KaM9WaMlJcEPwr bnNpXGRlZmxhbmcxMDMzXGZ0 sbRmVOKrOZrqMXKqNPyhQg8o dEDyaDbaEfApAQJnt1qnbmXX kreorZr3q8yqNSDpMdP9xSRl HZhuL2edmfPwpDUvE6TtkTRp aTh5p1icLxMvXcS7yQXdIGze O4psizLhbPUkRNYwTHu2zS86 NUWgtK5esHAqFIyhmnFuNkN3 DVgqLWEgHqC0YRUtsRIhCFVd X4efLZZcKRdoOGCtQPcrqGLt WTX9dLyfe0O3kHRqkRSbyVyx SbWqQeVzYhIAu9JpOTs3pDey C4PlDYVxOaN1gXMuGUQkWZnz IMRcVUIgmoB0vHxbpvDlo28w eHQyXGYwXGZzMjBcbGkwXHJp XYBWf5SfdQxnENS6oWc6pOvq UmovAOM0Ycd6DW3eyk68fub9 wEnbAKQagfhpFtV9KFduMXBu ybehRXb8OAsrYGQgzDR4GGTk uYWoJ3TcODEmFX1duad3BTB2 JLodQQAcWzX8YPRwiQHwLECh dTqiIYhpd368GEC0HtMnCN8t A6Wfc9M1wL6cpYJmESPbvSQk NkTcSQEzgr4loGQjMLalj1Nf SUE9mwD2aKIerDAqEHYeNV97 Zaorf1TbZkmkx8XuV88yeRG0 LQkyg3hmRU0vXvJ1rtZbHZih j3kqmK3eFqT2GNtgRK6kMQ9h MDRlrC5botvmIRZsMjDiritr XDWlkSfbzqMzRw4nhNrjCEJ0 NBriF8czvA6eQvX2XIrbT8yi nH5tHVg9FUydvFC6TTFqlN7g LA1iaudcv4wvYEdjOHasJGWc yvE6atK1GWGfkYVuB3VorH5a FGNzJA8mmjtak8byOJO3NHsv LXAjWTM9WoRyZUYny1Poggq8 AxWom0YqeSQwJUemW42bj488 PHRmyoQaX9ojlTCqjudmxPZz zjnxOWoqxmL1EAArPLCwJMgt XGYxXGZzMjJcbGFuZzEwMzNc aGljaFxmMVxkYmNoXGYxXGxv C2fwZqQjE2GtBCKaZtAwHKhl XDjwnRDfbWFfnBN1tF5sBD6d CKAvxLCpM0AmASBmlsTidPRg FDD8rFZjcIXxAI1gYKthuYVc a6web4ArJ7gepNfduKN2MY9l QKJfICYoERjpf0KybG2zTfdg bGFpblxmMVxmczIyXGxhbmcx QHGhWKujJ8raGyCmNAIedBml FKtro1FwPUNsQZKyUroyzlJl TVr7ugAdYZUvaabwGHZxuNmv bJ4sAtVeZoArZodkDN5zVITg A7qjnOHlMMXfNUOfV8nyRgSb lF2jjJgbAKibPsGeYkUqKyHM m001xs1jYKWelCVzhqBNpRNy kT3qJDdhXKfkPGxkiBMrXKkq i5pqKOOxa8x6uQYzLCMvxwSd z1iwMNbvnlFtPHLcoPFfvMUz QADfw82aBZghpYjeuNrpJYHb r2TszZnus3PlWuJqDMbug3Je T57ibYPehTFvsTugGWTbgpWj BDQqu28gw3ahWEBhWiP8aYMx mQH3iHFfiJDvz3DdvVkzUKYj t4hfYJOspy6soyiobUNaf0Ak vB9xaeykTEifgULjxnHdSVUa t8y3jZRuLNGgVZUaMGectVx3 WQFzs805sk2gzoA2lDDrNWF9 YWlsYWJsZSBhcmUgZXZhbHVh dGVkXHBsYWluXGYxXGZzMjJc bGFuZzEwMzNcaGljaFxmMVxk UlXmTQGsRVpfN6rrCbVdM4Ze IQShZuEowEEyA9mokAXkUYVs YWluXGYxXGZzMjJcbGFuZzEw MzNcaGljaFxmMVxkYmNoXGYx IRgmU9sfBzTeE9RoOZYhRyXv IFxwbGFpblxmMVxmczIyXGxh txcyHRWaDFjjU2fsWgHrLJOp sTlfIJcuy1IbOQLuQSKtSvaw laWgJMd3pzZjJGIfkpqtpWAq blxmMVxmczIyXGxhbmcxMDMz ULpdE3kfRvXiLXTqpIthPXcn h9KkEGPsGTHpQzpukjBzFFvt uBJwr4udf0UbJ6wquPwvlWW0 CPBwN1chnPIldPA8JWA9wU4w JLhjipGbZXOoz2IaHMMvRORi DdS2jC8aNQD7FtXCfSgiNVLl YWluXGYxXGZzMjJcbGFuZzEw MzNcaGljaFxmMVxkYmNoXGYx UReqO1nmJhOeC5TmASVnSeEq xGvnGGyyYQw6HgsydNOgspjh MVxmczIyXGxhbmcxMDMzXGhp D5ueCnWpODCssOjgBKvpi2Wt XGYxXGNmMlxmczIyIHMgTWVk vNRwnFHHMY41OKQtKUXulMnp uI5nyLMIPWCrtkB7i8A0ZRdc GMAqWFr7QOwoacAqTDFzgN0t YHPhYF2cPGl2uiSrKYBpz8Bc KN9rOFGxkZQzAMH9SNIwy4Kx T9Rrd2SoKAAtDLVsil2nebKw FbHHlVGgIVLkxb09GFReGW2c Y7cpGOTgNQGcokLwnSIzx6Me RUDumZJ2hSVuQT5AVjFMo13r IGFuZCBEcnVnIEFkbWluaXN0 qqX6mR8cGtRZsKTpEcZEZIkl yiQqBRXvyb5noyGlQWTuZHMv o4BixSZbzGZrmnFcX2Srv9Ri UXIzxs42EQdwuLAjit19TE6k M7Yis4RquR6hZUpqOUEix6Rl uVGxyHQhYGJjq0ReF9zzedbh TNmqfBCbxC1mABRsUMl7QMYs r8IwAWWgj4ByRoTkomPsMEHr IIDhNLInhO39IUB0hAbcsIha peBeRF9eFTUgvjLqPENjQRIe jE6sJSncmnFlHQEnyxQ7h0Q3 RGiaPOHpugKtBwpoGZX7qkLl nnT4kVDdF9wjzrinRZwxBADf j0HtsV6okGXOoKNdx7XywEMz xSZKbGFqEH6phiYkHR4kNWG5 ODggKENMSUEtODgpIGFzIHF1 AWhcDoxjRIT2ehAqERMum8Xp WGsdT8bxY30lxOpkhYq2cRJy eVextVDvsHTuJVIhlyG3d1X8 TEGew8XkldikFNNsXBjxKOHj XGZzMjJcbGFuZzEwMzNcaGlj eIxtVamkQfUaWYIdWPoyK1ra BmBiYfFdGtibEYT7fZ== Gross assessment was [facility]'s performed at ([facility], code = 2777) Department of Pathology, [address] [place] [address], Technical component [facility]. [place]'s was performed at [facility], (test code = 2778) Department of Pathology, [address] [place] [address], Professional [facility]. [place]'s component was [facility], performed at ([facility] Department of Pathology, code = 2779) [address] [place] [address], [facility] [id number] 15:33:13Surgical Pathology Report Case: [id number] Authorizing Provider: Zo Gutierrez, Collected: 11/12/2021 08:48 AM Ordering Location: [facility] PERIOPERATIVE Received: 11/12/2021 09:07 AM SERVICESPathologist: Sisi Amador MD Specimens: A) - Breast, Right, Right breast skin B) - Breast, Right, Right breast lumpectomy 10 o'clock, long stitch-lateral, short stitch-superior, ink is deep, for inspection of margins C) - Breast, Left, Left breast tissue D) - Lymph Node, Stirling, Right Axilla, Number 1, count- 586 E) - Breast, Right, Right breast new superior-posterior margin, stitch montalvo new margin REASON FOR ADDENDUM: TO REPORT BIOMARKERS RESULTSBIOMARKERS PERFORMED ON SECTION B12 ES TROGEN RECEPTOR: POSITIVEProportion score: 5/5Intensity score: 3/3SUMMARY: 99% POSITIVE, STRONG INTENSITY PROGESTERONE RECEPTOR: NEGATIVEProportion score: 1/5Intensity score: 1/3SUMMARY: <1% POSITIVE, WEAK INTENSITYHER 2 OVER- EXPRESSION: NEGATIVE (SCORE: 0) Ki67 (Proliferation marker): LESS THAN 1%(cut off-20%)CAP REGULATION: FIXATION TIME FOR BIOMARKERS ASSESSMENTCollection date and time: 11/12/2021; 0848 HRSPlaced in fixative date and time: 11/12/2021; 0922 HRSRemoved from formalin date and time: 11/14/2021; 1330 HRSMethodology:Fixation type and length: tissue was fixed in 10% neutral buffered formalin for a minimal of at least 6 hours and not longer than 72 hours.Antibody and Assay Methodology: Antibodies for ER, PgR, Her2 and Ki67 were assessed using clones SP1, 1E2, 4B5 (FDA Approved [employer]) and 30-9 respectively utilizing the ultraView [place] DAB Detection Kit from [employer] [place], [place].Control Slides Examined: In- house known ER, HI, HER2 and Ki67 positive controls were evaluated along with test tissue. These control slides run alongside of the patients sample show appropriate staining.Interpretive Criteria: The staining results are according to the ASCO/CAP guidelines for HER2 (see Joyce OCAMPO, Geeta LEMONS, Cyndee BASS, et al. HER 2 Testing in Breast Cancer: ASCO/CAP Focused Update. Arch Pathol Lab Med. 2018;142(11):3822-5353. doi:10.5858/arpa.5270-0878-[place]) and ER/HI (see All toni BASS, Geeta MARQUISH, Gabbi M, et al. ER and HI Testing in Breast Cancer: ASCO/CAP Guideline Update. J Clin Oncol. 2020;38(12):4932-5189. doi:10.1200/JCO.19.90582).By ASCO/CAP guidelines, ER and HI "positive" requires greater or equal to 1% tumor cells showing nuclear staining. Tumor showing 1% - 10% tumor cells staining for ER are designated " ER Low Positive".HER 2 cassia "positive" (3+) requires circumferential membrane staining that is complete and intense within more than 10% of the invasive tumor cells. HER 2 cassia "equivocal" (2+) requires complete membrane staining that is weak / moderately intense in >10% of invasive tumor cells. HER 2 cassia "negative" (1+) requires incomplete, faint membrane staining in >10% of invasive tumor cells and HER 2 cassia "negative" (0) requires no staining or faint incomplete membrane staining in <= 10% of invasive tumor cells.The ER/HI Proportion Score indicates the proportion of positive staining tumor cells (0 = none; 1 < 1/100; 2 = 1/100- 1/10; 3 = >1/10-1/3; 4 = >1/3-2/3; 5> 2/3). The intensity score indicates the average intensity of positive staining tumor cells (0 = none; 1 = weak; 2 = intermediate; 3 = strong). For the purpose of defining "positive", the proportion and intensity scores were added to obtain a total score (range 0-8). ER and PgR "positive" (total score >2) were defined in studies correlating IHC total scores with clinical outcome in patients receiving hormonal therapy (see: Modern Pathol 11:155, 1998; J Clin Oncol17:1474, 1999; Int J Cancer 89:111, 2000; Breast Cancer Res Treat 76:S36[abst#30], 2002).Immunohistoc hemistry was performed on paraffin sections of breast tissue for the factors listed. The immunostaining signals were expressed as scores representing the estimated proportion and intensity of positive tumor cells. Appropriate positive and negative controls were included in the evaluation.COMMENTER lowpositive (1%-10% positive) - The cancer in this sample has a low level (1%-10%) of ER expression by IHC. There are limited data on the overall benefit of endocrine therapies for patients with low level(1%-10%) ER expression, but they currently suggest possible benefit, so patients are considered eligible for endocrine treatment. There are data that suggest invasive cancers with these results are heterogeneous in both behavior and biology and often have gene expression profiles more similar to ER-negative cancers.ER (0%-10%) and no internal control - No internal controls are present, but external controls are appropriately positive. If needed, testing another specimen that contains internal controls may be warranted for confirmation of ER status.Immunohistochemistry technical testing was performed at [facility], Pathology Laboratory where it was developed and its performance characteristics were determined. It has not been cleared or approved by the U.S. Food and Drug Administration. The FDA has determined that such clearance or approval is not necessary. The test is usedfor clinical purposes. It should not be regarded as investigational or for research. This laboratoryis certified under the Clinical Laboratory Improvement Amendments of 1988 (CLIA-88) as qualified to perform high complexity clinical laboratory testing. Addendum electronically signed by Sisi Amador MD on 11/18/2021 at 3:33 PMA. BREAST, RIGHT SKIN, EXCISION - SKIN, NEGATIVE FOR CARCINOMAB.BREAST, RIGHT CANDE ADULT MINISTRIES DIRECTOR GUIDED LUMPECTOMY - INFILTRATING LOBULAR CARCINOMA, PARTIALLY VARIANT SUBTYPE - GREATEST MACROSCOPIC (GROSS) MEASUREMENT : 41MM - HISTOLOGIC GRADE : 2/3 (3 + 2 + 1) BY ESBR CRITERIA - MITOTIC COUNT : 0-1 MITOSIS PER 10 HPF'S - LYMPHATIC INVASION IS PRESENT - NO TUMOR INFILTRAT ING LYMPHOCYTES - SURGICAL MARGINS : POSITIVE - POSTERIOR / SUPERIOR : POSITIVE, FOCALLY - SEE PART E FOR FINAL POSTERIOR / SUPERIOR - ANTERIOR / LATERAL : 0.5MM - MEDIAL : 0.8MM - INFERIOR : 8MM - BIOPSY SITE CHANGES (CLIP X 1) IDENTIFIED - LOBULAR CARCINOMA IN SITU - ATYPICAL LOBULAR HYPERPLASIA - BENIGN BREAST TISSUE - BIOMARKERS ARE PENDINGC. BREAST, LEFT, EXCISION - BENIGN BREAST TISSUE - BENIGNSKIND. LYMPH NODE, RIGHT SENTINEL #1, COUNT 586, BIOPSY - ONE LYMPH NODE WITH METASTATIC CARCINOMA (05/31) - METASTATIC FOCUS : 12MM - FOCAL EXTRANODAL EXTENSION PRESENTE. BREAST, RIGHT NEW SUPERIOR / POSTERIOR MARGIN, EXCISION - FIBROFATTY BREAST TISSUE - NEGATIVE FOR CARICNOMA Signing Pathologist Direct Phone Line: [phone] electronically signed by Sisi Amador MD on 11/18/2021 at 1:48 PM TUMOR STAGING(PATHOLOGY) S/P NEOADJUVANT ANTI-HORMONAL THERAPYAnatomic site of tumor : RIGHT breastHistologic type : Infiltrating lobular carcinoma, partially variant typeHistologic grade : G2, moderately differentiatedTumor size : 41mmPrimary tumor (T) : ypT2 Lymph node (N) : [id number] : NegativeLYMPH NODE SUMMARYTotal # of sentinel lymph nodes : 1Total # of non-sentinel lymph nodes : 0Total # of positive sentinel lymph nodes : 1INVASIVE CARCINOMA OF THE BREAST: ResectionINVASIVE CARCINOMA OF THE BREAST: COMPLETE EXCISION - All Iujclhmem7fw Edition - Protocol posted: 1SPECIMEN Procedure: Excision (less than total mastectomy) Specimen Laterality: Right TUMOR Histologic Type: Invasive lobular carcinoma Histologic Grade (Timpson Histologic Score): Glandular (Acinar) / Tubular Differentiation: Score 3 Nuclear Pleomorphism: Score 2 Mitotic Rate: Score 1 Overall Grade: Grade 2 (scores of 6 or 7) Tumor Size: Greatest dimension of largest invasive focus (Millimeters): 41 mm Tumor Focality: Single focus of invasive carcinoma Ductal Carcinoma In Situ (DCIS): Not identified Lymphovascular Invasion: Present Treatment Effect in the Breast: Probable or definite response to presurgical therapy in the invasive carcinoma Treatment Effect in the Lymph Nodes: No definite response to presurgical therapy in met astatic carcinoma MARGINS Margin Status for Invasive Carcinoma: All margins negative for invasive carcinoma Distance from Invasive Carcinoma to Closest Margin: 0.5 mm Closest Margin(s) to Invasive Carcinoma: Lateral REGIONAL LYMPH NODES Regional Lymph Node Status: : Tumor present in regional lymph node(s) Number of Lymph Nodes with Macrometastases: 1 Number of Lymph Nodes with Micrometastases: 0 Sizeof Largest Nay Metastatic Deposit: 12 mm Extranodal Extension: Present, 2 mm or less Total Number of Lymph Nodes Examined (sentinel and non-sentinel): 1 Number of Stirling Nodes Examined: 1 DISTANT ME TASTASISPATHOLOGIC STAGE CLASSIFICATION (pTNM, AJCC 8th Edition) Reporting of pT, pN, and (when applicable) pM categories is based on information available to the pathologist at the time the report is issued. As per the AJCC (Chapter 1, 8th Ed.) it is the managing physician's responsibility to establish the final pathologic stage based upon all pertinent information, including but potentially not limited to this pathology report. TNM Descriptors: y (post-treatment) pT Category: pT2 Regional Lymph Nodes Modifier: (sn): Stirling node(s) evaluated. pN Category: pN1a A. 41796 x 1B. 90753 x 1; 54191 x 1; 11779 x 4; 46077 x 1C. 44999 x 1D. 92960 x 1E. 14398 x 1Right breast cancer, estrogen receptor posit iveA. Breast, right skinB. Breast, right lumpectomyC. Breast, left tissueD. Lymph node, right sentinelE. Breast, right new superior / posterior marginA. Breast, Right.Received fresh labeled with the patient's name, medical record number and "breast, right" is a 5 x 3.5 x 1 cm aggregate of multiple wrinkled jamison skin ellipses. Specimen is serially sectioned and no gross lesions are identified. Vegetable Preparer sections are submitted in A1.B. Breast, Right.Received fresh, labeled with the patient's name,MRN and "breast, right" is a 20 g, 4.9 cm (superior to inferior), 4.2 cm (medial to lateral), and 1.8 cm (anterior to posterior) Cande sulfuric acid plant operator guided breast lumpectomy with a short stitch designating the superior margin and a long stitch designating the lateral margin. The specimen is serially sectioned from medial to lateral into 6 slices. There is a an area of fibrosis with a central hematoma in the boss perior/posterior aspect of slice 4 measuring 1.3 cm (superior to inferior), 0.6 cm (medial to lateral), and 1.4 cm (anterior to posterior). The fibrotic area is located 0.7 cm from the superior, 1.7 cmfrom the inferior, 2.1 cm from the medial, 1.4 cm from the lateral, 0.1 cm from the posterior, and 1.4 cm from the anterior margins. The specimen is x-rayed, the radiograph interpreted and there is a metallic biopsy clip in the fibrotic area in slice 4.The remaining tissue is 80% adipose tissue and 20% fibrous tissue. Vegetable Preparer sections are submitted.Time in formalin: 11/12/2021 at 0927Ink code:Blue: SuperiorRed: InferiorBlack: PosteriorYellow: AnteriorSection code:B1: Medial margin, perpendicular sections, superior aspect of slice 1B2-B3: Superior half of slice 2B4-B6: Entire slice 3 submittedsequentially from superior to inferior, tissue adjacent to fibrotic areaB7 : hematoma with fibrotic tissue to superior and posterior margins, biopsy clip site, slice 4B8 : fibrotic area to superior/ante rior margins, slice 4A9: Fibrotic area to anterior and posterior margins, slice 4B 10: Inferior margin of slice 4B 11-B 12 : tissue adjacent to fibrotic area to include superior/anterior/posterior margins, slice 5B 13: Inferior margin of slice 5B 14: Vegetable Preparer of lateral margin, perpendicular sections, superior aspect of slice 6C. Breast, Left.Received fresh labeled with the patient's name, medical record number and "breast, left" is a 20 g, 5.8 x 5.0 x 1.7 cm unoriented portion of fibroadiposetissue. Also received in the same container is a 5 x 3.5 x 2 cm aggregate of multiple wrinkled jamison skin ellipses. The portion of fibroadipose tissue is serially sectioned to reveal 30% fibrous tissue and 70% adipose tissue. No gross lesions are identified and the skin. Vegetable Preparer sections are submitted in C1-C2.D. Lymph Node, Stirling, Right Axilla.Received fresh labeled with the patient's name, medical record number and "lymph node, sentinel, right axilla" is a 2.5 x 1.5 x 1.0 cm pink-grade, partially fat replaced lymph node that is trisected and entirely submitted in D1-D3.E. Breast, Right.Received fresh labeled with the patient's name, medical record number and "breast, right" is a 3.5 x 2 x 1.1 cm irregular portion of yellow-white fibroadipose tissue. There is a stitch designating the newsuperior-posterior margin. The margin is inked blue, and the specimen is serially sectioned to reveal 20% fibrous tissue and 80% adipose tissue with no gross lesions. The specimen is entirely submitted.Section code:E1: One end, perpendicular sectionsE2-E5: Body of specimen, submitted sequentiallyE6-E7: Opposite end, perpendicular sectionsEVELYN Golden PA ([facility])cmB. Breast, Right.BREAST, RIGHT CANDE ADULT MINISTRIES DIRECTOR GUIDED LUMPECTOMY:-TUMOR, CLIP X1 AND HEMATOMA SEEN CLOSE TO SUPERIOR AND POSTERIOR EDGESReported by Dr. Amador to Dr. Gutierrez on 11/12/2021, at 0922.A-E. Performed.The interpretation of this case included the use of immunohistochemistry or special stains.Control Slides Examined: In-house known p ositive controls were evaluated along with the test tissue. These control slides run alongside of the patients sample show appropriate staining. Internal positive and negative controls when available are evaluated Immunohistochemistry technical testing was performed at [facility], Pathology Laboratory where it was developed and its performance characteristics were determined. Ithas not been cleared or approved by the U.S. Food and Drug Administration. The FDA has determined that such clearance or approval is not necessary. The test is used for clinical purposes. It should notbe regarded as investigational or for research. This laboratory is certified under the Clinical Laboratory Improvement Amendments of 1988 (CLIA-88) as qualified to perform high complexity clinical laboratory testing.[facility], Department of Pathology, [address] [place], [place] [address], [facility], [facility] of [facility], [address] [place] [address], [facility], [facility] of [facility],[address] [place] [address], LBD-Glucose [id number] 14:34:24 Test Item Value Reference Range Interpretation Comments POC-Glucose Meter (test 272 mg/dL 70-110 H : TE STED AT [facility] code = 1538) [address] [place] [address], [facility] 30: Health And Wellness Advisor/Techni channing ID = [id number] for Wanda Christensen Lab Interpretation (test Abnormal code = 72069-7) [facility]-Glucose [id number] 14:34:24 Test Item Value Reference Range Interpretation Comments POC-Glucose Meter (test 272 mg/dL 70-110 H : TE STED AT [facility] code = 1538) [address] [facility], [address] 30: Health And Wellness Advisor/Techni channing ID = [id number] for Christensen, Cryst al Lab Interpretation (test Abnormal code = 37624-5) [facility] [id number] 14:34:24 Test Item Value Reference Range Interpretation Comments POC-Glucose Meter (test 272 mg/dL 70-110 H : TE STED AT [facility] code = 1538) [address] [facility], 770 30: Health And Wellness Advisor/Techni channing ID = [id number] for Christensen, Cryst al Lab Interpretation (test Abnormal code = 46691-4) [facility] [id number] 14:34:24 Test Item Value Reference Range Interpretation Comments POC-GLUCOSE METER 272 mg/dL 70-110 H : TESTED A T [facility] 6720 (BEAKER) (test code = [facility], 1538) [address]: Health And Wellness Advisor/Techni channing ID = [id number] for Qu intero, Crystal POCT-GLUCOSE [id number] 12:14:47 Test Item Value Reference Range Interpretation Comments POC-GLUCOSE METER 237 mg/dL 70-110 H : TESTED A T [facility] 67[address] (BEAKER) (test code [facility], = 1538) [address]: Health And Wellness Advisor/Techni channing ID = [id number] for Amilcar on, Roxy POCT-GLUCOSE [id number] 11:03:09 Test Item Value Reference Range Interpretation Comments POC-GLUCOSE METER 199 mg/dL 70-110 H : TESTED A T [facility] [address] (BEAKER) (test code [facility], = 1538) [address]: Health And Wellness Advisor/Techni channing ID = [id number] for RAMYA Z, SIDRA POCT-GLUCOSE [id number] 10:09:47 Test Item Value Reference Range Interpretation Comments POC-GLUCOSE METER 179 mg/dL 70-110 H : TESTED A T [facility] 67[address] (BEAKER) (test code = [facility], 1538) [address]: Health And Wellness Advisor/Techni channing ID = [id number] for CA MPOS, FÉLIX POCT , [id number] 07:26:00 Test Item Value Reference Range Interpretation Comments Test Urine, POC (test Negative code = 8085584) Control line present?, POC (test Yes code = 9131828) Background clear?, POC (test code Yes = 3687006) UPT Cassette Lot #, POC (test code 2124528 = [id number]) UPT Cassette Expiration Date, POC 02/27/2023 (test code = 8451899) [facility] [id number] 07:26:00 Test Item Value Reference Range Interpretation Comments Test Urine, POC (test Negative code = 0638158) Control line present?, POC (test Yes code = 2492608) Background clear?, POC (test code Yes = 0275624) UPT Cassette Lot #, POC (test code 8023999 = [id number]) UPT Cassette Expiration Date, POC 02/27/2023 (test code = 3685807) [facility] [id number] 07:26:00 Test Item Value Reference Range Interpretation Comments Test Urine, POC (test Negative code = 2062960) Control line present?, POC (test Yes code = 1809644) Background clear?, POC (test code Yes = 5144008) UPT Cassette Lot #, POC (test code 5569313 = [id number]) UPT Cassette Expiration Date, POC 02/27/2023 (test code = 8564020) [facility] [id number] 07:15:23 Test Item Value Reference Range Interpretation Comments POC-GLUCOSE METER 170 mg/dL 70-110 H : TESTED A T [facility] 6720 (BEAKER) (test code = JOJO YANG MS, 1538) 12273: Health And Wellness Advisor/Techni channing ID = [id number] for Talita Richardson SENTINEL NODE INJECTION, [id number] 21:46:00Reason for exam:- >right breast [facility] : 1980 Sex: FFINAL REPORT PROCEDURE: SENTINEL NODE LOCALIZATION - NON IMAGING INDICATION: Right breast cancer PROTOCOL: A total of 4.1 mCi of Tc-99m tilmanocept was injected in the right breast by the nuclear plant technical advisor. One aliquot was injected subcutaneously in the subareolar area, a nd one aliquot was injected intradermally at the 9-10 o'clock position. IMPRESSION: Radiopharmaceutical injection for intraoperative sentinel node localization. Signed: Castro Payton MDReport Verified Date/Time: 11/11/2021 21:46:12 SARS-CoV2/RT-PCR (Asymptomatic ONLY)2021-11-10 20:54:55 Test Item Value Reference Range Interpretation Comments SARS-COV2/RT-PCR (test Negative Negative code = 51963-3) GREGORIA (test code = GREGORIA) Negative result for this test determines that SARS-CoV-2 RNA was not present in the specimen above the Limit of Detection (LOD). However, Negative results do not preclude SARS-CoV-2 infection and should not be used as the sole basis for treatment or patient management decisions. Negative results must be combined with clinical observations, patient history, and epidemiological information. A false negative result may occur if a specimen is improperly collected, transported, or handled. A false negative result should be considered if patient's recent exposures or clinical presentation indicate that COVID-19 (SARS-CoV-2) is likely and diagnostic tests for other causes of illness are negative. Re-testing should be considered in cases of suspected false negatives. The limit of detection for this assay is 100 copies/mL. This SARS-CoV-2 test is a real-time RT_PCR test intended for the qualitative detection of nucleic acid from SARS-CoV-2 in a nasopharyngeal swab specimen collected from individuals suspected of COVID-19 by their healthcare provider. This test has not been Food and Drug Administration (FDA) cleared or approved. This is a modified version of an approved Emergency Use Authorization (EUA) and is in the process of review by the FDA. Once authorized by the FDA, the issued EUA will be effective until the declaration that circumstances exist justifying the authorization of the emergency use of in vitro diagnostic tests for detection and/or diagnosis of COVID-19 is terminated under Section 564(b)(2) of the Act or the EUA is revoked under Section 564(g) of the Act. Testing was performed using the JagTag SARS-CoV-2 assay. Fact Sheet for Healthcare Providers:https://www.lacie louisDataEmail Group/ashley/RT SARS-CoV-2 HCP Fact Sheet 51-401267.pdf Fact Sheet for Healthcare Patients:https://www.ioana sanchezZeusControls/ashley/RT SARS-CoV-2 Patient Fact Sheet EN 51-817570W5.pdf Lab Interpretation Normal (test code = 66373-7) [facility]2021-11-10 20:54:55 Test Item Value Reference Range Interpretation Comments SARS-COV2/RT-PCR (test Negative Negative code = 96874-0) GREGORIA (test code = GREGORIA) Negative result for this test determines that SARS-CoV-2 RNA was not present in the specimen above the Limit of Detection (LOD). However, Negative results do not preclude SARS-CoV-2 infection and should not be used as the sole basis for treatment or patient management decisions. Negative results must be combined with clinical observations, patient history, and epidemiological information. A false negative result may occur if a specimen is improperly collected, transported, or handled. A false negative result should be considered if patient's recent exposures or clinical presentation indicate that COVID-19 (SARS-CoV-2) is likely and diagnostic tests for other causes of illness are negative. Re-testing should be considered in cases of suspected false negatives. The limit of detection for this assay is 100 copies/mL. This SARS-CoV-2 test is a real-time RT_PCR test intended for the qualitative detection of nucleic acid from SARS-CoV-2 in a nasopharyngeal swab specimen collected from individuals suspected of COVID-19 by their healthcare provider. This test has not been Food and Drug Administration (FDA) cleared or approved. This is a modified version of an approved Emergency Use Authorization (EUA) and is in the process of review by the FDA. Once authorized by the FDA, the issued EUA will be effective until the declaration that circumstances exist justifying the authorization of the emergency use of in vitro diagnostic tests for detection and/or diagnosis of COVID-19 is terminated under Section 564(b)(2) of the Act or the EUA is revoked under Section 564(g) of the Act. Testing was performed using the JagTag SARS-CoV-2 assay. Fact Sheet for Healthcare Providers:https://www.lacie louisjackman/ashley/RT SARS-CoV-2 HCP Fact Sheet 51-925373.pdf Fact Sheet for Healthcare Patients:https://www.ioana yeagerDataEmail Group/ashley/RT SARS-CoV-2 Patient Fact Sheet EN 51-766780V4.pdf Lab Interpretation Normal (test code = 55612-7) [facility]2021-11-10 20:54:55 Test Item Value Reference Range Interpretation Comments SARS-COV2/RT-PCR (test Negative Negative code = 82729-9) GREGORIA (test code = GREGORIA) Negative result for this test determines that SARS-CoV-2 RNA was not present in the specimen above the Limit of Detection (LOD). However, Negative results do not preclude SARS-CoV-2 infection and should not be used as the sole basis for treatment or patient management decisions. Negative results must be combined with clinical observations, patient history, and epidemiological information. A false negative result may occur if a specimen is improperly collected, transported, or handled. A false negative result should be considered if patient's recent exposures or clinical presentation indicate that COVID-19 (SARS-CoV-2) is likely and diagnostic tests for other causes of illness are negative. Re-testing should be considered in cases of suspected false negatives. The limit of detection for this assay is 100 copies/mL. This SARS-CoV-2 test is a real-time RT_PCR test intended for the qualitative detection of nucleic acid from SARS-CoV-2 in a nasopharyngeal swab specimen collected from individuals suspected of COVID-19 by their healthcare provider. This test has not been Food and Drug Administration (FDA) cleared or approved. This is a modified version of an approved Emergency Use Authorization (EUA) and is in the process of review by the FDA. Once authorized by the FDA, the issued EUA will be effective until the declaration that circumstances exist justifying the authorization of the emergency use of in vitro diagnostic tests for detection and/or diagnosis of COVID-19 is terminated under Section 564(b)(2) of the Act or the EUA is revoked under Section 564(g) of the Act. Testing was performed using the Jackman SARS-CoV-2 assay. Fact Sheet for Healthcare Providers:https://www.lacie stacy/ashley/RT SARS-CoV-2 HCP Fact Sheet 51-283725.pdf Fact Sheet for Healthcare Patients:https://www.ioana sanchezZeusControls/ashley/RT SARS-CoV-2 Patient Fact Sheet EN 51-187181K1.pdf Lab Interpretation Normal (test code = 92453-8) [facility])2021-11-10 20:54:55 Test Item Value Reference Range Interpretation Comments SARS-COV2/RT-PCR (test code = Negative Negative 1118327) Negative result for this test determines that SARS-CoV-2 RNA was not present in the specimen above the Limit of Detection (LOD). However, Negative results do not preclude SARS-CoV-2 infection and should not be used as the sole basis for treatment or patient management decisions. Negative results must be combined with clinical observations, patient history, and epidemiological information. A false negative result may occur if a specimen is improperly collected, transported, or handled. A false negative result should be considered if patient's recent exposures or clinical presentation indicate that COVID-19 (SARS-CoV-2) is likely and diagnostic tests for other causes of illness are negative. Re-testing should be considered in cases of suspected false negatives.The limit of detection for this assay is 100 copies/mL.This SARS-CoV-2 test is a real-time RT_PCR test intended for the qualitative detection of nucleic acid from SARS-CoV-2 in a nasopharyngeal swab specimen collected from individuals suspected of COVID-19 by their healthcare provider.This test has not been Food and Drug Administration (FDA) cleared or approved. This is a modified version of an approved Emergency Use Authorization (EUA) and is in the process of review by the FDA. Once authorized by the FDA, the issued EUA will be effective until the declaration that circumstances exist justifying the authorization of the emergency use of in vitro diagnostic tests for detection and/or diagnosis of COVID-19 is terminated under Section 564(b)(2) of the Act or the EUA is revoked under Section 564(g) of the Act.Testing was performed using the Jackman SARS-CoV-2 assay.Fact Sheet for Healthcare Providers:https://www.Surface [employer].DataEmail Group/ashley/RT SARS-CoV-2 HCP Fact Sheet 51- 586459.pdfFact Sheet for Healthcare Patients:https://www.Joota/ashley/RT SARS-CoV-2 Patient Fact Sheet EN 51-580925C5.pdfBASIC METABOLIC [id number] 10:41:55 Test Item Value Reference Range Interpretation Comments SODIUM (BEAKER) 131 meq/L 136-145 L (test code = 381) POTASSIUM (BEAKER) 4.6 meq/L 3.5-5.1 (test code = 379) CHLORIDE (BEAKER) 94 meq/L 98-107 L (test code = 382) CO2 (BEAKER) (test 31 meq/L 22-29 H code = 355) BLOOD UREA NITROGEN 8 mg/dL 7-21 (BEAKER) (test code = 354) CREATININE (BEAKER) 0.81 mg/dL 0.57-1.25 (test code = 358) GLUCOSE RANDOM 334 mg/dL 70-105 H (BEAKER) (test code = 652) CALCIUM (BEAKER) 8.7 mg/dL 8.4-10.2 (test code = 697) EGFR (BEAKER) (test 79 mL/min/1.73 ESTIMA RU GFR IS code = 1092) sq m NOT ACCURATE CREATININE CLEARANCE IN PREDICTING GLOMERULAR FILTRATION RATE . ESTIMATED GFR I S NOT APPLICABLE FOR DIALYSIS PATIEN TS. Health And Wellness Advisor ID - ESCOBAR [id number] 10:10:49 Test Item Value Reference Range Interpretation Comments HEMOGLOBIN (BEAKER) (test code = 12.7 GM/DL 11.2-15.7 410) Health And Wellness Advisor ID - [id number], BIOPSY BREAST, [id number] 13:57:00Reason for Exam:- >Malignant neoplasm of upper-outer quadrant of right breast in femaleDoes the patient have an implanted electronic device?->No [facility] : 1980 Sex: FMRN#: [id number] - MR, BIOPSY BREAST, RIGHT MRI BIOPSY RIGHT BREAST USING VACUUM DEVICE WITH MARKING DEVICE INSERTED AND POST DIGITAL MAMMOGRAPHIC IMAGIN2CLINICAL: 41-year-old woman here for MRI guided bx. PATIENT CONSENT: The procedure, risks, benefits and alternatives have been discussed with the patient. Informed consent was obtained and a time-out was performed. No prior exams were available for comparison. Axial and sagittal T1 and T2 images were obtained with a breast MRI. An MRI biopsy was performed for the enhancing focus located in the right breast at 10 o'clock anterior depth. This was described on the previous MRI report. The skin was prepped in the usual manner. Local anesthetic was administered to the access site. The abnormality was approached from the lateral aspect. A 9 gauge biopsy needle was placed adjacent to the abnormality under MRI guidance. Additional MRI images were obtained to document needle placement. Once the needle was documented to be in the correct location, twelve cores were obtained using the Papirus system. A clip was inserted into the biopsy cavity. Post procedure digital mammographic imaging demonstrates the location device at the targeted area. The specimens were sent to the laboratory for pathological analysis. This procedure was performed by Dr. Schmitt under the supervision of Dr. Iglesias, staff radiologist. The staff radiologist waspresent during the entire procedure. IMPRESSION: MRI BIOPSYMRI biopsy of the enhancing focus in the right breast at 10 o'clock anterior depth was successful with no apparent post procedure complications. Waiting for pathology results. A final report will be issued when these become available. The procedure was reviewed by a staff physician. Eulalia Schmitt M.D.jayne,ct/:10/07/2021 13:57:25 [employer]: Caren Robertson, [facility] [place] [address] MR, MRI BREAST, WITHOUT / WITH IV CONTRAST, [id number] 13:19:00Unlisted Reason for Exam - Click Yes and Enter Reason Below->YesUnlisted Reason for Exam->Malignant neoplasm of upper-outer quadrant of right breast in femaleAnesthesia:->None [facility] : 1980 Sex: FAddendum BeginsN#: [id number]: 09/02/2021 Santo Marie M.D. Per discussion with breast surgery, the patient is planning mastectomy for management of her breast cancer, and the MRI-guided biopsy of the right breast is not necessary to guide management. Amended BI-RADS: 6 Known biopsy proven malignancy Addendum EndsMRN#: [id number] - MR, MRI BREAST, WITHOUT / WITH IV CONTRAST, BILATERAL CASEY AST MRI OF BOTH BREASTS: 08/14/2021LINICAL: Right breast invasive lobular carcinoma. Comparison is made to prior mammogram dated 02/14/2021 and outside MRI from 03/11/2021. Multi-sequence images of bothbreasts were obtained without and with 7 cc intravenous gadolinium. DynaCAD was used. 1. There is heterogenous fibroglandular tissue with mild background parenchymal enhancement. There are scattered non-specific enhancing foci bilaterally. 2. RIGHT BREAST: A 4.2 x 3.4 x 1.5 cm (CC x AP x TV) area of mass and predominantly non-mass enhancement with progressive kinetics in the posterior upper outer breast representing biopsy- proven ILC (axial post contrast imge 170) has slightly decreased in size, prev iously measuring up to 8.5 cm spanning from anterior to posterior depth. This area was previously composed of a conglomerate of masses, but is now predominantly non-mass enhancement. In the anterior upper outer breast is a 5 mm subthreshold enhancing focus (image 171), which was previously contiguous with the known cancer on the prior MRI. 3. LEFT BREAST: There are no suspicious enhancing masses or areas of non-mass enhancement. 4. No enlarged axillary or internal mammary lymph nodes. Limited visualization of the thorax and upper abdomen is unremarkable. IMPRESSION: SUSPICIOUS OF MALIGNANCY 1. Biopsy proven right breast cancer in the posterior upper outer breast measures up to 4.2 cm, decreased from 03/11/2021 MRI when it measured up to 8.5 cm from anterior to posterior depth. 2. A 0.5 cm enhancing focus in the anterior upper outer right breast is suspicious of malignancy and appeared contiguouswith the biopsy proven cancer on the initial MRI. An MRI-guided biopsy of this anterior focus is jean mmended to establish extent of disease. The exam was reviewed by a staff physician. Results and recommendations were discussed with the patient. Santo Schmitt M.D.rl,ct/:08/14/2021 14:36:46 Biopsy Required MRI BI-RADS: 4 Suspicious for malignancy [id number] FSH + LH [id number] 12:53:52 Test Item Value Reference Range Interpretation Comments FOLLICLE STIMULATING SEE BELOW IU/L $$$$ $$$ EXPECTED HORMONE (test code = [place] [address]-6) FEMALES >17 YEA RS $$$$$$$ MALES FEMALES >=18 YEARS 1.5- 12.4 IU/L FOLLICULAR 3.5-12.5 IU/L MID-CYCLE PEAK 4.7-21.5 IU/L L UTEAL PHASE 1.7-7.7 I U/L POSTMENOPAUSAL 25.8-134.8 IU/L LUTEINIZING HORMONE SEE BELOW IU/L L $$$$$ $$ EXPECTED (test code = 13984-6) VALUES FOR LH FOR FEMALES >17 YEA RS $$$$$$$ MALES F EMALES >=18 YEARS 1.8- 8.6 IU/L FOLLICULAR 2.4-12.6 IU/L MID-CYCLE PEAK 14.0-95.6 IU/L LUTEAL PHASE 1.0-11.4 IU/L POSTMENOPAUSAL 7.7-58.5 IU/L V alues in the range of 0.3 - 0.9 IU/L may demonstrate inc reased imprecision. Cl inical correlation is recommended. Un less Otherwise Indic ated, All Testing Per formed At: [facility], [address] [place] [id number] Laborator y Director: Arnold Maurice M.D. CLIA Number [id number] Cap Accreditation N o. [id number] Lab Interpretation Abnormal (test code = 65555-8) [id number] 12:53:52 Test Item Value Reference Range Interpretation Comments ESTRADIOL LEVEL (test <17.0 SEE BELOW PG/ML No te: Estradiol code = 2243-4) sensitivity i s 17 PG/ML. If lower levels of quantitation ar e necessary, cons ider ultrasensitive estradiol by LC-MS/MS. $$ $$$$ EXPECTED VALUES FOR ESTRADIOL FOR F EMALES >=18 YEARS $$$$$$ FO LLICULAR . . . . . . . . . . . . . PG/ML 12.4-233. 0 OVULATION. . . . . . . . . . . . . . PG/ML 41.0-398.0 LUTEAL PHASE . . . . . . . . . . . . PG/ML 22.3-341.0 POSTMENOPAUSAL SUPPLEMENTED/NO N-SUPP . PG/ML <138.0/<2 0.0 NOTE: TO DETERMINE NO RMAL VS. SUBNORMAL ESTRA DIOL IN POSTMENOPAUSAL FEMALES, CONSIDER ULTRAS ENSITIVE ESTRADIOL (CPL ORDER CODE 5678). METHODOL OGY IS RADHA ANGEL ELECTROCHEMILUM INESCENT IMMUNOASSAY WIT H A LIMIT OF DETECTION OF 17 PG/ML. Unless Otherwis e Indicated, All Testing Performed At: [facility], [address] [place] [address], [place] [address] Laborator y Director: Arnold west M.D. IA Number [id number] Cap Accreditation N o. [id number] [facility]
[2022-03-30] MEDS ORDERED: NA CHLORIDE 0.9% 1,000 ML ONE (15:23)
[2022-03-30] MEDS ORDERED: MORPHINE 4 MG/ML SYR ONE (15:23)
[2022-03-30] MEDS ORDERED: ONDANSETRON 4 MG/2 ML VIAL ONE (15:23)
[2022-03-30] MEDS ORDERED: FAMOTIDINE 20 MG/2 ML VIAL IV ONE (15:24)
[2022-03-30 15:55] LABS: Lymphocytes % 12.9 % (15.3-44.8); MCV 97.1 fL (80-100); MPV 8.2 fL (7.6-11.3); RBC Red Blood Cell Count 4.01 M/uL (3.86-4.86)
[2022-03-30 16:03] LABS: Albumin 3.4 g/dL (3.4-5.0); Bilirubin Total 0.5 mg/dL (0.2-1.0); Protein, Total 7.6 g/dL (6.4-8.2)
--- NOTE | 2022-03-30 16:28 | RAD REPORT ---
EXAM DESCRIPTION: US - Abdomen Exam Limited - 03/30/2022 4:18 pm CLINICAL HISTORY: ABD PAIN COMPARISON: No comparisons FINDINGS: Gallbladder is absent. No mass or abnormal fluid collection in the gallbladder fossa. No i ntrahepatic or extrahepatic biliary tree dilatation identified. Pancreas is grossly normal. The pancreas is partially obscured by prominent bowel gas. IMPRESSION: Status post cholecystectomy with no abnormal biliary tree finding. Partially imaged pancreas is unremarkable. There are portions obscured due to prominent bowel.
[2022-03-30] MEDS ORDERED: DICYCLOMINE HCL 10 MG CAP ONE (16:51)
--- NOTE | 2022-03-30 17:05 | EDPHYS ---
Physician Documentation [facility] Name: Marzena Licona Age: 41 yrs Sex: Female : 1980 Arrival Date: 03/30/2022 Time: 14:27 Bed 12 Private MD: ED Physician Joey Forrester HPI: 03/30 16:46 This 41 yrs old Female presents to ER via Ambulatory with complaints of Abdominal Pain. snw 16:46 The patient presents with abdominal pain in the epigastric area, in the upper abdomen. snw Onset: The symptoms/episode began/occurred gradually, 2 day(s) ago, and became persistent. The symptoms do not radiate. Associated signs and symptoms: none. The symptoms are described as steady. Severity of pain: At its worst the pain was moderate. The patient has not experienced similar symptoms in the past. It is unknown whether or not the patient has recently seen a physician. hx of IDDM, breast ca, HTN, wt loss surgery with cholecystectomy, no hx of pancreatitis. 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 - Social history:: Smoking status: Reported history of juuling and/or vaping. ROS: 16:46 Constitutional: Negative for fever, chills, and weight loss, Eyes: Negative for injury, snw pain, redness, and discharge, ENT: Negative for injury, pain, and discharge, Neck: Negative for injury, pain, and swelling, Cardiovascular: Negative for chest pain, palpitations, and edema, Respiratory: Negative for shortness of breath, cough, wheezing, and pleuritic chest pain, Back: Negative for injury and pain, : Negative for injury, bleeding, discharge, and swelling, MS/Extremity: Negative for injury and deformity, Skin: Negative for injury, rash, and discoloration, Neuro: Negative for headache, weakness, numbness, tingling, and seizure, Psych: Negative for depression, anxiety, suicide ideation, homicidal ideation, and hallucinations. 16:46 Abdomen/GI: Positive for abdominal pain, of the epigastric area and right upper quadrant. Exam: 16:46 Constitutional: This is a well developed, well nourished patient who is awake, alert, snw and in no acute distress. Head/Face: Normocephalic, atraumatic. Eyes: Pupils equal round and reactive to light, extra-ocular motions intact. Lids and lashes normal. Conjunctiva and sclera are non-icteric and not injected. Cornea within normal limits. Periorbital areas with no swelling, redness, or edema. ENT: Nares patent. No nasal discharge, no septal abnormalities noted. Tympanic membranes are normal and external auditory canals are clear. Oropharynx with no redness, swelling, or masses, exudates, or evidence of obstruction, uvula midline. Mucous membranes moist. Neck: Trachea midline, no thyromegaly or masses palpated, and no cervical lymphadenopathy. Supple, full range of motion without nuchal rigidity, or vertebral point tenderness. No Meningismus. Chest/axilla: Normal chest wall appearance and motion. Nontender with no deformity. No lesions are appreciated. Cardiovascular: Regular rate and rhythm with a normal S1 and S2. No gallops, murmurs, or rubs. Normal PMI, no JVD. No pulse deficits. Respiratory: Lungs have equal breath sounds bilaterally, clear to auscultation and percussion. No rales, rhonchi or wheezes noted. No increased work of breathing, no retractions or nasal flaring. Back: No spinal tenderness. No costovertebral tenderness. Full range of motion. Skin: Warm, dry with normal turgor. Normal color with no rashes, no lesions, and no evidence of cellulitis. MS/ Extremity: Pulses equal, no cyanosis. Neurovascular intact. Full, normal range of motion. Neuro: Awake and alert, GCS 15, oriented to person, place, time, and situation. Cranial nerves II-XII grossly intact. Motor strength 5/5 in all extremities. Sensory grossly intact. Cerebellar exam normal. Normal gait. Psych: Awake, alert, with orientation to person, place and time. Behavior, mood, and affect are within normal limits. 16:46 Abdomen/GI: Inspection: abdomen appears normal, Bowel sounds: normal, Palpation: mild abdominal tenderness, in the epigastric area and right upper quadrant. Vital Signs: 14:48 BP 128 / 98; Pulse 90; Resp 18; Temp 98.9; Pulse Ox 98% on R/A; Weight 72.57 kg; Height kr3 5 ft. 5 in. (165.10 cm); Pain 6/10; 15:30 BP 121 / 90; Pulse 70; Resp 18; Pulse Ox 99% on R/A; kr3 16:36 BP 117 / 91; Pulse 68; Resp 18; Pulse Ox 98% on R/A; kr3 17:18 BP 122 / 91; Pulse 67; Resp 18; Pulse Ox 98% on R/A; kr3 14:48 Body Mass Index 26.63 (72.57 kg, 165.10 cm) kr3 MDM: 14:53 Patient medically screened. snw 16:48 Data reviewed: vital signs, nurses notes. Data interpreted: Pulse oximetry: on room air snw is 98 %. Interpretation: normal. Counseling: I had a detailed discussion with the patient and/or guardian regarding: the historical points, exam findings, and any diagnostic results supporting the discharge/admit diagnosis, lab results, radiology results, the need for outpatient follow up, to return to the emergency department if symptoms worsen or persist or if there are any questions or concerns that arise at home. Special discussion: Based on the patient's Hx, exam, and Dx evaluation, there is no indication for emergent surgery or inpatient Tx. It is understood by the patient/guardian that if the Sx's persist or worsen they need to return immediately for re-evaluation. Based on the history and exam findings, there is no indication for further emergent testing or inpatient evaluation. I discussed with the patient/guardian the need to see the primary care provider for further evaluation of the symptoms. 03/30 15:08 Order name: CBC with Diff; Complete Time: 16:08 snw 03/30 15:08 Order name: CMP; Complete Time: 16:08 snw 03/30 15:08 Order name: US Abdomen Limited; Complete Time: 16:29 snw 03/30 15:08 Order name: Lipase; Complete Time: 16:08 snw 03/30 15:08 Order name: IV Saline Lock; Complete Time: 15:38 snw 03/30 15:08 Order name: Labs collected and sent; Complete Time: 15:38 snw Administered Medications: 15:38 Drug: NS 0.9% 1000 ml Route: IV; Rate: 1 bolus; Site: right antecubital; kr3 17:38 Follow up: Response: No adverse reaction; IV Status: Completed infusion; IV Intake: kr3 1000ml 15:38 Not Given (Patient Refused): Pepcid (famotidine) 20 mg IVP once; dilute with 10 mL 0.9% kr3 NaCl; give over 2 minutes 15:38 Not Given (Patient Refused): Zofran (Ondansetron) 4 mg IVP once; over 2 minutes kr3 15:38 Not Given (Patient Refused): morphine 4 mg IVP once over 4 mins kr3 16:53 Drug: Bentyl (dicyclomine) 20 mg Route: PO; kr3 17:18 Follow up: Response: No adverse reaction kr3 Disposition: 19:11 Co-signature as Attending Physician, Joey Forrester MD I agree with the assessment and kdr plan of care. Disposition Summary: 03/30/22 17:04 Discharge Ordered Location: Home snw Condition: Stable snw Diagnosis - Upper abdominal pain, unspecified snw - Muscle spasm snw Followup: snw - With: Emergency Department - When: As needed - Reason: Worsening of condition Followup: snw - With: Private Physician - When: 5 - 6 days - Reason: Recheck today's complaints, Continuance of care, Re-evaluation by your physician Discharge Instructions: - Discharge Summary Sheet snw - Abdominal Pain, Adult snw - Muscle Cramps and Spasms snw - Rehydration, Adult snw Forms: - Medication Reconciliation Form snw - Thank You Letter snw - Antibiotic Education snw - Prescription Opioid Use snw Prescriptions: - dicyclomine 20 mg Oral tablet - take 1 tablet by ORAL route 3 times per day; 30 tablet; Refills: 0, Product snw Selection Permitted Signatures: Dispatcher [employer] Joey Galeana MD MD kdr Waters, Shelly, FNP-C BOOM TENDER-Csnw Jacqueline Germain RN RN kr3
--- NOTE | 2022-03-30 17:05 | ER ---
Nurse's Notes [facility] Name: Marzena Licona Age: 41 yrs Sex: Female : 1980 Arrival Date: 03/30/2022 Time: 14:27 Bed 12 Private MD: Diagnosis: Upper abdominal pain, unspecified;Muscle spasm Presentation: 03/30 14:48 Chief complaint: Patient states: dull pain that started on the ULQ x 4 days ago that kr3 has gotten better. Now There is a sharp pain in the RUQ that started last night and is getting worse. Coronavirus screen: Vaccine status: Patient reports receiving the 2nd dose of the covid vaccine. Client denies travel out of the [place] in the last 14 days. Ebola Screen: Patient denies travel to an Ebola-affected area in the 21 days before illness onset. Initial Sepsis Screen: Does the patient meet any 2 criteria? No. Patient's initial sepsis screen is negative. Does the patient have a suspected source of infection? Yes: Acute abdominal pain. Risk Assessment: Do you want to hurt yourself or someone else? Patient reports no desire to harm self or others. Onset of symptoms was March 29, 2022. 14:48 Method Of Arrival: Ambulatory kr3 14:48 Acuity: ANDRZEJ 3 kr3 Triage Assessment: 14:53 General: Appears in no apparent distress. uncomfortable, Behavior is calm, cooperative, kr3 appropriate for age. Pain: Complains of pain in right upper quadrant Pain at worst was 6 out of 10 on a pain scale. Pain began 1 day ago. 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 - Social history:: Smoking status: Reported history of juuling and/or vaping. Screenin:19 Abuse screen: Denies threats or abuse. Nutritional screening: No deficits noted. kr3 Tuberculosis screening: No symptoms or risk factors identified. Fall Risk None identified. Assessment: 15:00 General: Appears in no apparent distress. comfortable, Behavior is calm, cooperative, kr3 appropriate for age. Cardiovascular: Patient's skin is warm and dry. Respiratory: Airway is patent Respiratory effort is even, unlabored, Respiratory pattern is regular, symmetrical. GI: Abdomen is tender to palpation in right upper quadrant. 16:00 Reassessment: No changes from previously documented assessment. Patient and/or family kr3 updated on plan of care and expected duration. Pain level reassessed. Patient is alert, oriented x 3, equal unlabored respirations, skin warm/dry/pink. 17:00 Reassessment: No changes from previously documented assessment. Patient and/or family kr3 updated on plan of care and expected duration. Pain level reassessed. Patient is alert, oriented x 3, equal unlabored respirations, skin warm/dry/pink. 17:37 GI: kr3 Vital Signs: 14:48 BP 128 / 98; Pulse 90; Resp 18; Temp 98.9; Pulse Ox 98% on R/A; Weight 72.57 kg; Height kr3 5 ft. 5 in. (165.10 cm); Pain 6/10; 15:30 BP 121 / 90; Pulse 70; Resp 18; Pulse Ox 99% on R/A; kr3 16:36 BP 117 / 91; Pulse 68; Resp 18; Pulse Ox 98% on R/A; kr3 17:18 BP 122 / 91; Pulse 67; Resp 18; Pulse Ox 98% on R/A; kr3 14:48 Body Mass Index 26.63 (72.57 kg, 165.10 cm) kr3 ED Course: 14:27 Patient arrived in ED. as 14:28 Isabelle Dixon [facility]-C [facility]. snw 14:28 Joey Forrester MD is Attending Physician. snw 14:48 Jacqueline Germain RN is Primary Nurse. kr3 14:49 Patient placed in an exam room, on a stretcher. kr3 14:51 Triage completed. kr3 14:51 Bed in low position. Call light in reach. Side rails up X 1. kr3 15:30 Inserted saline lock: 22 gauge in right antecubital area, using aseptic technique. kr3 Blood collected. 16:20 US Abdomen Limited In Process Unspecified. EDMS 17:21 Arm band placed on. kr3 17:36 No provider procedures requiring assistance completed. IV discontinued, intact, kr3 bleeding controlled, No redness/swelling at site. Pressure dressing applied. Administered Medications: 15:38 Drug: NS 0.9% 1000 ml Route: IV; Rate: 1 bolus; Site: right antecubital; kr3 17:38 Follow up: Response: No adverse reaction; IV Status: Completed infusion; IV Intake: kr3 1000ml 15:38 Not Given (Patient Refused): Pepcid (famotidine) 20 mg IVP once; dilute with 10 mL 0.9% kr3 NaCl; give over 2 minutes 15:38 Not Given (Patient Refused): Zofran (Ondansetron) 4 mg IVP once; over 2 minutes kr3 15:38 Not Given (Patient Refused): morphine 4 mg IVP once over 4 mins kr3 16:53 Drug: Bentyl (dicyclomine) 20 mg Route: PO; kr3 17:18 Follow up: Response: No adverse reaction kr3 Medication: 17:37 VIS not applicable for this client. kr3 Intake: 17:38 IV: 1000ml; Total: 1000ml. kr3 Outcome: 17:04 Discharge ordered by . snana 17:18 Patient left the ED. kr3 17:37 Discharged to home ambulatory. kr3 17:37 Condition: stable 17:37 Discharge instructions given to patient, Instructed on discharge instructions, follow up and referral plans. medication usage, Demonstrated understanding of instructions, follow-up care, medications, Prescriptions given X 1. Signatures: Dispatcher [employer] EDMS Isabelle Dixon, PRECISION GRINDER EXTERNAL-C PRECISION GRINDER EXTERNAL-Csnw Jaci Ballard Kelley, RN RN kr3
[2022-03-30 17:27] VITALS: TEMP 98.9
[2022-03-30 17:38] VITALS: O2SAT 98
[2022-03-30 17:50] VITALS: BP 122/91
== END 2022-03-30 17:18 | disposition home or self-care (01) ==
LOC: ER 14:25
DX: M62.838 Other muscle spasm (principal); E11.9 Type 2 diabetes mellitus without complications; I10 Essential (primary) hypertension; Z79.4 Long term (current) use of insulin; Z85.3 Personal history of malignant neoplasm of breast
CPT/HCPCS: 96361; 85025; 36415; 83690; 80053; 76705; 96360; 99284; J7030; J2405